=== PATIENT | female | born 1950 | race Caucasian/White ===

== ENCOUNTER → 2017-11-19 09:12 | Outpatient (CLI) | payer MEDICARE, OTHER, SELFPAY ==
--- NOTE | 2017-11-19 09:19 | MM_ITS ---
MM Dig screening mamm BI w/CAD CAD Screening COMPARISON: Digital mammograms 06/14/2015 and 10/08/2016 INDICATION: There is no personal or family history of breast cancer TECHNIQUE: Standard CC and MLO images were obtained. R2 CAD reviewed. FINDINGS: Moderate diffuse fibroglandular densities are seen in both breasts and the findings are bilateral and symmetrical. There are stable benign-appearing calcination is in each breast. There are small nodes in the axillary tails of each breast stable and unchanged from previous exams. There is no suspicious lesion and no suspicious microcalcifications. IMPRESSION: Stable exam no suspicious lesion seen BI-RADS Category: 2 Benign Finding(s) RECOMMENDED FOLLOW-UP: 1YR - 1 YEAR FOLLOW-UP (A letter has been sent to the patient regarding results of the study.)
== END ==
PROVIDERS: PCP Internal Medicine Adolescent Medicine; Visit Provider Internal Medicine Adolescent Medicine
DX: Z12.31 Encounter for screening mammogram for malignant neoplasm of breast (principal)
CPT/HCPCS: 77067

== ENCOUNTER → 2018-02-25 07:53 | Outpatient (CLI) | payer MEDICARE, OTHER, SELFPAY ==
--- NOTE | 2018-02-25 08:09 | MR_ITS ---
MR head/brain wo/w con HISTORY: ITS.REASON: SIXTH NERVE PALSY OF LEFT EYE, blurred vision, dysthymia ORDERING PHYSICIAN: Sidney Maldonado MD PATIENT AGE: 67 years TECHNIQUE: Standard multiplanar multiecho sequences are performed without contrast. FINDINGS: No midline shift, mass effect, intracranial hemorrhage, or hydrocephalus. No evidence of acute infarction. The cerebellopontine angle, cerebellum, and brainstem are unremarkable. There are a few scattered periventricular and subcortical T2 white matter hyperintensities. These do not demonstrate restricted diffusion and do not demonstrate contrast enhancement and may represent ischemic gliotic change from microvascular disease. No enhancing lesions are evident. Hippocampal gyri are unremarkable in the temporal horns are symmetric. No evidence of skull base lesion. No obvious aneurysm. Small aneurysms may not be detected with this technique and may be better evaluated for with MRA if clinically warranted. No mastoid effusion or sinus air-fluid level. The pituitary gland has an unremarkable appearance. No mass effect upon the optic chiasm. The optic tracts have an unremarkable appearance. No obvious orbital mass. IMPRESSION: 1. No acute intracranial finding. 2. Scattered T2 white matter hyperintensities which may be due to ischemic gliotic change from microvascular disease. Differential diagnosis would include multiple sclerosis or migraine headache. This correlate with clinical parameters.
[2018-02-25 08:12] LABS: Blood Urea Nitrogen 16 mg/dL (7-18); Creatinine,Serum 0.56 mg/dL (0.55-1.02); Estimated Glomerular Filt Rate 107 ml/min (>60); GFR (African American) 130 ML/MIN (>60)
[2018-02-25 09:56] LABS: Basophils % 0.8 % (0.1-2.0); Eosinophils # 0.2 K/mm3 (0.0-0.4); Eosinophils % 4.1 % (0.1-12.0); Hematocrit 40.3 % (37.0-47.0); Hemoglobin 13.7 g/dL (12.2-16.2); Lymphocytes # 1.9 K/mm3 (0.7-4.5); Lymphocytes % 44.9 K/mm3 (10-50); Mean Corpuscular HGB Conc 34.1 g/dL (31.8-35.4); Mean Corpuscular Hemoglobin 28.4 pg (27.0-31.2); Mean Corpuscular Volume 83.4 fl (81-99); Mean Platelet Volume 7.9 fl (7.4-10.4); Monocytes # 0.3 K/mm3 (0.1-1.0); Monocytes % 7.1 % (1.7-9.3); Neutrophils # 1.8 K/mm3 (1.8-7.8); Neutrophils % 43.2 % (37.0-80.0); Platelet Count 183 K/mm3 (142-424); Red Blood Count 4.83 M/mm3 (4.20-5.40); Red Cell Distribution Width 13.4 % (11.5-17.5); White Blood Count 4.2 K/mm3 (4.8-10.8)
[2018-02-25 10:16] LABS: Alanine Aminotransferase 26 U/L (12-78); Albumin Level 3.6 gm/dL (3.4-5.0); Albumin/Globulin Ratio 1.2 (1.1-1.8); Alkaline Phosphatase 60 U/L (46-116); Anion Gap 10.2 mEq/L (5-15); Aspartate Amino Transferase 17 U/L (15-37); Bilirubin,Total 0.5 mg/dL (0.2-1.0); Calcium 9.2 mg/dL (8.5-10.1); Carbon Dioxide 30 mmol/L (21.0-32.0); Chloride 105 mmol/L (98-107); Free Thyroxine Index 2.4 ug/dL (5.93-13.13); Globulin 3.1 gm/dl (1.3-3.2); Glucose 105 mg/dL (74-106); Potassium 3.2 mmoL/L (3.5-5.1); Sodium 142 mmol/L (136-145); T4 (Thyroxine) 6.8 ug/dl (4.7-13.3); Thyroid Stimulating Hormone 1.71 uIU/ml (0.358-3.740); Total Protein,Serum 6.7 gm/dL (6.4-8.2); Triiodothryronine (T3) Uptake 35 % (31-39)
[2018-02-25 10:20] LABS: Hemoglobin A1C 5.3 % (0.0-7.0)
== END ==
PROVIDERS: PCP Internal Medicine Adolescent Medicine; Visit Provider Internal Medicine Adolescent Medicine
DX: H49.22 Sixth [abducent] nerve palsy, left eye; F34.1 Dysthymic disorder; E11.9 Type 2 diabetes mellitus without complications
CPT/HCPCS: 36415; 70553; 80053; 83036; 84436; 84443; 84479; 85025; A9576

== ENCOUNTER → 2019-04-02 12:21 | Outpatient (CLI) | payer MEDICARE, OTHER, SELFPAY ==
[2019-04-02 15:39] LABS: Anion Gap 13.5 mEq/L (5-15); Blood Urea Nitrogen 12 mg/dL (7-18); Calcium 9.5 mg/dL (8.5-10.1); Carbon Dioxide 31 mmol/L (21.0-32.0); Chloride 103 mmol/L (98-107); Creatinine,Serum 0.74 mg/dL (0.55-1.02); Estimated Glomerular Filt Rate 78 ml/min (>60); GFR (African American) 94 ML/MIN (>60); Glucose 90 mg/dL (74-106); Potassium 3.5 mmoL/L (3.5-5.1); Sodium 144 mmol/L (136-145)
== END ==
PROVIDERS: Visit Provider Internal Medicine Adolescent Medicine
DX: E87.6 Hypokalemia (principal)
CPT/HCPCS: 36415; 80048; 83735

== ENCOUNTER → 2019-04-12 09:11 | Outpatient (CLI) | payer MEDICARE, OTHER, SELFPAY ==
--- NOTE | 2019-04-12 09:24 | MM_ITS ---
MM Dig screening mamm BI w/CAD CAD Screening COMPARISON: Digital mammograms with CAD 10/08/2016 and 11/19/2017 INDICATION: There is no personal or family history of breast cancer TECHNIQUE: Standard CC and MLO images were obtained. R2 CAD reviewed. FINDINGS: Moderate heterogenic fiber glandular densities are seen in central portions of both breasts. There are stable benign-appearing nodular densities in the axillary tails of each breast likely small intramammary nodes or low-lying axillary nodes. However the new density with smooth borders in her quadrant left breast not seen on previous 2 exams which may be an intramammary node as well however recommend patient return for ultrasound exam for additional evaluation. There are no suspicious microcalcifications. There is a benign-appearing calcification in each breast. IMPRESSION: Moderate breast density with new density with benign features left breast recommend patient return for ultrasound examination BI-RADS Category: 0 Need Additional Imaging Evaluation RECOMMENDED FOLLOW-UP: IMM - IMMEDIATE FOLLOW-UP RECOMMENDED (A letter has been sent to the patient regarding results of the study.)
== END ==
PROVIDERS: PCP Internal Medicine Adolescent Medicine; Visit Provider Internal Medicine Adolescent Medicine
DX: Z12.31 Encounter for screening mammogram for malignant neoplasm of breast (principal)
CPT/HCPCS: 77067

== ENCOUNTER → 2019-05-03 09:45 | Outpatient (CLI) | payer MEDICARE, OTHER, SELFPAY ==
--- NOTE | 2019-05-03 09:49 | US_ITS ---
US breast LT complete INDICATION: Left breast nodule, follow-up mammogram ORDERING PHYSICIAN: Sidney Maldonado MD PATIENT AGE: 68 years COMPARISON: 04/12/2019 TECHNIQUE: Complete breast ultrasound performed with axilla FINDINGS: There is a hypoechoic nodule in the 11:00 region of left breast corresponding to the mammographic abnormality. This does contain some low-level internal echoes and has a slightly lobular margin and is not parallel to the chest wall having a somewhat oblique orientation. There is no enhanced through transmission of sound. No appreciable posterior shadowing however. Since this is new and does not represent a simple cyst, would recommend biopsy IMPRESSION: No mammographic abdomen on a corresponds to a indeterminate solid-appearing nodule. Stereotactic directed biopsy recommended BI-RADS Category: 4 Suspicious Abnormality-Biopsy Considered RECOMMENDED FOLLOW-UP: BIO - BIOPSY RECOMMENDED (A letter has been sent to the patient regarding results of the study.)
== END ==
PROVIDERS: PCP Internal Medicine Adolescent Medicine; Visit Provider Internal Medicine Adolescent Medicine
DX: R92.8 Other abnormal and inconclusive findings on diagnostic imaging of breast (principal)
CPT/HCPCS: 76641

== ENCOUNTER → 2020-09-11 15:16 | Outpatient (CLI) | payer MEDICARE, OTHER, SELFPAY ==
--- NOTE | 2020-09-11 15:22 | XR_ITS ---
PROCEDURE: XR SHOULDER RT MIN 2V CLINICAL INDICATION: RT SHOULDER PAIN COMPARISON: No exams were available for comparison FINDINGS: No fracture or dislocation. No lytic or blastic change. There is normal mineralization. There are moderate to severe osteoarthritic changes of the glenohumeral joint with osteosclerosis of the humeral head and osteophyte formation. Mild osteoarthritic changes are present at the AC joint. Other findings:None. IMPRESSION: Osteoarthritis Dictated by: Ryan Maldonado MD 09/11/2020 15:56 Ryan Maldonado MD in [facility] 09/11/2020 15:56
== END ==
PROVIDERS: PCP Internal Medicine Adolescent Medicine; Visit Provider Internal Medicine Adolescent Medicine
DX: M25.511 Pain in right shoulder (principal)
CPT/HCPCS: 73030

== ENCOUNTER 2020-10-26 07:00 | Outpatient (RCR) | payer MEDICARE, OTHER, SELFPAY ==
--- NOTE | 2020-09-25 08:35 | HMH.PTOPEV ---
PT Outpatient Evaluation Rehab PT Outpatient Evaluation Start: 09/25/20 07:22 Freq: Status: Active Protocol: Document 09/25/20 07:22 [email or web address] (Rec: 09/25/20 08:35 [email or web address] [id number]) Electronically Signed By Jarrett Swartz, PT 09/25/20 07:22 Outpatient Therapy Subjective History Subjective History Pt. is a 70 year old female who presents to Outpatient PT clinic w/ complaints of subacute and constant but variable RUE shldr./elbow/forearm/wrist P! of trauamtic onset since 09/03. Pt. reports she missed the last step coming off the front porch and fell on her right side. Recent diagnostic imaging negative for a fracture nor bony abnormality, but positive for OA changes per pt. report. Pt. denies having injections for current pathology. Pt. RTMD for first of Nov. for blood work. Pt. reports symptoms worsen in the forearm/wrist w/ lifting a cup of coffee and opening a door, and shldr. symptoms worsen w/ fixing hair and lifting arm towards shldr. height. Pt. deneis having numbness/tingling into RUE. Current medications include Levothyroxine, Lisinopril, Bupropion, and Potassium. PMH includes Breast Cancer dx. 2019, Lumpectomy, Port Installation, and Chemotherapy Infusion. Current allergies include Tegaderm. Pt. denies latex allergy nor pacemaker. 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
== END 2020-11-09 14:20 | disposition home or self-care (01) ==
LOC: PT.CARL 07:00
PROVIDERS: PCP Internal Medicine Adolescent Medicine; Visit Provider Internal Medicine Adolescent Medicine
DX: M25.511 Pain in right shoulder (principal)
CPT/HCPCS: 97014; 97033; 97035; 97110; 97140; 97163; G0283

== ENCOUNTER 2021-12-08 15:38 | Emergency (ER) | payer MEDICARE, OTHER, SELFPAY ==
[2021-12-08] VITALS (8 sets, daily range): BP systolic 127–170; BP diastolic 70–98; PULSE 80–90; RESP 18–22; TEMP 36.7–36.9; O2SAT 94–99; BMI 41.5
--- NOTE | 2021-12-08 15:38 | PC.NURSE ---
Radiology bedside doing x-ray
--- NOTE | 2021-12-08 15:38 | XR_ITS ---
PROCEDURE INFORMATION: Exam: XR Left Humerus Exam date and time: 12/08/2021 3:38 PM Age: 71 years old Clinical indication: Injury or trauma; Fall; Fracture, traumatic injury; Closed fracture; Left; Shaft of humerus; Injury date: 12/08/21 TECHNIQUE: Imaging protocol: XR Left humerus. Views: 2 or more views. COMPARISON: No relevant prior studies available. FINDINGS: Bones/joints: Displaced fracture of the midshaft of the humerus present. There is no evidence of joint malalignment or dislocation. Soft tissues: Overlying soft tissue swelling. IMPRESSION: 1. Displaced fracture of the midshaft of the humerus present. 2. Overlying soft tissue swelling. 3. No evidence of acute dislocation.
--- NOTE | 2021-12-08 15:51 | HMH.EDGENADL ---
ED Disposition Clinical Impression: Humerus fracture Qualifiers: Encounter type: initial encounter Humerus Location: shaft Fracture type: closed Fracture morphology: oblique Fracture alignment: displaced Laterality: left Qualified Code(s): S42.332A - Displaced oblique fracture of shaft of humerus, left arm, initial encounter for closed fracture Disposition: Home, Self-Care Condition on Discharge: Fair Instructions: How to Use a Sling, How to Take Care of Your Splint, DI for Humeral Fracture Additional Instructions: Percocet as needed for pain. Additional instructions for FRACTURED (BROKEN) BONE: See Dr. Gregory this coming week for further treatment. Call Friday to make appointment. Treat your splint like you would a cast: Do not get it wet (cover with a plastic bag while bathing or showering). If the splint feels too tight, you may loosen the meggan wrap covering it, but do not remove the splint. You may ice the fracture by applying an ice pack over the top of the splint, without removing the splint. Return to an emergency department immediately if you have uncontrollable pain, loss of feeling or inability to move your injured extremity. Additional instructions for CONTROLLED SUBSTANCES: You have been prescribed a medication that is a controlled substance. Controlled substances include pain medications known as opiates and sedative nerve medications known as benzodiazepines. Tramadol, fioricet, and gabapentin are also controlled substances. Some common opiates include: Codeine (such as Tylenol #3) Hydrocodone (Vicodin, Lortab, Lorcet, [place]) Oxycodone (Percocet, Percodan, Oxycodone, Oxy IR) Some common benzodiazepines include: Diazepam (Valium) Lorazepam (Ativan) Alprazolam (Xanax) Clonazepam (Klonopin) Oxazepam (Serax) All of these controlled substances are highly addictive and frequently abused. Misuse can and frequently does lead to addiction as well as overdose and . Medication should be stored in a locked cabinet or other secure storage unit. Do not store the medication in a motor vehicle. Short term supplies, 3 days or less, are prescribed because of the highly addictive nature of the medication. Any of the controlled substance medication NOT taken should be disposed of properly and NOT SAVED. The recommended method of disposing of unused medications is: Place the medicines in a sealable plastic bag. If the medicine is a solid, crush it or add water to dissolve it. Add something undesirable (cat litter, coffee grounds, etc.) Dispose of sealed bag in household trash Do not flush or pour unused medicines down a sink or drain. Controlled substances should not be shared, given away or sold. Because of the addictive nature and frequent abuse, these medications are sometimes stolen. These medications should be kept in a safe place where they cannot be stolen. Do not keep them in your car or purse. Lost or stolen prescriptions for controlled substances WILL NOT BE REFILLED in this emergency department, regardless of whether a police report was filed. Prescriptions: Oxycodone HCl/Acetaminophen [Percocet 5/325mg tablet] 1 tab PO Q6HP PRN #20 tablet PRN Reason: Moderate To Severe Pain Transmission Status: [facility] [id number] Ondansetron [Zofran 4mg ODT] 4 mg PO TIDP PRN #10 tab PRN Reason: Nausea And Vomiting Transmission Status: Pending to [place] [id number] Referrals: Sidney Maldonado MD [Primary Care Provider] - Wagner Gregory JR, MD [Physician] - - Critical Care Critical Care Time: No Attestation: On 12/08/21, the high probability of a clinically significant, sudden or life threatening deterioration of the following system(s) required my full and direct attention, intervention and personal management. The time I documented below is in addition to time spent performing reported procedures but includes the following listed in this critical care notation.
--- NOTE | 2021-12-08 15:58 | PC.NURSE ---
Oxygen was put on patient at this time, per nurse.
--- NOTE | 2021-12-08 15:58 | PC.NURSE ---
Paging ortho education and development manager at this time.
--- NOTE | 2021-12-08 16:45 | PC.NURSE ---
Assisted Dr. Pruett in applying splint to left humerus. Splint applied to left arm as well after splinting was done.
== END 2021-12-08 19:41 | disposition home or self-care (01) ==
PROVIDERS: Emergency Provider Emergency Medicine; PCP Internal Medicine Adolescent Medicine
DX: S42.332A Displaced oblique fracture of shaft of humerus, left arm, initial encounter for closed fracture (principal); W01.198A Fall on same level from slipping, tripping and stumbling with subsequent striking against other object, initial encounter; Y92.014 Private driveway to single-family (private) house as the place of occurrence of the external cause; E78.5 Hyperlipidemia, unspecified; I10 Essential (primary) hypertension
CPT/HCPCS: 29105; 73060; 96372; 96374; 99282; J2405

== ENCOUNTER → 2021-12-21 09:39 | Outpatient (CLI) | payer MEDICARE, OTHER, SELFPAY ==
--- NOTE | 2021-12-21 09:44 | XR_ITS ---
FINAL REPORT CLINICAL HISTORY: LT humerus fx; IN CLAM SHELL BRACE COMPARISON: December 08, 2021 FINDINGS: LEFT HUMERUS 2 views were obtained. An overlying splint is in place. Again seen is a comminuted fracture of the mid and distal humeral diaphysis. A large free fragment is medially displaced approximately 11 mm. The joint spaces are intact. There is no soft tissue abnormality. IMPRESSION: Humeral fracture as described. Reviewed, Interpreted and Dictated by Emmanuel Awad MD Transcribed by Cindy Rick Authenticated by Emmanuel Awad MD on 12/21/2021 11:24:22 AM [facility]
== END ==
PROVIDERS: PCP Internal Medicine Adolescent Medicine; Visit Provider Orthopaedic Surgery
DX: S42.302A Unspecified fracture of shaft of humerus, left arm, initial encounter for closed fracture (principal)
CPT/HCPCS: 73060

== ENCOUNTER 2022-03-27 17:00 | Outpatient (RCR) | payer MEDICARE, OTHER, SELFPAY | END 2022-03-27 17:05 | disposition home or self-care (01) | LOC: PT 17:00 | PROVIDERS: PCP Internal Medicine Adolescent Medicine; Visit Provider Orthopaedic Surgery Sports Medicine | DX: S42.302D Unspecified fracture of shaft of humerus, left arm, subsequent encounter for fracture with routine healing (principal) | CPT/HCPCS: 97110; 97163; 97164 ==

== ENCOUNTER 2022-09-04 08:44 | Outpatient (RCR) | payer MEDICARE, OTHER, SELFPAY | END 2022-09-04 08:50 | disposition home or self-care (01) | LOC: PT 08:44 | PROVIDERS: PCP Internal Medicine Adolescent Medicine; Visit Provider Orthopaedic Surgery | DX: M25.512 Pain in left shoulder (principal); Z96.612 Presence of left artificial shoulder joint | CPT/HCPCS: 97163 ==

== ENCOUNTER → 2023-06-19 13:39 | Outpatient (CLI) | payer MEDICARE, OTHER, SELFPAY ==
[2023-06-19 14:20] LABS: Blood Urea Nitrogen 11 mg/dl (7-17); Estimated Glomerular Filt Rate 70 ml/min (>60); GFR (African American) 85 ML/MIN (>60)
== END ==
PROVIDERS: PCP Internal Medicine Adolescent Medicine; Visit Provider Internal Medicine Adolescent Medicine
DX: G45.8 Other transient cerebral ischemic attacks and related syndromes (principal); R06.09 Other forms of dyspnea
CPT/HCPCS: 36415; 82565; 84520; 93270

== ENCOUNTER → 2023-06-20 14:11 | Outpatient (CLI) | payer MEDICARE, OTHER, SELFPAY ==
--- NOTE | 2023-06-20 14:18 | CT_ITS ---
FINAL REPORT TECHNIQUE: thin section axial CT with and without IV contrast supplemented with multiplanar 3-D reconstruction of the head. This study was performed with techniques to keep radiation doses as low as reasonably achievable, (ALARA)individualized dose reduction techniques using automated exposure control or adjustment of mA and/or kV according to the patient's size were employed. CLINICAL HISTORY: TRANSIENT ISCHEMIC ATTACK FINDINGS: The cranial circulation is unremarkable. There is no significant stenosis, aneurysm or occlusion. IMPRESSION: No significant stenosis. Reviewed, Interpreted and Dictated by Emmanuel Awad MD Transcribed by Marlene Ruff Authenticated and [facility]
--- NOTE | 2023-06-20 14:18 | CT_ITS ---
FINAL REPORT TECHNIQUE: NASCET technique utilized for stenosis evaluation. CLINICAL HISTORY: TRANSIENT ISCHEMIC ATTACK FINDINGS: Streak artifact is seen overlying the right upper anterior chest. The cervical vasculature is well opacified. The carotid bifurcations are widely patent. The vessels are tortuous. IMPRESSION: No significant stenosis identified. Reviewed, Interpreted and Dictated by Emmanuel Awad MD Transcribed by Marlene Ruff Authenticated and [facility]
== END ==
PROVIDERS: PCP Internal Medicine Adolescent Medicine; Visit Provider Internal Medicine Adolescent Medicine
DX: G45.8 Other transient cerebral ischemic attacks and related syndromes (principal)
CPT/HCPCS: 70496; 70498; Q9967

== ENCOUNTER 2024-08-08 02:29 | Inpatient (IN) | payer MEDICARE, OTHER, SELFPAY ==
[2024-08-08] VITALS (27 sets, daily range): BP systolic 70–139; BP diastolic 31–104; PULSE 57–142; RESP 13–37; TEMP 36.4–36.8; O2SAT 3–99; BMI 43.9; BMI 45.3
--- NOTE | 2024-08-08 02:40 | XR_ITS ---
PROCEDURE INFORMATION: Exam: XR Chest Exam date and time: 08/08/2024 3:01 AM Age: 74 years old Clinical indication: Shortness of breath; Additional info: SOA TECHNIQUE: Imaging protocol: Radiologic exam of the chest. Views: 1 view. COMPARISON: CT ANGIO NECK 06/20/2023 2:27 PM FINDINGS: Lungs: Left lower lobe airspace disease. Pleural spaces: Unremarkable. No pleural effusion. No pneumothorax. Heart/Mediastinum: Cardiomegaly. Left-sided effusion. Bones/joints: Unremarkable. IMPRESSION: Cardiomegaly. Left-sided effusion. Left lower lobe airspace disease.
[2024-08-08 02:50] LABS: Basophils # 0.1 K/mm3 (0-0.2); Basophils % 1.4 % (0.1-2.0); Eosinophils # 0.2 K/mm3 (0.0-0.4); Eosinophils % 2.1 % (0.1-12.0); Hemoglobin 14.8 g/dL (12.2-16.2); Lymphocytes % 28.9 % (10-50); Mean Corpuscular HGB Conc 34.4 g/dL (31.8-35.4); Mean Corpuscular Hemoglobin 29.8 pg (27.0-31.2); Mean Corpuscular Volume 86.6 fl (81-99); Mean Platelet Volume 8.3 fl (7.4-10.4); Monocytes # 0.4 K/mm3 (0.1-1.0); Neutrophils # 4.4 K/mm3 (1.8-7.8); Neutrophils % 62.7 % (37.0-80.0); Platelet Count 184 K/mm3 (142-424); Red Blood Count 4.96 M/mm3 (4.20-5.40); Red Cell Distribution Width 14.2 % (11.5-17.5)
[2024-08-08] MEDS: dilTIAZem 25MG/5ML VIAL 15 MG IV (02:50)
[2024-08-08 02:51] LABS: Albumin Level 4.4 g/dl (3.5-5.0); Chloride 108 mmol/L (98-107); Sodium 140 mmol/L (136-145)
--- NOTE | 2024-08-08 02:52 | ED_ITS ---
Discharge Plan Disposition Patient Disposition: Admitted Condition: Fair Clinical Impressions Clinical Impression: Afib, Fluid overload, Generalized weakness Discharge ED Provider: Nia Perez General Chief Complaint: Shortness of Breath/Dyspnea Stated Complaint: SOA, hot flash, weakness Time Seen by Provider: 08/08/24 02:38 History of Present Illness HPI narrative: 74-year-old female with history of ARI on CPAP, prior history of breast cancer presents to the ER with generalized weakness and shortness of breath. Patient reports she has been feeling weak for the last week without any other symptoms of being ill. She states she is having to hang onto things as she ambulates through the house because she feels diffusely weak. She has no localizing numbness, tingling, or weakness, no headache or dizziness. She states her shortness of breath started in the last 1 to 2 days. Her reports she has been feeling hot to the touch but no documented fevers. Patient denies cough, chest pain, nausea, vomiting, diarrhea, dysuria, hematuria, or any other associated symptoms. Related Data Home Medications ?Medication ?Instructions ?Recorded ?Confirmed bupropion HCl 300 mg 24 hr tablet, 300 mg PO HS mood 11/29/19 08/08/24 extended release levothyroxine 50 mcg tablet 50 mcg PO AC thyroid 11/29/19 08/08/24 potassium chloride 20 mEq 20 meq PO DAILY Supplement 11/29/19 08/08/24 tablet,extended release(part/cryst) losartan 50 mg-hydrochlorothiazide 1 tab PO HS 08/08/24 08/08/24 12.5 mg tablet Allergies Allergy/AdvReac Type Severity Reaction Status Date / Time silver Allergy Verified 12/14/21 12:21 [From Tegaderm AG Mesh] [facility] Disclaimer: The information contained in this section may have been updated after the patient was seen, as this information can be updated by other users. Medical History (Updated 08/08/24 @ 06:18 by Nia Perez MD) Steel plate in left arm History of transient ischemic attack (TIA) Osteoarthritis Hypothyroid Sleep apnea Hyperlipidemia Hypertension Surgical History (Updated 08/08/24 @ 05:44 by Anne Marie Doyle RN) History of lumpectomy of left breast Social History (Updated 08/08/24 @ 05:48 by Anne Marie Doyle RN) Smoking Status: Never smoker alcohol intake: never current occupational status: retired Travel in the last 8 weeks: None Other Medical History Have you received the Flu Vaccine for this season: Yes Have you received the Pneumonia Vaccine: Yes ROS Obtained: Yes All systems reviewed & no additional complaints except as documented Positive ROS per HPI Physical Exam General General appearance: alert, in no apparent distress and obese Head Head exam: atraumatic and normocephalic Eye Eye exam: Present PERRL and EOMI ENT ENT exam: Present mucous membranes moist Neck Neck exam: Present normal inspection and full ROM Chest Chest inspection: Present symmetric chest wall rise Respiratory Respiratory exam: Absent respiratory distress or stridor Cardiovascular Cardiovascular exam: Present tachycardia and irregular rhythm Abdominal Exam Abdominal exam: Present soft; Absent distention or tenderness Extremities Exam Extremities exam: Present full ROM, normal capillary refill and edema (+1 bilateral lower extremity pitting edema); Absent joint swelling or calf tenderness Neurological Exam Neurological exam: Present alert and oriented X3; Absent motor sensory deficit Psychiatric Psychiatric exam: Present normal affect and normal mood Skin Skin exam: Present warm and dry HEART Score HEART Score HEART Score assessment performed?: Yes History (anamnesis): Slightly suspicious ECG: Non-specific disturbance Age: >65 years Risk factors: 1-2 risk factors Troponin: 1-3x normal limit HEART Score: 5 Critical Care Critical Care Time Critical Care Time: No Medical Decision Making Medical Records Medical records reviewed: Yes I reviewed the patient's medical records. MR Comment: Patient has previously had follow-up with podiatry, onychodystrophy, onychoincurvatum, and they noted that she completed chemo in September 2019 for breast cancer. Cardiac event monitor from 1 year ago demonstrated sinus rhythm with rates between 49 and 129, PACs, atrial couplets, atrial runs, and PSVT were noted. PVCs, ventricular trigeminy, ventricular couplets, ventricular runs, and ventricular tachycardia were recorded. Patient reports she follows with [facility] Inquiry Pt receiving controlled substance: No Vital Signs Vital Signs: 08/08/24 02:29 08/08/24 02:48 08/08/24 02:52 Temperature 97.5 F L Temperature Source Oral Pulse Rate 142 H 76 Pulse Rate [Right Radial] 68 Respiratory Rate 18 20 17 Blood Pressure 120/78 122/77 Blood Pressure [Right Arm] 135/95 H Blood Pressure Mean [Right Arm] 108 Blood Pressure Source Blood Pressure Source [Right Arm] Automatic Cuff Blood Pressure Position Blood Pressure Position [Right Arm] Supine 02 Sat by Pulse Oximetry 99 95 96 Oxygen Delivery Method Room Air 08/08/24 03:00 08/08/24 03:30 08/08/24 04:00 Temperature Temperature Source Pulse Rate 104 H 59 L 74 Pulse Rate [Right Radial] Respiratory Rate 20 13 21 Blood Pressure 131/77 135/87 131/85 Blood Pressure [Right Arm] Blood Pressure Mean [Right Arm] Blood Pressure Source Blood Pressure Source [Right Arm] Blood Pressure Position Blood Pressure Position [Right Arm] 02 Sat by Pulse Oximetry 96 97 96 Oxygen Delivery Method 08/08/24 04:30 08/08/24 05:00 08/08/24 05:16 Temperature 97.9 F Temperature Source Oral Pulse Rate 60 63 106 H Pulse Rate [Right Radial] Respiratory Rate 23 20 18 Blood Pressure 121/104 H 129/86 130/72 Blood Pressure [Right Arm] Blood Pressure Mean [Right Arm] Blood Pressure Source Automatic Cuff Blood Pressure Source [Right Arm] Blood Pressure Position Supine Blood Pressure Position [Right Arm] 02 Sat by Pulse Oximetry 97 97 Oxygen Delivery Method Room Air Lab Data Labs: Lab Results 08/08/24 02:28: WBC 7.0, RBC 4.96, Hgb 14.8, Hct 43.0, MCV 86.6, MCH 29.8, MCHC 34.4, RDW 14.2, Plt Count 184, MPV 8.3, Neut % (Auto) 62.7, Lymph % (Auto) 28.9, Hern[place] % (Auto) 5.0, Eos % (Auto) 2.1, Baso % (Auto) 1.4, Neut # (Auto) 4.4, Lymph # (Auto) 2.0, Hern[place] # (Auto) 0.4, Eos # (Auto) 0.2, Baso # (Auto) 0.1, PT 11.3, INR 1.01, D-Dimer 0.62 H, Sodium 140, Potassium 3.0 L, Chloride 108 H, Carbon Dioxide 24, Anion Gap 11.0, BUN 19 H, Creatinine 0.80, Estimated GFR 70, Est GFR ( Amer) 84, Glucose 135 H, Calcium 9.7, Total Bilirubin 0.9, AST 74 H, A LT 104 H, Alkaline Phosphatase 61, Troponin I 0.04 H, NT-Pro-B Natriuret Pep 2290 H, Total Protein 6.8, Albumin 4.4, Globulin 2.5, Albumin/Globulin Ratio 1.8 08/08/24 02:38: HIV 1&2 Antibody Rapid Nonreactive 08/08/24 02:28 08/08/24 02:28 Response Orders (Tests/Meds): ED MEDICATIONS Discontinued Medications Generic Name Dose Route Start Last Admin Trade Name Zohreh PRN Reason Stop Dose Admin Diltiazem HCl 15 mg 08/08/24 02:40 08/08/24 02:50 Diltiazem 25mg/5ml Vial IV 08/08/24 02:41 15 mg ONCE ONE Administration Diltiazem HCl 10 mg 08/08/24 04:54 08/08/24 05:03 Diltiazem 25mg/5ml Vial IV 08/08/24 04:55 10 mg ONCE ONE Administration Lactated Ringer's 1,000 mls @ 999 mls/hr 08/08/24 02:59 08/08/24 03:13 Lactated Ringer's 1000 Ml Bag IV 08/08/24 03:59 999 mls/hr .Q1H1M ONE Administration Potassium Chloride 60 meq 08/08/24 02:59 08/08/24 03:13 Potassium Chloride 20meq Tab PO 08/08/24 03:00 60 meq ONCE ONE Administration ORDERS Category Date Time Status XR chest portable Stat Exams 08/08/24 02:40 Taken Complete Blood Count Auto Diff Stat Lab 08/08/24 02:28 Completed Comprehensive Metabolic Panel Stat Lab 08/08/24 02:28 Completed D-Dimer Stat Lab 08/08/24 02:28 Completed HIV (1&2) Antibody Rapid Stat Lab 08/08/24 02:38 Completed Hep C Ab with Reflex to RNA Stat Lab 08/08/24 02:38 Received NT Pro Brain Natriuretic Pep. Stat Lab 08/08/24 02:28 Completed Prothrombin Time INR Stat Lab 08/08/24 02:28 Completed Troponin I Q3H Lab 08/08/24 02:28 Completed Troponin I Q3H Lab 08/08/24 05:45 Ordered Troponin I Q3H Lab 08/08/24 08:45 Ordered ECG Request Stat Y 08/08/24 04:01 Ordered MDM Narrative Medical Decision Narrative: In summary, this 74-year-old female presents to the emergency department today with generalized weakness, shortness of breath. On initial evaluation patient is tachycardic and irregular but normotensive, +1 pitting edema in bilateral lower extremities, capillary refill, lungs clear bilaterally, no neurologic deficits, remainder of exam benign. Differential diagnosis includes but is not limited to ACS, PE, arrhythmia, electrolyte abnormality, pneumonia, pneumothorax, thyroid abnormality. Based on these concerns, I ordered cardiac workup, chest x-ray, serum labs. ECG personally interpreted demonstrates atrial fibrillation, rapid ventricular response, rate 142, normal axis, normal QTc, no findings of STEMI. Patient received diltiazem for treatment and rate control. On reassessment, patient's heart rate improved from the 170s to the 110s. She remains normotensive Labs personally reviewed demonstrate normal CBC, PT/INR normal, CMP with hypokalemia, potassium 3.0, patient is receiving oral repletion, trace prerenal azotemia. Patient is receiving IV fluids. For tachycardia and prerenal azotemia. Further labs resulted demonstrating slight elevation of troponin, in the setting of very reassuring ECG and patient not having any chest pain, I believe this is likely due to the patient's persistent tachycardia and therefore demand related. Patient does have elevated proBNP and findings of pulmonary edema on my personal interpretation of chest x-ray. Therefore patient will receive IV Lasix. D-dimer slightly elevated but with years criteria, patient does not require CTA PE at this time. On reassessment, patient's heart rate had improved initially, but was starting to increase again. Additional 10 mg IV diltiazem was administered. She does feel somewhat improved but given the abnormalities on her cardiac workup, findings of pulmonary edema, and new A-fib with RVR that will likely require anticoagulation, I believe patient requires admission at this time. I discussed this case with the hospitalist who graciously accepted the patient for admission.
[2024-08-08 02:54] LABS: Alanine Aminotransferase 104 U/L (12-78); Alkaline Phosphatase 61 U/L (38-126); Aspartate Amino Transferase 74 U/L (14-36); Bilirubin,Total 0.9 mg/dl (0.2-1.3); Blood Urea Nitrogen 19 mg/dl (7-17); Calcium 9.7 mg/dl (8.4-10.2); Carbon Dioxide 24 mmol/L (22.0-30.0); Estimated Glomerular Filt Rate 70 ml/min (>60); GFR (African American) 84 ML/MIN (>60); Glucose 135 mg/dl (74-100); Total Protein,Serum 6.8 g/dl (6.3-8.2)
[2024-08-08 02:55] LABS: INR 1.01 (0.9-1.1); Prothrombin Time 11.3 seconds (10.1-12.5)
--- NOTE | 2024-08-08 03:00 | ECG_ITS ---
APPROVED REPORT Exam: Resting ECG HR:142 bpm ECG Measurements Heart Rate 142 AXES QRSd 100 QRS 11 QT 284 T 73 QTc 366 Conclusion ATRIAL FIBRILLATION WITH RAPID VENTRICULAR RESPONSE LOW QRS VOLTAGE IN EXTREMITY LEADS [QRS DEFLECTION < 0.5 mV IN LIMB LEADS] MODERATE ST DEPRESSION [0.05+ mV ST DEPRESSION] No STEMI Electronically signed by : SHAUNA JAUREGUI, 08/08/2024 06:34:16
[2024-08-08 03:03] LABS: D-Dimer 0.62 ug/mL (0.0-0.5)
[2024-08-08 03:04] LABS: NT Pro Brain Natriuretic Pep. 2290 pg/mL (0-450)
[2024-08-08 03:06] LABS: Troponin I 0.04 ng/ml (0.00-0.034)
[2024-08-08] MEDS: LACTATED RINGERS 1000ML 1,000 ML 999 ML IV (03:13)
[2024-08-08] MEDS: POTASSIUM CHLORIDE 20MEQ TAB 60 MEQ PO (03:13)
[2024-08-08 03:22] LABS: Albumin/Globulin Ratio 1.8 (1.1-1.8); Globulin 2.5 g/dL (1.3-3.2)
[2024-08-08 03:58] LABS: HIV (1&2) Antibody Rapid NONREACTIVE (NONREACTIVE)
--- NOTE | 2024-08-08 04:01 | ECG_ITS ---
APPROVED REPORT Exam: Resting ECG HR:118 bpm ECG Measurements Heart Rate 118 AXES QRSd 98 QRS 0 QT 320 T 85 QTc 390 Conclusion ATRIAL FIBRILLATION WITH RAPID VENTRICULAR RESPONSE MODERATE ST DEPRESSION [0.05+ mV ST DEPRESSION] No STEMI Electronically signed by : SHAUNA JAUREGUI, 08/08/2024 06:40:30
--- NOTE | 2024-08-08 04:21 | PC.NURSE ---
Patient resting in bed with eyes open and at bedside
[2024-08-08] MEDS: dilTIAZem 25MG/5ML VIAL 10 MG IV ×2 (05:03→06:21)
--- NOTE | 2024-08-08 05:28 | PC.NURSE ---
Patient arrived to floor via wheelchair from ED at 05:26.
--- NOTE | 2024-08-08 06:36 | P.HP_ITS ---
History of Present Illness *Admission Date: 08/08/24 *Reason for visit:: Severe weakness with shortness of air and diaphoresis at times *History of present illness: This 74-year-old female, that is obese. Comes into the emergency room after not feeling well for the last week., She described last Friday feeling weak while shopping had to come get the car and take her home felt bad the next day got a little better Friday and then symptoms returned on , she stated she could not feel her heart beating rapidly and does not feel it beating rapidly now. 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 Araujo. She noted she is supposed to be on cholesterol medication but has been unable to take that and not taken it since February, she reports that she has suffered no trauma or illnesses within the last 30 days., Notable history breast cancer treated with radiation and chemotherapy in 2019, being on thyroid medication she also noted approximately a year ago had a TIA, was seen by her locomotive inspector after that this symptom has never returned. Only anticoagulation the patient is on is a baby aspirin Patient also noted for being on CPAP on a regular basis for sleeping. Presently not having any chest pain or symptoms. Heart rate after returning to the floor had increased back up into the 140s and other 10 mg of Cardizem IV was given. , [facility] Disclaimer: The information contained in this section may have been updated after the patient was seen, as this information can be updated by other users. Medical History (Updated 08/08/24 @ 12:13 by Jeremy Hunter MD) Steel plate in left arm History of transient ischemic attack (TIA) Osteoarthritis Hypothyroid Sleep apnea Hyperlipidemia Hypertension Surgical History History of lumpectomy of left breast Social History Smoking Status: Never smoker alcohol intake: never current occupational status: retired Travel in the last 8 weeks: None Other Medical History Have you received the Flu Vaccine for this season: Yes Have you received the Pneumonia Vaccine: Yes Review of Systems Review of Systems Review of systems:: pertinent systems reviewed and negative unless documented below Constitutional Constitutional: Reports as per HPI, Reports fatigue and Reports lethargy Comments: Patient reported that over this last week having episodes of fatigue lack of energy, not having the strength to do her normal routine., And at times soaked with sweat this had been going on and off for more than 5 days Eyes Eyes: Reports as per HPI ENT Ears, Nose, Mouth, and Throat: Reports as per HPI *Cardiovascular Cardiovascular: Reports dyspnea and Reports dyspnea on exertion *Respiratory Respiratory: Reports dyspnea and Reports dyspnea on exertion Comments: Patient reports she did not have a cough she has not had any illnesses in the last month *Gastrointestinal Gastrointestinal: Reports as per HPI Comments: Patient reported no change in gastric habits able to eat bowel and urine working normally *Genitourinary Genitourinary: Reports as per HPI *Musculoskeletal Musculoskeletal: Reports as per HPI Integumentary/Breasts Skin/Breast: Reports as per HPI *Neurologic Neurologic: Reports as per HPI Psychiatric Psychiatric: Reports as per HPI Endocrine Endocrine: Reports as per HPI and Reports fatigue Hematologic/Lymphatic Hematologic/Lymphatic: Reports as per HPI Allergic/Immunologic Allergic/Immunologic: Reports as per HPI Meds Home Medications and Allergies Home Medications ?Medication ?Instructions ?Recorded ?Confirmed ?Type bupropion HCl 300 mg 24 hr tablet, 300 mg PO HS 11/29/19 08/08/24 History extended release levothyroxine 50 mcg tablet 50 mcg PO DAILY 11/29/19 08/08/24 History potassium chloride 20 mEq 20 meq PO DAILY 11/29/19 08/08/24 History tablet,extended release(part/cryst) aspirin 81 mg tablet,delayed 81 mg PO DAILY 08/08/24 08/08/24 History release losartan 50 mg-hydrochlorothiazide 1 tab PO HS 08/08/24 08/08/24 History 12.5 mg tablet New Prescriptions to Start Prescriptions: Allergies Allergy/AdvReac Type Severity Reaction Status Date / Time silver Allergy Verified 12/14/21 12:21 [From Tegaderm AG Mesh] Exam Data for Last 24 hours Vital signs and Labs for Last 24 Hours: Temp Pulse Resp BP Pulse Ox O2 Del Method 97.5 F L 122 H 18 131/70 96 Room Air 08/08/24 05:42 08/08/24 06:00 08/08/24 05:42 08/08/24 05:42 08/08/24 05:42 08/08/24 05:56 Laboratory Results - last 24 hr 08/08/24 02:28: WBC 7.0, RBC 4.96, Hgb 14.8, Hct 43.0, MCV 86.6, MCH 29.8, MCHC 34.4, RDW 14.2, Plt Count 184, MPV 8.3, Neut % (Auto) 62.7, Lymph % (Auto) 28.9, Jennings % (Auto) 5.0, Eos % (Auto) 2.1, Baso % (Auto) 1.4, Neut # (Auto) 4.4, Lymph # (Auto) 2.0, Jennings # (Auto) 0.4, Eos # (Auto) 0.2, Baso # (Auto) 0.1, PT 11.3, INR 1.01, D-Dimer 0.62 H, Sodium 140, Potassium 3.0 L, Chloride 108 H, Carbon Dioxide 24, Anion Gap 11.0, BUN 19 H, Creatinine 0.80, Estimated GFR 70, Est GFR ( Amer) 84, Glucose 135 H, Calcium 9.7, Total Bilirubin 0.9, AST 74 H, ALT 104 H, Alkaline Phosphatase 61, Troponin I 0.04 H, NT-Pro-B Natriuret Pep 2 290 H, Total Protein 6.8, Albumin 4.4, Globulin 2.5, Albumin/Globulin Ratio 1.8 08/08/24 02:38: HIV 1&2 Antibody Rapid Nonreactive I & O for Last 24 hours: Intake & Output 08/05/24 08/06/24 08/07/24 08/08/24 23:59 23:59 23:59 23:59 Output Total 0 / 0 Balance 0 / 0 Weight 104.916 kg Radiology Reports for the Last 24 Hours: Examination of x-ray that has not been read yet showed that lungs are relatively clear but she has a very enlarged left ventricle Constitutional Constitutional: mild distress Comments: Patient is comfortable at the present time in no distress whatsoever, alert active talking well and actually has a smile on her face *Routine HEENT Exam Head: Present normocephalic and atraumatic Eye: Present EOMI and PERRL ENT: Present mucous membranes moist *Routine Neck Exam Neck: Present supple and full ROM Routine Chest/Breast/Axilla Exam Comments: No chest wall tenderness found *Routine Respiratory Exam Respiratory: Present CTA bilaterally, normal respiratory effort, able to speak in complete sentences and symmetric chest movement Comments: Lung sounds are decreased but there is no adventitious sounds equal expansion bilaterally *Routine Cardiovascular Exam Cardiovascular: Present tachycardia and irregular rhythm Comments: Irregular rhythm but the valve sounds appear to be normal no significant bruit or murmur heard, some short pauses felt during while examining pulse and also upon auscultation less than 2 seconds *Routine Abdominal Exam Abdominal: Present soft, normoactive bowel sounds and obese *Routine Rectal Exam Rectal:: deferred *Routine Genitalia Exam Genitalia:: deferred *Routine Extremities Exam Comments: Did not stand patient during the exam but she was able to get from the stretcher to the wheelchair to come up stairs without any problems. Moves all extremities well, there was no edema in the lower extremities Routine Back/Spine/Pelvis Exam Back/Spine: Present full ROM Comments: Moves well no sign of any significant back injuries or limitations *Routine Skin Exam Skin: Present intact and warm Comments: Patient is pink warm and dry for all skin no breakdown nailbeds are pink with brisk capillary refill *Routine Neurological Exam Neurological: Present alert, oriented X3, CN II-XII intact, normal tone, vision grossly intact and hearing grossly intact Routine Psychiatric Exam Psychiatric: Present normal affect, normal thought process, cooperative, good insight and good judgment H&P: Result Impressions Sudden onset of atrial fibs with RVR, from history may have been coming and going over the last week presently constant. Imaging and Cardiology Chest x-ray: Status: image reviewed by me Additional comments: Cardiomegaly with a large left ventricle and some left lung pleural effusion Assessment and Plan *Assessment and plan (1) Atrial fibrillation with RVR: Status: Acute Category: Medical Code(s): I48.91 - Unspecified atrial fibrillation (2) Cardiomegaly: Status: Acute Category: Medical Code(s): I51.7 - Cardiomegaly (3) Fluid overload: Status: Acute Category: Medical Code(s): E87.70 - Fluid overload, unspecified (4) Pleural effusion: Status: Acute Category: Medical Code(s): J90 - Pleural effusion, not elsewhere classified (5) Generalized weakness: Status: Acute Category: Medical Code(s): R53.1 - Weakness (6) Sleep apnea: Problem Comment: Does wear a cpap Status: Acute Category: Medical Code(s): G47.30 - Sleep apnea, unspecified (7) Morbid obesity with body mass index (BMI) of 40.0 to 44.9 in adult: Status: Chronic Category: Medical Code(s): E66.01 - Morbid (severe) obesity due to excess calories; Z68.41 - Body mass index [BMI] 40.0-44.9, adult Plan 74-year-old female with history of hypertension, obesity, hypothyroid, and anxiety. Presented to the ER with a week of shortness of breath. In the ER, found to be in A-fib with RVR. Case discussed with ER physician, request admission for treatment of A-fib and cardiology eval. Medicine agreed to admit for further management. Received diltiazem in the ER but had decrease in blood pressure. Transitioned to metoprolol. Monitoring on telemetry. Problems addressed as follows: A-fib with RVR Hypertension CHF -Per my review of EKG, patient in A-fib with RVR. -Initial troponin 0.04, repeat 0.05. Patient denying any chest pain. BNP elevated at 2200. -Received diltiazem in the ER, transition to metoprolol tartrate 50 mg every 8 hours. Unclear patient's EF, will hold on further diltiazem pending echo -Initiate Lovenox 1 mg/kg twice daily for anticoagulation. Will transition to oral anticoagulation after echo -Cardiology consulted, to see patient in the morning. -Will obtain records from [facility] from patient's locomotive inspector, evaluate if she has had previous echo. -Per my review of chest imaging, x-ray concerning for cardiomegaly with increased pulmonary edema/effusions. Will diurese with bumex 1mg BID - hold home HTN meds -TTE ordered for the morning - Labs showed liver function slightly elevated glucose slightly elevated. D- dimer was elevated but does not meet criteria for PE Hypokalemia: - potassium low 3.0. Kidney function normal BUN 19, creatinine 0.8. Will replace potassium with 40 mEq 3 times daily while diuresing. -CBC, CMP, magnesium ordered for the morning Anxiety: resume home Wellbutrin 300mg daily Hypothyroid: continue home levothyroxine 50mcg daily, tsh ordered for the morning. History of sleep apnea but only wears her CPAP mask at night, she says she will ask her to bring her CPAP and she knows if it is not possible that we would then be able to provide her CPAP here, Morbid obesity: complicates all aspects of her care Full code Lovenox 1mg/kg BID Cardiac diet Rounded on patient after nurse practitioner. Personally examined and i nterviewed patient. Agree with exam findings and care plan as documented. Adjustments made to plan above.
[2024-08-08] MEDS: METOPROLOL TARTRATE 5MG/5ML VIAL 5 MG IV ×2 (07:09→10:39)
[2024-08-08 08:39] LABS: Troponin I 0.05 ng/ml (0.00-0.034)
[2024-08-08] MEDS: METOPROLOL TARTRATE 50MG TABLET 50 MG PO (08:41)
[2024-08-08] MEDS: BUMETANIDE 1MG/4ML VIAL 1 MG IV (08:41)
[2024-08-08] MEDS: POTASSIUM CHLORIDE 20MEQ TAB 40 MEQ PO ×3 (08:42→20:18)
[2024-08-08] MEDS: ONDANSETRON 4MG/2ML VIAL 4 MG IV ×2 (09:46→15:27)
[2024-08-08] MEDS: ENOXAPARIN 120MG/0.8ML SYRINGE 105 MG SQ ×2 (10:39→20:20)
[2024-08-08 13:04] LABS: Troponin I 0.04 ng/ml (0.00-0.034)
--- NOTE | 2024-08-08 13:05 | HMH.PHAINT1 ---
Pharmacy Intervention Comments: MEDICATION RECONCILIATION COMPLETED ON PATIENT USING PATIENT'S OWN MEDICATION BOTTLES. -RICKEY SCOTT, KRISTOFERD
[2024-08-08] MEDS: AMIODARONE HCL 150 MG in DEXTROSE 5 % IN WATER 100 ML 618 MG IV (14:44)
[2024-08-08] MEDS: AMIODARONE HCL 900 MG in DEXTROSE 5 % IN WATER 500 ML 34.53 MG IV (14:59)
--- NOTE | 2024-08-08 15:40 | ECG_ITS ---
APPROVED REPORT Exam: Resting ECG HR:119 bpm ECG Measurements Heart Rate 119 AXES QRSd 97 QRS 71 QT 322 T 78 QTc 393 Conclusion ATRIAL FIBRILLATION WITH RAPID VENTRICULAR RESPONSE INDETERMINATE AXIS LOW QRS VOLTAGE IN PRECORDIAL LEADS [QRS DEFLECTION < 1.0 mV IN CHEST LEADS] PATTERN CONSISTENT WITH PULMONARY DISEASE ABNORMAL ECG UNCONFIRMED REPORT Electronically signed by : Sidney Maldonado MD 08/11/2024 09:21:41
[2024-08-08] MEDS: MILRINONE LACTATE 20 MG in 0.9 % SODIUM CHLORIDE 80 ML 157 MG IV (16:35)
[2024-08-08] MEDS: MILRINONE LACTATE 20 MG in 0.9 % SODIUM CHLORIDE 80 ML 3.93 MG IV (16:45)
--- NOTE | 2024-08-08 17:12 | P.PN_ITS ---
Critical Care Event Note Summary Code activated: No Narrative: This case had a high probability of a clinically significant, sudden, or life threatening deterioration of this patient's condition which required my full and direct attention, intervention and personal management. ICU/Critical care attestation Patient had struggled with A-fib throughout the day since admission. Received a dose of diltiazem in the morning on arrival. Had been transition to metoprolol given concern for cardiomegaly on chest x-ray. He was having no improvement in heart rate. Decision made to initiate amiodarone. Received bolus and had transition to the drip. I was called to bedside due to patient's blood pressure continuing to drop. Systolic blood pressure in the 70s. Patient had had nausea off and on through most of the day. Heart rate remained elevated. Concern for unstable tachyarrhythmia in the setting of her A-fib. Discussed case with ER physician, he was gracious enough to come to the bedside and do bedside eval of her heart. Concern for ejection fraction between 20 and 30%. After discussion with ER and consultation with cardiology, decision to hold on cardioversion and initiate milrinone. Patient appeared to be in low cardiac output state. Feet were cool, patient diaphoretic. Initiated on milrinone. Loaded with 50 mcg/kg over 10 minutes. Noted to have an improvement in her blood pressure and clinical improvement thereafter. Patient was placed on oxygen more for comfort then necessity at this time as she was tachypneic. Continue to monitor patient at bedside with adjustments to dosing of milrinone for the next 35 minutes. As her blood pressure improved after bolus and had clinical improvement, milrinone was transition to drip at 0.2 mcg/kg/min. Showed continued stability in her blood pressure. Discussed potential for cardioversion if patient remained unstable. Patient agreeable. Did not need to proceed with cardioversion however. Escalated care to ICU for close monitoring while on amiodarone and milrinone drips. This patient is critically ill with 45 minutes devoted solely to this patient managing life/organ supporting interventions that required physician assessment. This includes time spent making adjustments in ventilator settings, IV fluid administration, titration of pressors, adjustments of medications, discussion of patient with consultants and other care providers as well as updating patient and/or family (if patient by virtue of his/her condition is unable to participate in decision making). This does not include time spent performing separately billed procedures. Time is not concurrent with that of other providers. Critical care time: 30 - 74 mins [facility] Critical Care Exam Physical Exam Vital signs: Temp Pulse Resp BP Pulse Ox O2 Del Method 98.2 F 96 H 24 119/64 94 L Room Air 08/08/24 15:42 08/08/24 14:00 08/08/24 14:00 08/08/24 14:00 08/08/24 14:00 08/08/24 15:00 Constitutional Constitutional: Present moderate distress, morbidly obese and cooperative Routine Respiratory Exam Respiratory: Absent rhonchi, stridor, wheezes or crackles Comments: Tachypneic Routine Cardiovascular Exam Cardiovascular: Present tachycardia and irregularly irregular Routine Extremities Exam Extremities: Present edema (Trace in legs) and pulses intact (But weak); Absent cyanosis Comments: Feet cool, no mottling Routine Neurological Exam Neurological: Present alert, oriented X3 and moving all extremities; Absent altered mental status
--- NOTE | 2024-08-08 18:24 | PC.NURSE ---
THIS SHIFT PT BEGAN TO HAVE SYMPTOMATIC TACHY DYSRHYTHMIA. PT WAS DIAPHORETIC, PALE, SHORT OF BREATH, AND NAUSEATED. MD CALLED TO BEDSIDE. PT WAS PLACED ON A MILRINONE GTT AND MADE ICU. PT IS CURRENTLY STABLE ON THE GTT AND REPORTS THAT SHE FEELS MUCH BETTER. PT HAS MORE COLOR AND IS NO LONGER NAUSEOUS.
[2024-08-08 19:42] LABS: Albumin Level 4.2 g/dl (3.5-5.0); Chloride 110 mmol/L (98-107); Potassium 5.1 mmoL/L (3.5-5.1); Sodium 139 mmol/L (136-145)
[2024-08-08 19:45] LABS: Alanine Aminotransferase 195 U/L (12-78); Albumin/Globulin Ratio 1.4 (1.1-1.8); Alkaline Phosphatase 30 U/L (38-126); Anion Gap 15.1 mEq/L (5-15); Aspartate Amino Transferase 189 U/L (14-36); Bilirubin,Total 1.7 mg/dl (0.2-1.3); Blood Urea Nitrogen 23 mg/dl (7-17); Carbon Dioxide 19 mmol/L (22.0-30.0); Creatinine Clearance Estimated 33 mL/min (50-200); Estimated Glomerular Filt Rate 61 ml/min (>60); GFR (African American) 74 ML/MIN (>60); Globulin 2.9 g/dL (1.3-3.2); Total Protein,Serum 7.1 g/dl (6.3-8.2)
[2024-08-08 19:46] LABS: Calcium 9.2 mg/dl (8.4-10.2); Glucose 97 mg/dl (74-100)
[2024-08-08] MEDS: PANTOPRAZOLE 40MG TABLET 40 MG PO (20:18)
[2024-08-08] MEDS: BUPROPION 300 MG 1 EACH PO (20:18)
[2024-08-08 20:53] LABS: Magnesium 1.9 mg/dl (1.6-2.3)
--- NOTE | 2024-08-08 21:18 | PC.NURSE ---
Nidia Pascual states magnesium is compatible with milrinone and can be given together.
[2024-08-08] MEDS: MAGNESIUM SULFATE IN WATER 2 GM/50 ML PIGGYBACK IV (21:21)
[2024-08-09] VITALS (35 sets, daily range): BP systolic 93–170; BP diastolic 58–95; PULSE 50–143; RESP 12–24; TEMP 36.1–36.8; O2SAT 89–100; BMI 45.8
[2024-08-09] MEDS: MILRINONE LACTATE 20 MG in 0.9 % SODIUM CHLORIDE 80 ML 3.93 MG IV (03:36)
--- NOTE | 2024-08-09 06:09 | PC.NURSE ---
Pt A&OX4. Was on 3L nasal cannula and switched to home CPAP at midnight. Lung sounds diminished and bowel sounds active in all quadrants. Pt has remained on Amioderone and Milrinone gtt throughout the shift. BPs have fluctuated throughout the night and provider notified. States he is ok as long as maps are above 60. She has remained in A-fib on monitor. Family has remained at bedside. Currently asleep with call light within reach.
[2024-08-09] MEDS: *PAT OWN MED* LEVOTHYROXINE 50MCG (0.05MG) TAB 50 MCG PO (06:35)
[2024-08-09 06:58] LABS: Albumin Level 3.9 g/dl (3.5-5.0); Chloride 111 mmol/L (98-107); Potassium 5.2 mmoL/L (3.5-5.1); Sodium 138 mmol/L (136-145)
--- NOTE | 2024-08-09 07:00 | CA_ITS ---
APPROVED REPORT EXAM: Comprehensive 2D, Doppler, and color-flow Echocardiogram Conference Service Coordinator: Ivania Thomason RVT Ht: 4 ft 11 in Wt: 231lbs BSA: 1.96 BP: 130/72 mmHg Indications: AIFIB,ARI,EDEMA,FATIGUE,SOA,HTN,HLD TDS-R/T A-FIB,PT FLAT ON BACK 2D Dimensions LA Volume 84.30 mL LA Volume Index 43.01 mL/m2 (M/F) 16-34 M-Mode Dimensions RVDd 2.54 cm (0.9-2.6) LA Diam 3.68 cm (1.9-4.0) LVDd 5.09 cm (3.5-5.7) LVDs 4.06 cm (3.5-5.7) IVSd 1.20 cm (0.6-1.1) PWd 0.67 cm (0.6-1.1) EF (Teich) 41.20% FS 20.20% EDV (Teich) 123.20 mL ESV (Teich) 72.50 mL Aortic Valve AO Peak GR. 3.00 mmHg Pulmonary Valve PV Peak Velocity 64.0 (50-150 cm/s) Tricuspid Valve TR P. Velocity 234.00 cm/s RAP Estimate 10.00 mmHg RVSP 32.00 mmHg Left Ventricle The left ventricle is normal size. Left ventricular systolic function is moderate to severely decreased. There is marked increase in LV wall thickness. IVSD is 1.4 cm. There is moderate to severe global hypokinesis. Regional wall motion is difficult to evaluate due to technically difficult study. Grade 2 diastolic dysfunction is present. LVEF is 30%. Right Ventricle Right ventricle is mild to moderately dilated. Right ventricle is mildly hypokinetic. Atria Left atrium is moderately dilated. The right atrium size is normal. Aortic Valve Aortic valve is mildly thickened. There is no aortic valvular stenosis. Mild aortic regurgitation is present. Mitral Valve The mitral valve leaflets are mildly thickened. No evidence of mitral valve stenosis. Mild mitral regurgitation. Tricuspid Valve The tricuspid valve leaflets are thin and pliable. Mild to moderate tricuspid regurgitation. RVSP is 35-40 mmHg. Pulmonic Valve The pulmonic valve is not well-visualized. Great Vessels The aortic root is not well-visualized. The IVC is dilated and collapses < 50% with respirophasic variation. RA pressure is estimated at 15 mmHg. Pericardium There is no pericardial effusion. An epicardial fat pad is noted. Other Information Study Quality: Technically Difficult Conclusion Technically difficult study due to poor acoustic windows. Moderate to severe reduction in LV systolic function (LVEF 30%). Marked increase in LV wall thickness. IVSD 1.4 cm. Mild to moderate RV dilation with mild reduction in RV function. LA dilation. Mild to moderate TR. Mild MR, mild AI. Electronically signed by : Marlena Rodriguez MD 08/10/2024 11:26:46
[2024-08-09 07:01] LABS: Alanine Aminotransferase 188 U/L (12-78); Albumin/Globulin Ratio 1.6 (1.1-1.8); Alkaline Phosphatase 41 U/L (38-126); Anion Gap 9.2 mEq/L (5-15); Aspartate Amino Transferase 142 U/L (14-36); Bilirubin,Total 1.2 mg/dl (0.2-1.3); Blood Urea Nitrogen 25 mg/dl (7-17); Calcium 9.2 mg/dl (8.4-10.2); Carbon Dioxide 23 mmol/L (22.0-30.0); Creatinine Clearance Estimated 33 mL/min (50-200); Estimated Glomerular Filt Rate 54 ml/min (>60); GFR (African American) 65 ML/MIN (>60); Globulin 2.4 g/dL (1.3-3.2); Glucose 112 mg/dl (74-100); Magnesium 2.1 mg/dl (1.6-2.3); Total Protein,Serum 6.3 g/dl (6.3-8.2)
[2024-08-09 07:32] LABS: Thyroid Stimulating Hormone 1.73 uIU/mL (0.465-4.68)
[2024-08-09 07:52] LABS: Basophils # 0.1 K/mm3 (0-0.2); Basophils % 1.1 % (0.1-2.0); Eosinophils # 0.1 K/mm3 (0.0-0.4); Eosinophils % 2.1 % (0.1-12.0); Hematocrit 40.5 % (37.0-47.0); Lymphocytes # 1.7 K/mm3 (0.7-4.5); Lymphocytes % 25.7 % (10-50); Mean Corpuscular HGB Conc 34.5 g/dL (31.8-35.4); Mean Corpuscular Hemoglobin 31.1 pg (27.0-31.2); Mean Platelet Volume 8.2 fl (7.4-10.4); Monocytes # 0.4 K/mm3 (0.1-1.0); Monocytes % 5.5 % (1.7-9.3); Neutrophils # 4.4 K/mm3 (1.8-7.8); Neutrophils % 65.5 % (37.0-80.0); Platelet Count 173 K/mm3 (142-424); White Blood Count 6.7 K/mm3 (4.8-10.8)
[2024-08-09] MEDS: BUMETANIDE 1MG/4ML VIAL 1 MG IV (09:08)
[2024-08-09] MEDS: ENOXAPARIN 120MG/0.8ML SYRINGE 105 MG SQ ×2 (11:10→20:44)
--- NOTE | 2024-08-09 11:14 | PC.NURSE ---
Home Medications Meggan Sinclair ?Medication ?Instructions ?Recorded ?Confirmed bupropion HCl 300 mg 24 hr tablet, 300 mg PO HS 11/29/19 08/08/24 extended release levothyroxine 50 mcg tablet 50 mcg PO DAILY 11/29/19 08/08/24 potassium chloride 20 mEq 40 meq PO BID 11/29/19 08/08/24 tablet,extended release(part/cryst) aspirin 81 mg tablet,delayed 81 mg PO DAILY 08/08/24 08/08/24 release losartan 50 mg-hydrochlorothiazide 1 tab PO HS 08/08/24 08/08/24 12.5 mg tablet
--- NOTE | 2024-08-09 11:17 | P.CONCA_ITS ---
History of Present Illness History of Present Illness Consult date: 08/09/24 Requesting physician: Jeremy Hunter Consult reason: shortness of breath Chief complaint: SOA History of present illness: This is a 74-year-old female who presented to the emergency department with complaints of shortness of breath, diaphoresis and severe weakness. The patient states her symptoms started last Friday where she felt significantly weak while shopping with her . She had to be taken to the car to rest. She states that she felt better the next day but by Friday and her symptoms returned. She states that she is so short of breath that she can hardly walk around her house. She denied any chest pain or pressure. She denied any palpitations or racing of the heart. She states that her shortness of breath was associated with bilateral lower extremity edema as well. The patient reports seeing Dr. Araujo at [facility] but has never been diagnosed with atrial fibrillation or coronary disease. She states that she had a TIA approximately 1 year ago and has been seeing cardiology since that time. She does have a history of breast cancer treated with radiation and chemotherapy in 2019. When the patient went to the hospital she was found to be in atrial fibrillation with RVR. Her rate was in the 130-140s. The patient was treated with IV Cardizem, oral metoprolol tartrate and 5 doses of IV metoprolol. The patient got extremely nauseated after being given these medications and became hypotensive. Bedside echocardiogram showed an ejection fraction of 20 to 30%. An amiodarone drip was started and the patient was being set up for cardioversion. Dr. Durbin was contacted and the cardioversion was held because the patient was in cardiogenic shock. She was started on a milrinone dr ip. Her vital signs did improve. This morning she is feeling much better than she was. She remains on an amiodarone drip and milrinone drip. She remains in atrial fibrillation with a heart rate around 130 bpm this morning. [facility] Disclaimer: The information contained in this section may have been updated after the patient was seen, as this information can be updated by other users. Medical History (Updated 08/09/24 @ 11:28 by Samantha Henao APRN) LV dysfunction Cardiomyopathy Elevated liver enzymes HFrEF (heart failure with reduced ejection fraction) Cardiogenic shock Steel plate in left arm History of transient ischemic attack (TIA) Osteoarthritis Hypothyroid Sleep apnea Hyperlipidemia Hypertension Surgical History History of lumpectomy of left breast Social History Smoking Status: Never smoker alcohol intake: never current occupational status: retired Travel in the last 8 weeks: None Review of Systems Review of Systems Review of systems:: pertinent systems reviewed and negative unless documented below Constitutional Constitutional: Reports system reviewed and no additional complaints, except as documented, Reports fatigue, Reports lethargy and Reports weakness Eyes Eyes: Reports system reviewed and no additional complaints, except as documented ENT Ears, Nose, Mouth, and Throat: Reports system reviewed and no additional complaints, except as documented *Cardiovascular Cardiovascular: Reports system reviewed and no additional complaints, except as documented, Denies chest pain, Reports diaphoresis, Reports dyspnea, Reports dyspnea on exertion and Reports orthopnea *Respiratory Respiratory: Reports system reviewed and no additional complaints, except as documented, Reports dyspnea and Reports dyspnea on exertion *Gastrointestinal Gastrointestinal: Reports system reviewed and no additional complaints, except as documented and Reports nausea *Genitourinary Genitourinary: Reports system reviewed and no additional complaints, except as documented *Musculoskeletal Musculoskeletal: Reports system reviewed and no additional complaints, except as documented Integumentary/Breasts Skin/Breast: Reports system reviewed and no additional complaints, except as documented *Neurologic Neurologic: Reports system reviewed and no additional complaints, except as documented, Reports as per HPI and Reports weakness Psychiatric Psychiatric: Reports system reviewed and no additional complaints, except as documented Endocrine Endocrine: Reports system reviewed and no additional complaints, except as documented and Reports fatigue Hematologic/Lymphatic Hematologic/Lymphatic: Reports system reviewed and no additional complaints, except as documented Allergic/Immunologic Allergic/Immunologic: Reports system reviewed and no additional complaints, except as documented Exam Data for Last 24 hours Vital signs and Labs for Last 24 Hours: Temp Pulse Resp BP Pulse Ox O2 Del Method O2 Flow Rate 98.2 F 117 H 24 130/72 96 Nasal Cannula 3 08/08/24 15:42 08/09/24 10:00 08/09/24 10:00 08/09/24 10:00 08/09/24 10:00 08/09/24 10:00 08/09/24 10:00 FiO2 32 08/08/24 20:40 Laboratory Results - last 24 hr 08/08/24 12:30: Troponin I 0.04 H 08/08/24 19:00: Sodium 139, Potassium 5.1 D, Chloride 110 H, Carbon Dioxide 19 L, Anion Gap 15.1 H, BUN 23 H, Creatinine 0.90, Estimated Creat Clear 33, Estimated GFR 61, Est GFR ( Amer) 74, Glucose 97 D, Calcium 9.2, Mag nesium 1.9, Total Bilirubin 1.7 H, AST 189 H D, ALT 195 H D, Alkaline Phosphatase 30 L, Total Protein 7.1, Albumin 4.2, Globulin 2.9, Albumin/Globulin Ratio 1.4 08/09/24 06:25: Sodium 138, Potassium 5.2 H, Chloride 111 H, Carbon Dioxide 23, Anion Gap 9.2, BUN 25 H, Creatinine 1.00, Estimated Creat Clear 33, Estimated GFR 54 L, Est GFR ( Amer) 65, Glucose 112 H, Calcium 9.2, Magnesium 2.1 D, Total Bilirubin 1.2, AST 142 H, ALT 188 H, Alkaline Phosphatase 41, Total Protein 6.3, Albumin 3.9, Globulin 2.4, Albumin/Globulin Ratio 1.6, TSH 1.73 08/09/24 07:35: WBC 6.7, RBC 4.50, Hgb 14.0, Hct 40.5, MCV 90.0, MCH 31.1, MCHC 34.5, RDW 14.0, Plt Count 173, MPV 8.2, Neut % (Auto) 65.5, Lymph % (Auto) 25.7, [place] % (Auto) 5.5, Eos % (Auto) 2.1, Baso % (Auto) 1.1, Neut # (Auto) 4.4, Lymph # (Auto) 1.7, [place] # (Auto) 0.4, Eos # (Auto) 0.1, Baso # (Auto) 0.1 I & O for Last 24 hours: Intake & Output 08/06/24 08/07/24 08/08/24 08/09/24 23:59 23:59 23:59 23:59 Intake Total 979.117 / 1179.117 833.955 / 833.955 Output Total 100 / 100 Balance 879.117 / 1079.117 833.955 / 833.955 Weight 231 lb 4.8 oz 233 lb 4.8 oz Constitutional Constitutional: no acute distress and morbidly obese *Routine HEENT Exam Head: Present normocephalic and atraumatic ENT: Present mucous membranes moist *Routine Neck Exam Neck: Present supple, full ROM and normal carotid upstroke; Absent JVD, carotid bruit or lymphadenopathy *Routine Respiratory Exam Respiratory: Present CTA bilaterally, normal respiratory effort, able to speak in complete sentences and symmetric chest movement *Routine Cardiovascular Exam Cardiovascular: Present Normal S1, Normal S2, tachycardia and irregularly irregular; Absent murmur or gallop *Routine Abdominal Exam Abdominal: Present soft and normoactive bowel sounds; Absent tenderness, distended or organomegaly *Routine Extremities Exam Extremities: Present edema, full ROM, pulses intact and normal capillary refill; Absent cyanosis or clubbing *Routine Skin Exam Skin: Present intact and warm; Absent erythema *Routine Neurological Exam Neurological: Present alert, oriented X3 and CN II-XII intact; Absent sensory deficit or motor deficit Routine Psychiatric Exam Psychiatric: Present normal affect Meds Home Medications and Allergies Home Medications ?Medication ?Instructions ?Recorded ?Confirmed ?Type bupropion HCl 300 mg 24 hr tablet, 300 mg PO HS 11/29/19 08/08/24 History extended release levothyroxine 50 mcg tablet 50 mcg PO DAILY 11/29/19 08/08/24 History potassium chloride 20 mEq 40 meq PO BID 11/29/19 08/08/24 History tablet,extended release(part/cryst) aspirin 81 mg tablet,delayed 81 mg PO DAILY 08/08/24 08/08/24 History release losartan 50 mg-hydrochlorothiazide 1 tab PO HS 08/08/24 08/08/24 History 12.5 mg tablet New Prescriptions to Start Prescriptions: Allergies Allergy/AdvReac Type Severity Reaction Status Date / Time silver Allergy Verified 12/14/21 12:21 [From [employer]] Assessment and Plan *Assessment and plan (1) Cardiogenic shock: Status: Acute Category: Medical Code(s): R57.0 - Cardiogenic shock (2) HFrEF (heart failure with reduced ejection fraction): Status: Acute Category: Medical Code(s): I50.20 - Unspecified systolic (congestive) heart failure (3) Atrial fibrillation with RVR: Status: Acute Category: Medical Code(s): I48.91 - Unspecified atrial fibrillation (4) Pleural effusion: Status: Acute Category: Medical Code(s): J90 - Pleural effusion, not elsewhere classified (5) Hypertension: Status: Acute Qualifiers: Hypertension type: primary hypertension Qualified Code(s): I10 - Essential (primary) hypertension Category: Medical Code(s): I10 - Essential (primary) hypertension (6) Elevated liver enzymes: Status: Acute Category: Medical Code(s): R74.8 - Abnormal levels of other serum enzymes (7) Cardiomyopathy: Status: Acute Qualifiers: Cardiomyopathy type: other Qualified Code(s): I42.8 - Other cardiomyopathies Category: Medical Code(s): I42.9 - Cardiomyopathy, unspecified (8) LV dysfunction: Status: Acute Category: Medical Code(s): I51.9 - Heart disease, unspecified Plan Plan: 1. Patient was admitted to the hospital with atrial fibrillation with RVR. She was initially treated with IV diltiazem, oral metoprolol and IV metoprolol. She was subsequently started on amiodarone drip and remains on an amiodarone drip this morning. She remains in atrial fibrillation and RVR this morning with a rate around 130s. Will plan to proceed with ANKUR and cardioversion today due to her atrial fibrillation with RVR. 2. The patient and her family have been educated on the risk and benefits of proceeding with ANKUR and cardioversion. The patient and family verbalized understanding and are agreeable in proceeding with the procedure. 3. As this was her the patient does have an elevated troponin as well as new onset cardiomyopathy and HFrEF. Her LV function is approximately 20 to 30%. Will plan to proceed with left cardiac catheterization today to evaluate for cor onary artery disease to see if her cardiomyopathy and LV dysfunction are ischemically mediated. Will use right radial access. 4. The patient and family have been educated risk and benefits of proceeding with left cardiac catheterization. The patient verbalized understanding and is agreeable in proceeding with the procedure. 5. She will be n.p.o. preparation for ANKUR and cardioversion and left cardiac catheterization. 6. Official echocardiogram is currently pending. 7. Continue Lovenox for anticoagulation. 8. Following her ANKUR/cardioversion and left cardiac catheterization we will consider starting a beta-carolina at that time since her cardiogenic shock has improved. 9. Once the patient is more stable we will also add Entresto, Jardiance and spironolactone for her HFrEF. 10. Continue IV Bumex and milrinone for diuresis. 11. Continue IV amiodarone for atrial fibrillation. 12. Creatinine is currently stable. 13. Elevated liver enzymes is most likely from her cardiogenic shock. 14. Further recommendations were made pending the patient's response to treatment the results of her ANKUR, cardioversion and left cardiac catheterization today. Thank you for the opportunity to help participate in the care of this patient. All recommendations and orders are per Dr. Rodriguez.
--- NOTE | 2024-08-09 11:43 | EXP.ACUTE.PN ---
Subjective *Date: 08/09/24 *Time: 23:27 Interval history: Feeling better this morning. Has done well overnight on milrinone and amiodarone drips. Remains in A-fib but blood pressure improved. Perfusing well. No nausea or vomiting overnight. Necessitating oxygen overnight on CPAP. Denies chest pain. Medical Exam Vital signs and Labs for Last 24 Hours: Vital Signs Temp Pulse Pulse Resp BP Pulse Ox O2 Del Method 08/09/24 11:00 123 H 18 93/58 L 95 Nasal Cannula 08/09/24 11:00 Nasal Cannula 08/09/24 10:00 117 H 24 130/72 96 Nasal Cannula 08/09/24 09:00 112 H 18 145/78 H 93 L Nasal Cannula 08/09/24 09:00 Nasal Cannula 08/09/24 08:00 130 H 08/09/24 08:00 94 L Nasal Cannula 08/09/24 08:00 116 H 16 130/66 93 L Nasal Cannula 08/09/24 07:00 85 15 130/73 92 L Nasal Cannula 08/09/24 06:54 Nasal Cannula 08/09/24 06:00 123 H 154/91 H 98 CPAP 08/09/24 05:00 91 H 16 125/68 92 L CPAP 08/09/24 05:00 CPAP 08/09/24 04:00 120 H 08/09/24 04:00 CPAP 08/09/24 04:00 100 H 14 129/90 CPAP 08/09/24 03:00 CPAP 08/09/24 03:00 72 19 100/61 L 93 L CPAP 08/09/24 02:00 92 H 14 106/68 L 90 L CPAP 08/09/24 01:00 CPAP 08/09/24 01:00 105 H 143/84 H 94 L Nasal Cannula 08/09/24 00:00 119 H 08/09/24 00:00 108 H 23 119/89 94 L Nasal Cannula 08/08/24 23:00 CPAP 08/08/24 23:00 100 H 128/84 97 CPAP 08/08/24 22:00 102 H 37 H 139/72 98 CPAP 08/08/24 21:00 112 H 22 96/79 L 96 Nasal Cannula 08/08/24 21:00 Nasal Cannula 08/08/24 20:40 Nasal Cannula 08/08/24 20:00 130 H 08/08/24 20:00 3 L Nasal Cannula 08/08/24 20:00 117 H 15 122/73 97 Nasal Cannula 08/08/24 19:00 125 H 18 113/71 94 L Nasal Cannula 08/08/24 19:00 Nasal Cannula 08/08/24 18:23 130 H 116/40 L 95 Nasal Cannula 08/08/24 18:00 127 H 70/33 L 94 L Nasal Cannula 08/08/24 17:45 119 H 70/31 L 08/08/24 17:30 120 H 139/76 08/08/24 17:15 123 H 98/78 L 08/08/24 17:00 Nasal Cannula 08/08/24 17:00 128 H 98/48 L 94 L Room Air 08/08/24 16:00 120 H 08/08/24 15:42 98.2 F 08/08/24 15:00 Room Air 08/08/24 14:00 96 H 24 119/64 94 L Room Air 08/08/24 13:00 Room Air 08/08/24 12:00 130 H 08/08/24 12:00 97.8 F 72 16 104/74 L 90 L Room Air O2 Flow Rate FiO2 08/09/24 11:00 2 08/09/24 11:00 2 08/09/24 10:00 3 08/09/24 09:00 3 08/09/24 09:00 3 08/09/24 08:00 08/09/24 08:00 08/09/24 08:00 3 08/09/24 07:00 3 08/09/24 06:54 3 08/09/24 06:00 3 08/09/24 05:00 3 08/09/24 05:00 3 08/09/24 04:00 08/09/24 04:00 3 08/09/24 04:00 3 08/09/24 03:00 08/09/24 03:00 08/09/24 02:00 08/09/24 01:00 08/09/24 01:00 08/09/24 00:00 08/09/24 00:00 3 08/08/24 23:00 08/08/24 23:00 08/08/24 22:00 08/08/24 21:00 3 08/08/24 21:00 3 08/08/24 20:40 3 32 08/08/24 20:00 08/08/24 20:00 08/08/24 20:00 2 08/08/24 19:00 08/08/24 19:00 2 08/08/24 18:23 2 08/08/24 18:00 2 08/08/24 17:45 08/08/24 17:30 08/08/24 17:15 08/08/24 17:00 2 08/08/24 17:00 08/08/24 16:00 08/08/24 15:42 08/08/24 15:00 08/08/24 14:00 08/08/24 13:00 08/08/24 12:00 08/08/24 12:00 Intake and Output 08/08/24 08/09/24 08/09/24 23:59 07:59 15:59 Intake Total 229.117 / 1179.117 239.955 / 833.955 594 / 833.955 Output Total 100 / 100 0 / 0 Balance 129.117 / 1079.117 239.955 / 833.955 594 / 833.955 Intake: Intake, Oral Amount 150 / 150 Intake, Total IV Amount 229.117 / 279.117 89.955 / 683.955 594 / 683.955 Amiodarone HCl 900 mg In 512 / 512 Dextrose 5 % in Water 500 ml @ 1 MG/MIN 34.533 mls/hr IV . Q15H1M [facility] Rx#:[id number] Magnesium Sulfate in Water 2 gm 50 / 50 In 50 ml @ 50 mls/hr IV ONCE ONE Rx#:[id number] Milrinone Lactate 20 mg In 0.9 82 / 82 % Sodium Chloride 80 ml @ 0.125 MCG/KG/MIN 3.934 mls/hr IV . Q24H [facility] Rx#:[id number] Output: Output, Urine Amount 100 / 100 0 / 0 Other: Number of Unmeasured Voids 1 Number of Bowel Movements 1 1 Weight 105.823 kg Patient Weight 08/09/24 23:59 Weight 105.823 kg Laboratory Results - last 24 hr 08/08/24 12:30: Troponin I 0.04 H 08/08/24 19:00: Sodium 139, Potassium 5.1 D, Chloride 110 H, Carbon Dioxide 19 L, Anion Gap 15.1 H, BUN 23 H, Creatinine 0.90, Estimated Creat Clear 33, Estimated GFR 61, Est GFR ( Amer) 74, Glucose 97 D, Calcium 9.2, Magnesium 1.9, Total Bilirubin 1.7 H, AST 189 H D, ALT 195 H D, Alkaline Phosphatase 30 L, Total Protein 7.1, Albumin 4.2, Globulin 2.9, Albumin/Globulin Ratio 1.4 08/09/24 06:25: Sodium 138, Potassium 5.2 H, Chloride 111 H, Carbon Dioxide 23, Anion Gap 9.2, BUN 25 H, Creatinine 1.00, Estimated Creat Clear 33, Estimated GFR 54 L, Est GFR ( Amer) 65, Glucose 112 H, Calcium 9.2, Magnesium 2.1 D, Total Bilirubin 1.2, AST 142 H, ALT 188 H, Alkaline Phosphatase 41, Total Protein 6.3, Albumin 3.9, Globulin 2.4, Albumin/Globulin Ratio 1.6, TSH 1.73 08/09/24 07:35: WBC 6.7, RBC 4.50, Hgb 14.0, Hct 40.5, MCV 90.0, MCH 31.1, MCHC 34.5, RDW 14.0, Plt Count 173, MPV 8.2, Neut % (Auto) 65.5, Lymph % (Auto) 25.7, [place] % (Auto) 5.5, Eos % (Auto) 2.1, Baso % (Auto) 1.1, Neut # (Auto) 4.4, Lymph # (Auto) 1.7, [place] # (Auto) 0.4, Eos # (Auto) 0.1, Baso # (Auto) 0.1 I & O for Labs for Last 24 Hours: Intake & Output 08/06/24 08/07/24 08/08/24 08/09/24 23:59 23:59 23:59 23:59 Intake Total 979.117 / 1179.117 833.955 / 833.955 Output Total 100 / 100 0 / 0 Balance 879.117 / 1079.117 833.955 / 833.955 Weight 104.916 kg 105.823 kg Constitutional: Present no acute distress, morbidly obese, chronically ill appearing and cooperative Head: Present atraumatic and normocephalic ENT: Present normal exam Respiratory: Present normal respiratory effort; Absent rhonchi, wheezes or crackles Cardiac: Present Tachycardia Comment:: Irregularly irregular GI: Present soft and normal bowel sounds; Absent distention or tenderness Extremities: Present normal inspection and full ROM; Absent tenderness Skin: Present intact; Absent erythema Neuro: Present Grossly Intact, alert, awake, oriented x 3 and moves all extremities Assessment and Plan *Assessment and plan (1) Cardiogenic shock: Status: Acute Category: Medical Code(s): R57.0 - Cardiogenic shock (2) HFrEF (heart failure with reduced ejection fraction): Status: Acute Category: Medical Code(s): I50.20 - Unspecified systolic (congestive) heart failure (3) Atrial fibrillation with RVR: Status: Acute Category: Medical Code(s): I48.91 - Unspecified atrial fibrillation (4) Pleural effusion: Status: Acute Category: Medical Code(s): J90 - Pleural effusion, not elsewhere classified (5) Hypertension: Status: Acute Qualifiers: Hypertension type: primary hypertension Qualified Code(s): I10 - Essential (primary) hypertension Category: Medical Code(s): I10 - Essential (primary) hypertension (6) Elevated liver enzymes: Status: Acute Category: Medical Code(s): R74.8 - Abnormal levels of other serum enzymes (7) Cardiomyopathy: Status: Acute Qualifiers: Cardiomyopathy type: other Qualified Code(s): I42.8 - Other cardiomyopathies Category: Medical Code(s): I42.9 - Cardiomyopathy, unspecified (8) LV dysfunction: Status: Acute Category: Medical Code(s): I51.9 - Heart disease, unspecified (9) Morbid obesity with body mass index (BMI) of 40.0 to 44.9 in adult: Status: Chronic Category: Medical Code(s): E66.01 - Morbid (severe) obesity due to excess calories; Z68.41 - Body mass index [BMI] 40.0-44.9, adult (10) Sleep apnea: Problem Comment: Does wear a cpap Status: Acute Category: Medical Code(s): G47.30 - Sleep apnea, unspecified Plan 74-year-old female with history of hypertension, obesity, hypothyroid, and anxiety. Presented to the ER with a week of shortness of breath. In the ER, found to be in A-fib with RVR. Case discussed with ER physician, request admission for treatment of A-fib and cardiology eval. Medicine agreed to admit for further management. Had an episode yesterday with worsening hypotension tachyarrhythmia with A-fib RVR. Necessitated addition of IV amiodarone and milrinone drip. Did well overnight. Continues to require ICU level of care with milrinone drip. Cardiology evaluating today. Improved hemodynamics this morning. Continues to require inpatient management. Problems addressed as follows: Cardiogenic shock A-fib with RVR Acute heart failure with reduced ejection fraction -Patient became hypotensive yesterday. Was initiated on amiodarone drip. Has finished bolus and load. Will transition to oral amiodarone for 100 mg 3 times a day. -Remains in A-fib with RVR. Cardiology evaluated today, discussed case, will plan for left heart cath with ANKUR and possible cardioversion. - Echocardiogram obtained, formal read pending. EF decreased at 20-30% on prelim -Continue Lovenox 1 mg/kg twice daily for anticoagulation. Will transition to oral anticoagulation after echo -Reviewed records from [facility], has not had any echo was performed in the past. No previous treatment for A-fib. - Labs show normal kidney function with BUN 25, creatinine 1. Potassium elevated at 5.2. Discontinue oral replacement. Liver enzymes mildly elevated with bilirubin 1.2, AST 142, ALT 188. -Improved blood pressure this morning at 130/73. -Repeat CBC, CMP, magnesium ordered for the morning. -Discontinue milrinone drip. Will consider beta-carolina addition pending heart cath findings and response to ANKUR/cardioversion. Hypokalemia: -Resolved, elevated this morning. Holding oral replacement Anxiety: Continue Wellbutrin 300mg daily Hypothyroid: continue home levothyroxine 50mcg daily, tsh 1.7 History of sleep apnea but only wears her CPAP mask at night, she says she will ask her to bring her CPAP and she knows if it is not possible that we would then be able to provide her CPAP here, Morbid obesity: complicates all aspects of her care Full code Lovenox 1mg/kg BID Cardiac diet
--- NOTE | 2024-08-09 11:48 | IR_ITS ---
APPROVED REPORT Patient Location: Inpatient District Director: Raza Scott, RT (R) PROCEDURES Selective coronary angiogram INDICATION New onset cardiomyopathy systolic ejection fraction 20%, Atrial fibrillation Informed consent was obtained prior to the procedure. COMPLICATIONS None Estimated Blood Loss: Less than 10 mls TECHNIQUE One percent lidocaine used to anesthetize the right anterior aspect of the wrist. The right radial artery was accessed via the Seldinger technique. A 6 Andor[place] sheath was placed in the right radial artery. 2.5 mg of Verapamil, 800 mcg of nitroglycerin, 1mg Lidocaine and 5000 U Heparin were given through the arterial sheath. The papa catheter was also used to perform selective coronary angiogram. At the end of the procedure the sheath was removed good hemostasis was achieved using Traclet band, patient was transferred to the postop holding area in stable condition. ANGIOGRAPHIC RESULTS The left main artery Normal The left anterior descending artery Normal The circumflex artery Normal The right coronary artery Normal The SANCHEZ ventriculogram reveals Not performed The left ventricular end-diastolic pressure Not measured IMPRESSION Normal coronary arteries PLAN 1. Workup for infiltrative disease 2. Standard therapy for systolic heart failure 3. Anticoagulation 4. Continue amiodarone to help maintain sinus rhythm Electronically signed by : Tony Durbin MD 08/09/2024 13:56:19
--- NOTE | 2024-08-09 12:01 | CA_ITS ---
APPROVED REPORT EXAM: Comprehensive 2D, Doppler, and color-flow Echocardiogram [employer]er: Ivania ThomasonBETSEY Ht: 4 ft 11 in Wt: 233lbs BSA: 1.97 BP: 123/75 mmHg Indications: A-FIB WITH CARDIOVERSION,SOA,HX BREAT CA Procedure After obtaining informed consent, patient underwent transesophageal echo in the [employer]. Type of Sedation : Conscious sedation Sedation start time: 1:00 PM Case end Time: 1:15 PM Versed () Fentanyl () Transesophageal probe was inserted and advanced into esophagus without difficulty by Dr. Gabe Rodriguez. The ANKUR was performed without complications. Synchronized Cardioversion acheived with 200 Joules after 1 attempt(s). Rhythm following Synchronized Cardioversion: Normal Sinus Rhythm Throughout the procedure, the blood pressure, pulse oximetry, cardiac rhythm, and rate were monitored. The patient tolerated the procedure without adverse effects. Recovery from conscious sedation was uneventful and vital signs were stable. Left Ventricle The left ventricle is normal size. Left ventricular systolic function is moderate to severely decreased. There is marked increase in LV wall thickness. IVSD is 1.4 cm. There is moderate to severe global hypokinesis present. The septum is asynchronous. LVEF is 30%. Right Ventricle Right ventricle is mildly dilated. Right ventricle is mildly hypokinetic. Atria The left atrium is dilated. No thrombus is visualized in the left atrium or appendage. The right atrium size is normal. Lipomatus atrial septal hypertrophy is present. Interatrial septum is intact without evidence of ASD or PFO. Aortic Valve The aortic valve is mildly thickened. Mild aortic regurgitation. Mitral Valve The mitral valve leaflets are mildly thickened. No evidence of mitral valve stenosis. Mild to moderate mitral regurgitation. Tricuspid Valve The tricuspid valve leaflets are thin and pliable. Mild to moderate tricuspid regurgitation. RVSP is 20 mmHg plus RA pressure. Pulmonic Valve The pulmonary valve is normal in structure. Trace pulmonic regurgitation. Great Vessels The aortic root is normal in size. The ascending aorta is normal in size. Pericardium There is no pericardial effusion. Other Information Study Quality: Technically Difficult Conclusion Moderate to severe reduction in LV systolic function (LVEF 30%). Marked increase in LV wall thickness. IVSd 1.4 cm. Asynchronous septum. Mildly dilated RV with mild reduction in RV function. Biatrial dilation. Mild to moderate MR, mild to moderate TR. Mild AI. No evidence of LA or ARELY thrombus. In the setting of reduced LVEF, marked increased LV wall thickness, biatrial dilatation, and conduction abnormalities, further outpatient evaluation for infiltrative cardiomyopathy is suggested with cardiac MRI (amyloidosis protocol), PYP nuclear scan, and amyloidosis lab testing. Once the patient was found to have no LA or ARELY thrombus, she underwent LHC first to evaluate for coronary patency. Following LHC, she underwent 1 DCCV with 200 J, after which she converted to normal sinus rhythm. Electronically signed by : Marlena Rodriguez MD 08/10/2024 00:11:54
[2024-08-09 12:07] LABS: Chloride 110 mmol/L (98-107); Potassium 3.8 mmoL/L (3.5-5.1); Sodium 138 mmol/L (136-145)
[2024-08-09 12:10] LABS: Anion Gap 12.8 mEq/L (5-15); Blood Urea Nitrogen 24 mg/dl (7-17); Calcium 9.2 mg/dl (8.4-10.2); Carbon Dioxide 19 mmol/L (22.0-30.0); Creatinine Clearance Estimated 33 mL/min (50-200); Estimated Glomerular Filt Rate 54 ml/min (>60); GFR (African American) 65 ML/MIN (>60); Glucose 124 mg/dl (74-100)
[2024-08-09] MEDS: FENTANYL 100MCG/2ML VIAL 25 MCG IV (13:13)
[2024-08-09] MEDS: MIDAZOLAM HCL 1MG/1ML 5ML VIAL 1 MG IV (13:14)
[2024-08-09] MEDS: diphenhydrAMINE 50MG/ML VIAL 50 MG IV (13:29)
[2024-08-09] MEDS: HEPARIN 1,000 UNITS/500ML NS (CATH LAB) 3000 UNIT IV (13:30)
[2024-08-09] MEDS: 0.9 % SODIUM CHLORIDE 500 ML 25 ML IV (13:42)
[2024-08-09] MEDS: HEPARIN 1,000 UNITS/ML 10ML VIAL (CATH LAB) 10000 UNIT IV (13:43)
[2024-08-09] MEDS: LIDOCAINE 1% 10ML MDV 20 ML IJ (13:44)
[2024-08-09] MEDS: VERAPAMIL 2.5MG/ML 2ML VIAL 2.5 MG IV (13:44)
[2024-08-09] MEDS: IOPAMIDOL-370 (76%);100ML BOTTLE 90 ML IV (14:21)
[2024-08-09] MEDS: AMIODARONE 200MG TABLET 400 MG PO ×2 (14:37→20:43)
[2024-08-09] MEDS: BUPROPION 300 MG 1 EACH PO (20:42)
[2024-08-09] MEDS: PANTOPRAZOLE 40MG TABLET 40 MG PO (20:43)
--- NOTE | 2024-08-09 22:22 | PC.NURSE ---
Handoff report given to RAFAEL Desai
[2024-08-10] VITALS (7 sets, daily range): BP systolic 117–144; BP diastolic 56–91; PULSE 50–73; RESP 18–20; TEMP 36.4–37.1; O2SAT 92–99; BMI 45.8
--- NOTE | 2024-08-10 04:47 | PC.NURSE ---
pt is alert and oriented x4 and curently tolerating her CPAP with 3L o2 well at this time. Pt has had no acute changes. Pt denies needs and pain.
[2024-08-10 05:09] LABS: HCV Ab Non Reactive (Non Reactive)
[2024-08-10] MEDS: *PAT OWN MED* LEVOTHYROXINE 50MCG (0.05MG) TAB 50 MCG PO (06:30)
--- NOTE | 2024-08-10 07:47 | HMH.PTEV ---
Physical Therapy Evaluation Rehab PT IP Evaluation Start: 08/09/24 18:22 Freq: ONCE Status: Active Protocol: Document 08/10/24 07:41 EDITH (Rec: 08/10/24 07:47 EDITH [id number]) Subjective/History History History Per H&P: This 74-year-old female, that is obese. Comes into the emergency room after not feeling well for the last week., She described last Friday feeling weak while shopping had to come get the car and take her home felt bad the next day got a little better Friday and then symptoms returned on , she stated she could not feel her heart beating rapidly and does not feel it beating rapidly now. 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 Araujo. She noted she is supposed to be on cholesterol medication but has been unable to take that and not taken it since February, she reports that she has suffered no trauma or illnesses within the last 30 days., Notable history breast cancer treated with radiation and chemotherapy in 2018, being on thyroid medication she also noted approximately a year ago had a TIA, was seen by her 2 year olds preschool teacher after that this symptom has never returned. Only anticoagulation the patient is on is a baby aspirin Patient also noted for being on CPAP on a regular basis for sleeping. Presently not having any chest pain or symptoms. Heart rate after returning to the floor had increased back up into the 140s and other 10 mg of Cardizem IV was given. Subjective Subjective I'm a morning person . Pt pleasantly agreeable to PT eval. Pt reports she lives with her retired in a single-story home with ramped entrance. Pt is usually IND with all mobility. Pt still driving prior to admission. New diagnosis of cancer in past 12 No months? Rehab PT IP Eval Objective Appearance Patient Behavior Appropriate,Cooperative Patient Orientation Person,Situation Difficulty following instructions none Speech Pattern Clear Ambulation Patient Able to Ambulate Yes Ambulation Observation IP General Gait Pattern Observation Wide Based Gait Ambulation Distance (feet) 30 Ambulation Assistive Device None Ambulation Ability Supervision/Stand by Balance Ability to Arise Able, w/o using arms Sitting Balance Steady, safe Standing Balance Steady, wide stance Dynamic Sitting Balance Ability Good Dynamic Standing Balance Ability Good Transfers Bed Transfer Ability Supervision/Stand by Sit to Stand Bed Transfer Ability Supervision/Stand by Rehab PT IP prob,goals,plan Problems Date of Evaluation: 08/10/24 Rehab Potential Rehab Potential Innapropriate for Skilled Therapy Discharge Plan PT Discharge Plan Pt safe to d/c home when deemed medically necessary d/t current level of mobility, home set-up, and family support. Pt not appropriate for skilled acute care PT at this time d/t pt?s mobility being at baseline/IND. Eval Complexity Eval Charge Codes 45419 - Moderate Complexity PHYSICIAN CERTIFICATION: I certify the specified therapy services for Meggan Sinclair are required, authorized, and reviewed every 30 days.
[2024-08-10 08:27] LABS: Basophils # 0.1 K/mm3 (0-0.2); Basophils % 1.1 % (0.1-2.0); Eosinophils # 0.1 K/mm3 (0.0-0.4); Eosinophils % 2.2 % (0.1-12.0); Hematocrit 39.6 % (37.0-47.0); Hemoglobin 13.4 g/dL (12.2-16.2); Lymphocytes # 1.4 K/mm3 (0.7-4.5); Mean Corpuscular Hemoglobin 30.7 pg (27.0-31.2); Mean Corpuscular Volume 90.4 fl (81-99); Mean Platelet Volume 8.2 fl (7.4-10.4); Monocytes # 0.4 K/mm3 (0.1-1.0); Monocytes % 6.2 % (1.7-9.3); Neutrophils % 67.5 % (37.0-80.0); Platelet Count 142 K/mm3 (142-424); Red Blood Count 4.37 M/mm3 (4.20-5.40); Red Cell Distribution Width 14.4 % (11.5-17.5)
[2024-08-10] MEDS: BUMETANIDE 1MG/4ML VIAL 1 MG IV (08:39)
[2024-08-10] MEDS: AMIODARONE 200MG TABLET 400 MG PO ×3 (08:39→21:18)
[2024-08-10] MEDS: ENOXAPARIN 120MG/0.8ML SYRINGE 105 MG SQ (08:46)
[2024-08-10 09:05] LABS: Chloride 108 mmol/L (98-107)
[2024-08-10 09:06] LABS: Albumin Level 4.1 g/dl (3.5-5.0); Potassium 3.4 mmoL/L (3.5-5.1); Sodium 139 mmol/L (136-145)
[2024-08-10 09:08] LABS: Alanine Aminotransferase 199 U/L (12-78); Albumin/Globulin Ratio 1.8 (1.1-1.8); Alkaline Phosphatase 45 U/L (38-126); Anion Gap 9.4 mEq/L (5-15); Aspartate Amino Transferase 96 U/L (14-36); Bilirubin,Total 0.9 mg/dl (0.2-1.3); Blood Urea Nitrogen 26 mg/dl (7-17); Carbon Dioxide 25 mmol/L (22.0-30.0); Creatinine Clearance Estimated 33 mL/min (50-200); Estimated Glomerular Filt Rate 54 ml/min (>60); GFR (African American) 65 ML/MIN (>60); Globulin 2.3 g/dL (1.3-3.2); Total Protein,Serum 6.4 g/dl (6.3-8.2)
[2024-08-10 09:09] LABS: Calcium 9.1 mg/dl (8.4-10.2); Glucose 122 mg/dl (74-100); Magnesium 1.8 mg/dl (1.6-2.3)
--- NOTE | 2024-08-10 09:11 | PC.NURSE ---
HAT PLACED IN PT TOILET AND PT EDUCATED ON THE NEED TO MONITOR URINARY OUTPUT. PT VERBALIZED UNDERSTANDING
--- NOTE | 2024-08-10 09:20 | HMH.OTEV ---
OT Inpatient Evaluation Rehab OT IP Evaluation Start: 08/09/24 18:22 Freq: ONCE Status: Active Protocol: Document 08/10/24 09:08 HERMINIOTYRESE (Rec: 08/10/24 09:20 AARON [id number]) Rehab OT IP Assessment Subjective History This 74-year-old female, that is obese. Comes into the emergency room after not feeling well for the last week ., She described last Friday feeling weak while shopping had to come get the car and take her home felt bad the next day got a little better Friday and then symptoms returned on , she stated she could not feel her heart beating rapidly and does not feel it beating rapidly now. 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 Araujo. She noted she is supposed to be on cholesterol medication but has been unable to take that and not taken it since February, she reports that she has suffered no trauma or illnesses within the last 30 days., Notable history breast cancer treated with radiation and chemotherapy in 2018, being on thyroid medication she also noted approximately a year ago had a TIA, was seen by her billing supervisor after that this symptom has never returned. Only anticoagulation the patient is on is a baby aspirin Patient also noted for being on CPAP on a regular basis for sleeping. Presently not having any chest pain or symptoms. Heart rate after returning to the floor had increased back up into the 140s and other 10 mg of Cardizem IV was given. Lives with in 1 story home. Ramp to enter. Independent with ADLs and fx'l mobility. Subjective I can get up. Analysis Patient's bed mobility, transfers and ADLs during initial evaluation. Patient completed all tasks independently except d/d sock/ shoes. will assist with LB drsg at home. Good dynamic standing balance. No LOB noted. Left Patient sitting upright in bed with needs met. Objective Patient Orientation Person,Name,Age,Birthday,Year Right Upper Extremity Gross ROM WFL Left Upper Extremity Gross ROM WFL Bed Mobility bed mobility - supine/sit Assist Level Independent Transfer Training Sit/Stand Transfer Assist Level Independent Chair Transfer Ability Independent Chair Transfer Technique Sit to/from Ambulatory Chair Transfer Assistive Devices Rolling Walker Rehab OT IP prob,goals,plan Problems Date of Evaluation: 08/10/24 Rehab Potential Rehab Potential Innapropriate for Skilled Therapy Discharge Plan OT Discharge Plan Recommend to return home with family. Patient appears to be at baseline. Eval Complexity Eval Charge Codes 16744 - Low Complexity PHYSICIAN CERTIFICATION: I certify the specified therapy services for Meggan Sinclair are required, authorized, and reviewed every 30 days.
[2024-08-10 09:39] LABS: Chol/HDL Ratio 6.2 (1-3.5); Cholesterol 230 mg/dl (140-200); HDL Cholesterol 37 mg/dl (40-60); Triglycerides 216 mg/dl (30-150); VLDL Cholesterol 43 mg/dL (0-40)
[2024-08-10 09:50] LABS: Direct LDL Cholesterol 144.56 mg/dL (100-129)
--- NOTE | 2024-08-10 11:00 | P.PN_ITS ---
Subjective Subjective Date: 08/10/24 Time: 10:00 Principal diagnosis: HFrEF, cardiogenic shock Interval history: This is a 74-year-old white female who was admitted to the hospital with shortness of breath diaphoresis and severe weakness. The patient was initially in cardiogenic shock and started on a milrinone drip and Bumex. She underwent left cardiac catheterization yesterday and found to have normal coronary arteries. Her milrinone drip was stopped and she remained on IV Bumex. She was also in atrial fibrillation with RVR at the time of her admission. Yesterday she underwent ANKUR and cardioversion and maintained sinus rhythm this morning. She states that she is feeling much better. She denies any chest pain or pressure. She denies any racing of the heart. She denies any shortness of breath. She states that her edema has significantly improved. She denies any fever, chills, nausea, vomiting or diarrhea. Exam Data for Last 24 hours Vital signs and Labs for Last 24 Hours: Temp Pulse Resp BP Pulse Ox O2 Del Method O2 Flow Rate 98.3 F 71 18 122/83 92 L Nasal Cannula 2 08/10/24 08:00 08/10/24 08:00 08/10/24 08:00 08/10/24 08:00 08/10/24 08:00 08/10/24 10:57 08/10/24 10:57 FiO2 32 08/08/24 20:40 Laboratory Results - last 24 hr 08/08/24 02:38: Hepatitis C Antibody Non reactive 08/09/24 11:45: Sodium 138, Potassium 3.8 D, Chloride 110 H, Carbon Dioxide 19 L, Anion Gap 12.8, BUN 24 H, Creatinine 1.00, Estimated Creat Clear 33, Estimated GFR 54 L, Est GFR ( Amer) 65, Glucose 124 H, Calcium 9.2 08/10/24 08:20: WBC 6.0, RBC 4.37, Hgb 13.4, Hct 39.6, MCV 90.4, MCH 30.7, MCHC 34.0, RDW 14.4, Plt Count 142, MPV 8.2, Neut % (Auto) 67.5, Lymph % (Auto) 23.0, [place] % (Auto) 6.2, Eos % (Auto) 2.2, Baso % (Auto) 1.1, Neut # (Auto) 4.0, Lymph # (Auto) 1.4, [place] # (Auto) 0.4, Eos # (Auto) 0.1, Baso # (Auto) 0.1, Sodium 139, Potassium 3.4 L, Chloride 108 H, Carbon Dioxide 25, Anion Gap 9.4, BUN 26 H , Creatinine 1.00, Estimated Creat Clear 33, Estimated GFR 54 L, Est GFR ( Amer) 65, Glucose 122 H, Calcium 9.1, Magnesium 1.8 D, Total Bilirubin 0.9, AST 96 H D, ALT 199 H, Alkaline Phosphatase 45, Total Protein 6.4, Albumin 4.1, Globulin 2.3, Albumin/Globulin Ratio 1.8, Triglycerides 216 H, Cholesterol 230 H, LDL Cholesterol Direct 144.56 H, VLDL Cholesterol 43 H, HDL Cholesterol 37 L, Cholesterol/HDL Ratio 6.2 H I & O for Last 24 hours: Intake & Output 08/07/24 08/08/24 08/09/24 08/10/24 23:59 23:59 23:59 23:59 Intake Total 979.117 / 0090.630 7656.213 / 2321.213 500 / 500 Output Total 100 / 100 0 / 0 225 / 225 Balance 879.117 / 4725.955 0289.213 / 2321.213 275 / 275 Weight 231 lb 4.8 oz 233 lb 4.8 oz 233 lb 4.973 oz Narrative: ANKUR shows: Moderate to severe reduction in LV systolic function (LVEF 30%). Marked increase in LV wall thickness. IVSd 1.4 cm. Asynchronous septum. Mildly dilated RV with mild reduction in RV function. Biatrial dilation. Mild to moderate MR, mild to moderate TR. Mild AI. No evidence of LA or ARELY thrombus. In the setting of reduced LVEF, marked increased LV wall thickness, biatrial dilatation, and conduction abnormalities, further outpatient evaluation for infiltrative cardiomyopathy is suggested with cardiac MRI (amyloidosis protocol), PYP nuclear scan, and amyloidosis lab testing. Left cardiac catheterization shows: The left main artery Normal The left anterior descending artery Normal The circumflex artery Normal The right coronary artery Normal The SANCHEZ ventriculogram reveals Not performed The left ventricular end-diastolic pressure Not measured IMPRESSION Normal coronary arteries PLAN 1. Workup for infiltrative disease 2. Standard therapy for systolic heart failure 3. Anticoagulation 4. Continue amiodarone to help maintain sinus rhythm Constitutional Constitutional: no acute distress and morbidly obese *Routine HEENT Exam Head: Present normocephalic and atraumatic ENT: Present mucous membranes moist *Routine Neck Exam Neck: Present supple, full ROM and normal carotid upstroke; Absent JVD, carotid bruit or lymphadenopathy *Routine Respiratory Exam Respiratory: Present CTA bilaterally, normal respiratory effort, able to speak in complete sentences and symmetric chest movement *Routine Cardiovascular Exam Cardiovascular: Present Normal S1, Normal S2, tachycardia and irregularly irregular; Absent murmur or gallop *Routine Abdominal Exam Abdominal: Present soft and normoactive bowel sounds; Absent tenderness, distended or organomegaly *Routine Extremities Exam Extremities: Present full ROM, pulses intact and normal capillary refill; Absent cyanosis, clubbing or edema *Routine Skin Exam Skin: Present intact and warm; Absent erythema *Routine Neurological Exam Neurological: Present alert, oriented X3 and CN II-XII intact; Absent sensory deficit or motor deficit Routine Psychiatric Exam Psychiatric: Present normal affect Progress Note: A&P Assessment and plan (1) Cardiogenic shock: Status: Acute (2) HFrEF (heart failure with reduced ejection fraction): Status: Acute (3) Atrial fibrillation with RVR: Status: Acute (4) Pleural effusion: Status: Acute (5) Hypertension: Status: Acute (6) Elevated liver enzymes: Status: Acute (7) Cardiomyopathy: Status: Acute (8) LV dysfunction: Status: Acute (9) Morbid obesity with body mass index (BMI) of 40.0 to 44.9 in adult: Status: Chronic (10) Sleep apnea: Problem details: Does wear a cpap Status: Acute Assessment and Plan Assessment and Plan for All Diagnoses:: Plan: 1. The patient was admitted to the hospital and found to be in atrial fibrillation with RVR and cardiogenic shock. The patient was initially treated with IV diltiazem and oral and IV metoprolol. She was then started on amiodarone drip. The patient underwent ANKUR yesterday and was scheduled to undergo cardioversion following her left cardiac catheterization but during her left cardiac catheterization when her right coronary artery was engaged she converted to sinus rhythm on her own. Her amiodarone drip was stopped and she was started on oral amiodarone yesterday. She will remain on amiodarone 400 mg p.o. 3 times daily for 2 weeks then decrease to amiodarone 400 mg p.o. twice daily for 2 weeks then amiodarone 200 mg p.o. twice daily for 2 weeks then amiodarone 200 mg daily thereafter. 2. The patient was initially in cardiogenic shock and started on a milrinone drip as well as Bumex drip. She did improve over the weekend and her milrinone was stopped yesterday and she was switched to IV Bumex. The patient has diuresed well and is feeling much better. Will stop IV Bumex today and start her on Bumex 1 mg p.o. daily as well as spironolactone 25 mg p.o. daily for diuresis. 3. Start Entresto 24/26 mg p.o. twice daily for HFrEF. 4. Start Farxiga 10 mg p.o. daily for HFrEF. 5. Start Toprol-XL 25 mg p.o. daily for HFrEF. 6. ANKUR showed ejection fraction of 30%. The patient does have marked increased LV wall thickness of 1.4 cm. She has mild to moderate MR and mild to moderate TR. Due to reduced ejection fraction and marked increase in LV wall thickness, biatrial dilatation and conduction abnormalities the patient needs further evaluation for infiltrative cardiomyopathy which can be done on an outpatient basis. The patient will need a cardiac MRI and PYP scan on an outpatient basis. Will complete amyloid urine and blood testing while she is admitted to the hospital. 7. The patient has been on Lovenox for anticoagulation. Will switch her over to Eliquis 5 mg p.o. twice daily for long-term anticoagulation secondary to atrial fibrillation. 8. The patient has severe LV dysfunction. She is an increased risk for sudden cardiac due to her severe LV dysfunction. The patient will need a LifeVest in place prior to discharge home. Will order her LifeVest today. 9. Her renal function is stable with a creatinine of 1.0. 10. Her liver enzymes are still elevated which is most likely from her cardiogenic shock. Will continue to follow. 11. Her blood pressure is well-controlled. 12. Her LDL goal is less than 100. Her LDL is 144. Will hold off on a statin at this time due to her elevated liver enzymes. She also has a history of being intolerant to statins. 13. Further recommendations will be made pending the patient's response to treatment. Thank you for the opportunity to help participate in the care of this patient. All recommendations and orders are per Dr. Rodriguez.
[2024-08-10] MEDS: SPIRONOLACTONE 25MG TABLET 25 MG PO (12:01)
[2024-08-10] MEDS: METOPROLOL SUCCINATE XL 25MG TABLET 25 MG PO (12:01)
[2024-08-10] MEDS: SACUBITRIL/VALSARTAN 24-26MG TABLET 1 EACH PO ×2 (12:01→21:18)
[2024-08-10] MEDS: BUMETANIDE 1 MG TABLET PO (12:02)
[2024-08-10] MEDS: DAPAGLIFLOZIN PROPANEDIOL 10 MG TABLET PO (12:02)
[2024-08-10] MEDS: APIXABAN 5MG TABLET 5 MG PO ×2 (12:02→21:18)
[2024-08-10 12:09] LABS: Total Protein,Serum 6.6 g/dl (6.3-8.2)
--- OUTSIDE RECORDS SUMMARY | 2024-08-10 12:12 | XMS_ITS ---
Author Organization [facility] PE D JEAN MARIE Address [address] [place] [address] Care Team Providers Care Stock Preparation Supervisor Name Role Phone Sidney Maldonado Primary Care Provider [phone] Allergies Allergen (clinical drug ingredient) Drug/Non Drug Allergy documented on EMR Reaction Allergy Type Onset Date Status tegaderm (uncoded) Unknown Allergy A ctive REASON FOR VISIT 2 [facility], Medicare wellness update Medications Medication SIG (Take, Route, Frequency, Duration) Notes Start Date End Date Status Vitamin D3 1000 intl units as directed o sandrita once a day for 30 day(s) Active Vitamin B12 500 mcg 1 tab(s) orally once a day for 30 day(s) Active ibuprofen 800 mg 1 tab(s) orally twic e daily Active Stool Softener OTC 1 tab orally once a day for 90 days Active aspirin 81 mg 1 tab(s) orally once a day Active Levothyroxine Sodium 50 mcg (0.05 mg) 1 tab(s) orally once a day for 90 Active hydrochlorothiazide-losarta n 12.5 mg-50 mg 1 tab(s) orally once a day for 90 days Active Crestor 5 mg 1 tab(s) orally ever y other day for 90 days 06/25/2023 Active Potassium Chloride (Eqv-K-Tab) 20 mEq TAKE TWO TABLETS BY MOUTH TWICE A DAY for 90 Active Red Yeast Rice 600 mg 1 orally every oth er day (opposite days as the crestor) for 90 days 06/25/2023 Active C-pap mask and supplies as directed for 30 days Active C-pap machine as directed 04/01/2016 Act canelo Flonase 0.05 mg/inh 2 spray(s) intranasa lly once a day for 90 days 06/29/2019 Active Wellbutrin XL 300 mg/24 hours take one tablet by mouth daily for 90 days Active Problems Problem Type SNOMED Code ICD Code Onset Dates Problem Status W/U Status Risk Notes Problem [id number] History of breast cancer in female (Z85.3) Active confirmed Vital Signs Temperature 97.2 degrees Fahrenheit 11/06/19 24 Heart Rate 80 /min 11/06/2023 Blood pressure systolic 124 mm Hg 11/06/19 24 Blood pressure diastolic 72 mm Hg 024 Height 5 ft 1.5 in in 11/06/2023 Weight 223 lbs 11/06/2023 BMI 41.45 kg/m2 11/06/2023 Encounters Encounter Location Date Provider Diagnosis [address] [address] 11/06/2023 Sidney Maldonado Hypertension I10 ; Hyperlipidemia E78.5 ; Morbid (severe) obesity due to excess calories E66.01 ; ARI on CPAP G47.33 ; Acquired hypothyroidism E03.9 ; History of breast cancer in female Z85.3 ; Transient ischemic attack G45.9 and Routine medical exam Z00.00 Assessments Encounter Date Diagnosis (ICD Code) Assessment Notes Treat ment Notes Treatment Clinical Notes 11/06/2023 Hypertension (ICD-10 - I10) Blood pressures under excellent control. No changes in plan. 11/06/2023 Hyperlipidemia (ICD-10 - E78.5) LDL levels with every other day Crestor alternating with red yeast rice have declined from 183 down to 103. Excellent improvement. She is tolerating this regimen fairly well, had previously been significantly statin intolerant to other high-dose/high intensity statin 11/06/2023 Morbid (severe) obesity due to excess calories (ICD-10 - E66.01) Obesity noted. Minimal improvement. She continues to work on this 11/06/2023 ARI on CPAP (ICD-10 - G47.33) Good restfulness with CPAP. Still requires this to help with blood pressure control. 11/06/2023 Acquired hypothyroidism (ICD-10 - E03.9) Reviewed. His TSH with patient. No changes 11/06/2023 History of breast cancer in female (ICD-10 - Z85.3) Still follows with [facility]. No evidence of recurrence. Mammogram screening 11/06/2023 Transient ischemic attack (ICD-10 - G45.9) See prior notes from cardiology. Doing well with lipid and blood pressure control issues. No evidence of need for anticoagulation. 11/06/2023 Routine medical exam (ICD-10 - Z00.00) Out of range of colon screening. Up-to-date with mammogram screening. Up-to-date with vaccines, she will get Tdap at her pharmacy. Depression screening negative. Excellent functional status. Patient has a living will in place and her is her surrogate care decision maker Plan Of Treatment Treatment Notes Assessment Notes Hypertension Blood pressures unde r excellent control. No changes in plan. Hyperlipidemia LDL levels with ever y other day Crestor alternating with red yeast rice have declined from 183 down to 103. Excellent improvement. She is tolerating this regimen fairly well, had previously been significantly statin intolerant to other high-dose/high intensity statin Morbid (severe) obesity due to excess calories Obesity noted. Minimal improvement. She continues to work on this ARI on CPAP Good restfulness wit h CPAP. Still requires this to help with blood pressure control. Acquired hypothyroidism Reviewed. His TS H with patient. No changes History of breast cancer in female Still follows with [facility]. No evidence of recurrence. Mammogram screening Transient ischemic attack See prior note s from cardiology. Doing well with lipid and blood pressure control issues. No evidence of need for anticoagulation. Routine medical exam Out of range of colon screening. Up-to-date with mammogram screening. Up-to-date with vaccines, she will get Tdap at her pharmacy. Depression screening negative. Excellent functional status. Patient has a living will in place and her is her surrogate care decision maker Next Appt Details Follow Up: 3 Months, Reason: Progress Notes * MANCILLAMeggan CDOB:1950 (73 yo F)Acc No.[id number]:11/06/2023 Progress Notes Patient:?Meggan MANCILLA Provider:?Sidney Maldonado MD :1950???Age:73 Y???Sex:Female D ate:11/06/2023 Address:[address] , [place], [id number] Subjective: * Chief Complaints: * ???1. 2 MOTNH CK. 2. Medicar e wellness update. * HPI: ???gen:? Meggan presents for follow-up of her lipid issues, thyroid disease, palpitations ?Also needs her Medicare wellness exam updated. In regards to this she feels great. No balance issues. No falls. 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 Denies any issues with cognitive impairment. ?I reviewed her past history, screening as noted below. * ROS:?ALLERGY:?Reviewed, No Symptoms Reported:?Yes.?FUNCTIONAL STATUS:?ADLS?Independent for all ADL/IADL.?RESPIRATORY:?Reviewed, No Symptoms Reported:?Yes.?CARDIOLOGY:?Reviewed, No Symptoms Reported:?Yes.?CONSTITUTIONAL:?Reviewed, No Symptoms Reported:?Yes.?DERMATOLOGY:?Reviewed, No Symptoms Reported:?Yes.?MUSCULOSKELETAL:?Joint pain?yes,?Right shoulder, improving with PT.?OPTHALMOLOGY:?Reviewed, No Symptoms Reported:?Yes.? * Medical History:?Hyperlipide alexx - refuses statin therapies, vitamin D deficiency, hypertension, sleep apnea - CPAP started in spring, depression, Vit b12 def, DDD, Obesity, negative cologuard screening October 2017 - repeated and negative again 12/17, Right breast cancer diagnosed 06/14 - Triple negative < 1CM - lumpectomy and XRT. * Surgical History:?lumpectomy , right axilla 06/2019, cyst on right arm 1998, tubal 1970s, oral 2019, chemo port 07/2019, Lt arm 05/2022. * Hospitalization/Major Diagno stic Procedure:?Denies Past Hospitalization. * Family History:?Father: dece ased, kidney failure, diagnosed with Heart Disease.?Mother: , diagnosed with Hypertension, Heart Disease.?Paternal Grand Father: , diagnosed with Heart Disease.?Paternal Grand Mother: , diagnosed with Diabetes.?Maternal Grand Father: , diagnosed with Stroke.?Maternal Grand Mother: , diagnosed with Diabetes, Heart Disease.?Paternal uncle: .?Maternal uncle: .?Maternal aunt: alive, diagnosed with Heart Disease.?Siblings: alive.?Children: alive.?2 sister(s) - healthy. 1 son(s) , 1 daughter(s) - healthy. .? * Social History:?Smoking?Are you a:: nonsmoker.?Exercise: yes, walk. Home smoke detector use: yes. Caffeine: yes, frequency:1 cup coffee per day. Living Will: No. Alcohol: no. Travel outside [place]: no. Occupation: retired. * Medications:?Taking aspirin 81 mg delayed release tablet 1 tab(s) orally once a day , Taking ibuprofen 800 mg tablet 1 tab(s) orally twice daily , Taking Stool Softener OTC 1 tab orally once a day , Taking Vitamin D3 1000 intl units tablet as directed orally once a day , Taking Vitamin B12 500 mcg tablet 1 tab(s) orally once a day , Taking C-pap mask and supplies as directed , Taking C-pap machine as directed , Taking Flonase 0.05 mg/inh spray 2 spray(s) intranasally once a day , Taking Wellbutrin XL 300 mg/24 hours tablet, extended release take one tablet by mouth daily , Taking Levothyroxine Sodium 50 mcg (0.05 mg) tablet 1 tab(s) orally once a day , Taking Potassium Chloride (Eqv-K-Tab) 20 mEq tablet, extended release TAKE TWO TABLETS BY MOUTH TWICE A DAY , Taking Red Yeast Rice 600 mg capsule 1 orally every other day (opposite days as the crestor) , Taking hydrochlorothiazide-losartan 12.5 mg-50 mg tablet 1 tab(s) orally once a day , Taking Crestor 5 mg tablet 1 tab(s) orally every other day , Medication List reviewed and reconciled with the patient * Allergies:?Tegaderm. Objective: * Vitals:?Nurse: paul, Temp: 97. 2, RR: 20, HR: 80, BP: 124/72, Ht: 5 ft 1.5 in, Wt: 223, BMI:41.45. * Examination: ???General Examination: ?Heart:?Regular Rate and Rhythm, no murmur, rubs or gallops.?HEENT:?pharynx and tonsils normal, TM's normal.?Lungs:?LCTAB, No wheezes, crackles or rhonchi, Good air movement,.? Assessment: * Assessment: 1.?Hypertension - I10 (Prima ry)?2.?Hyperlipidemia - E78.5?3.?Morbid (severe) obesity due to excess calories - E66.01?4.?ARI on CPAP - G47.33?5.?Acquired hypothyroidism - E03.9?6.?History of breast cancer in female - Z85.3?7.?Transient ischemic attack - G45.9?8.?Routine medical exam - Z00.00? Plan: * Treatment: 2.?Hyperlipidemia? Notes: LDL levels with every other day Crestor alternating with red yeast rice have declined from 183 down to 103. Excellent improvement. She is tolerating this regimen fairly well, had previously been significantly statin intolerant to other high-dose/high intensity statin?? 3.?Morbid (severe) obesity d ue to excess calories? Notes: Obesity noted. Minimal improvement. She continues to work on this?? 4.?ARI on CPAP? Notes: Good restfulness with CPAP. Still requires this to help with blood pressure control.?? 5.?Acquired hypothyroidism? Notes: Reviewed. His TSH with patient. No changes?? 6.?History of breast cancer in female? Notes: Still follows with [facility]. No evidence of recurrence. Mammogram screening?? 7.?Transient ischemic attack ? Notes: See prior notes from cardiology. Doing well with lipid and blood pressure control issues. No evidence of need for anticoagulation.?? 8.?Routine medical exam? Notes: Out of range of colon screening. Up-to-date with mammogram screening. Up-to-date with vaccines, she will get Tdap at her pharmacy. Depression screening negative. Excellent functional status. Patient has a living will in place and her is her surrogate care decision maker?? * Procedure Codes:?G0439 ANNUA L WELLNESS VST; PPS SUBSQT VST, 1170F FUNCTIONAL STATUS ASSESSMENT, G8399 PT W/DXA DOCUMENT OR ORDER, 1123F ADVANCED DIRECTIVE - HAS A LIVING WILL, G8482 FLU IMMUNIZE ORDER/ADMIN, G9991 Pneum vax admin 60+, 3017F COLORECTAL CA SCREEN DOC REV, G8417 BMI >=30 CALCUATE W/FOLLOWUP, G8510 NEGATIVE SCREENING F/U NOT REQUIRED, G9903 Pt scrn tbco id as non user, 1036F TOBACCO NON-USER, G8752 Most recent systolic blood pressure < 140mmhg, G8754 Most recent diastolic blood pressure < 90mmhg, G8783 NORMAL BP READING DOC F/U NOT RQR * Preventive Medicine:? ??ADRYAN Screening:?Falls: Future screening for fall risks?Have you had two or more falls in the past year??No,?Have you had any falls with injury in the past year??No.? ??Depression Screening:?PHQ 2?Feeling down depressed or hopeless?No.? * Follow Up:?3 Months * * Sign off status: Completed true * Provider:?Sidney Maldonado MD Date :?11/06/2023 Generated for José Miguel martinez/Erica/eTransmitting on:?08/10/2024 12:12 PM EDT History and Physical Notes * Examination Category Sub-Category Detail Notes General Examination HEENT: pharynx and tonsils normal, TM's normal Heart: Regular Rate and Rhy thm, no murmur, rubs or gallops Lungs: LCTAB, No wheezes, c rackles or rhonchi, Good air movement,
--- OUTSIDE RECORDS SUMMARY | 2024-08-10 12:12 | XMS_ITS ---
Author Organization [facility] D JEAN MARIE Address [address] [place] [address] Care Team Providers Care Surg Nurse Name Role Phone Sidney Maldonado Primary Care Provider [phone] Allergies Allergen (clinical drug ingredient) Drug/Non Drug Allergy documented on EMR Reaction Allergy Type Onset Date Status tegaderm (uncoded) Unknown Allergy A ctive Results Component Value Reference Range Notes LIPID PANEL, STANDARD (7600) Reviewed date:09/29/2023 04:01:28 PM Interpretation: Performing Lab:[place], [id number] Vinod Vizcarra Notes/Report: NON-FASTING; NON-FASTING FASTING:NO FASTING: NO CHOLESTEROL, TOTAL 186 <200 mg/dL HDL CHOLESTEROL 56 > OR = 50 mg/dL TRIGLYCERIDES 152 <150 mg/dL LDL-CHOLESTEROL 103 Reference range: <100 Desirable range <100 mg/dL for primary prevention; <70 mg/dL for patients with CHD or diabetic patients with > or = 2 CHD risk factors. LDL-C is now calculated using the Blair calculation, which is a validated novel method providing better accuracy than the Friedewald equation in the estimation of LDL-C. Festus MULLER et al. ANASTASIA. 2013;310(19): 3773-3800 (http://education.[employer].Bioniz/faq/FAQ16 4) CHOL/HDLC RATIO 3.3 <5.0 (calc) NON HDL CHOLESTEROL 130 <130 mg/dL (calc) For patients with diabetes plus 1 major ASCVD risk factor, treating to a non-HDL-C goal of <100 mg/dL (LDL-C of <70 mg/dL) is considered a therapeutic option. COMPREHENSIVE METABOLIC PANNancy Hughes ([id number]) Reviewed date:09/29/2023 04:01:28 PM Interpretation: Performing Lab:[facility], [facility], [id number] Vinod Vizcarra Notes/Report: NON-FASTING; NON-FASTING FASTING:NO FASTING: NO GLUCOSE 88 65-139 mg/dL Non-fasting reference interval UREA NITROGEN (BUN) 11 7-25 mg/dL CREATININE 0.70 0.60-1.00 mg/dL EGFR 90 > OR = 60 mL/min/1.73m2 BUN/CREATININE RATIO SEE NOTE: 6- (calc) Not Reported: BUN and Creatinine are within reference range. SODIUM 141 135-146 mmol/L POTASSIUM 3.8 3.5-5.3 mmol/L CHLORIDE 103 98-110 mmol/L CARBON DIOXIDE 29 20-32 mmol/L CALCIUM 9.7 8.6-10.4 mg/dL PROTEIN, TOTAL 6.7 6.1-8.1 g/dL ALBUMIN 4.6 3.6-5.1 g/dL GLOBULIN 2.1 1.9-3.7 g/dL (calc) ALBUMIN/GLOBULIN RATIO 2.2 1.0-2.5 (calc) BILIRUBIN, TOTAL 0.9 0.2-1.2 mg/dL ALKALINE PHOSPHATASE 52 37-153 U/L AST 18 10-35 U/L ALT 21 6-29 U/L REASON FOR VISIT f/u cardiology Medications Medication SIG (Take, Route, Frequency, Duration) Notes Start Date End Date Status Red Yeast Rice 600 mg 1 orally every oth er day (opposite days as the crestor) for 90 days 06/25/2023 Active Potassium Chloride (Eqv-K-Tab) 20 mEq TAKE TWO TABLETS BY MOUTH TWICE A DAY for 90 Active Crestor 5 mg 1 tab(s) orally ever y other day for 90 days 06/25/2023 Active Levothyroxine Sodium 50 mcg (0.05 mg) 1 tab(s) orally once a day for 90 Active Vitamin B12 500 mcg 1 tab(s) orally once a day for 30 day(s) Active Flonase 0.05 mg/inh 2 spray(s) intranasa lly once a day for 90 days 06/29/2019 Active C-pap mask and supplies as directed for 30 days Active C-pap machine as directed 04/01/2016 Act canelo Wellbutrin XL 300 mg/24 hours take one tablet by mouth daily for 90 days Active Vitamin D3 1000 intl units as directed o rally once a day for 30 day(s) Active hydrochlorothiazide-losarta n 12.5 mg-50 mg 1 tab(s) orally once a day for 90 days Active ibuprofen 800 mg 1 tab(s) orally twic e daily Active Stool Softener OTC 1 tab orally once a day for 90 days Active aspirin 81 mg 1 tab(s) orally once a day Active Vital Signs Temperature 98.1 degrees Fahrenheit 09/25/20 23 Heart Rate 70 /min 09/25/2023 Blood pressure systolic 122 mm Hg 09/25/20 23 Blood pressure diastolic 78 mm Hg 023 Height 5 ft 1.5 in in 09/25/2023 Weight 221 lbs 09/25/2023 BMI 41.08 kg/m2 09/25/2023 Encounters Encounter Location Date Provider Diagnosis [address] [address] 09/25/2023 Sidney Maldonado Hyperlipidemia E78.5 and Transient ischemic attack G45.9 Assessments Encounter Date Diagnosis (ICD Code) Assessment Notes Treat ment Notes Treatment Clinical Notes 09/25/2023 Hyperlipidemia (ICD-10 - E78.5) Refill Crestor. Check labs to monitor response to therapy. Encouraged continuing titration up of Crestor if she is able. 09/25/2023 Transient ischemic attack (ICD-10 - G45.9) Remains on aspirin. Good blood pressure control. Follow-up 2 months for Medicare wellness and to reevaluate blood pressure control Plan Of Treatment Medication Medication Name Sig Start Date Stop Date Notes Crestor 5 mg 1 tab(s) orally ever y other day for 90 days 06/25/2023 Treatment Notes Assessment Notes Hyperlipidemia Refill Crestor. Check labs to monitor response to therapy. Encouraged continuing titration up of Crestor if she is able. Transient ischemic attack Remains on aspirin. Good blood pressure control. Follow-up 2 months for Medicare wellness and to reevaluate blood pressure control Next Appt Details Follow Up: 2 Months, Reason: Progress Notes * Meggan MANCILLA CDOB:1950 (73 yo F)Acc No.[id number]:09/25/2023 Progress Notes Patient:Meggan MADDEN Provider:?Sidney Maldonado MD :1950???Age:73 Y???Sex:Female D ate:09/25/2023 Address:[address] [place], [place] [address], [id number] Subjective: * Chief Complaints: * ???1. F/u cardiology. * HPI: ???gen:? Overall patient feels pretty good. ?Saw Dr. Araujo in cardiology who reviewed her Holter monitor and felt that she had baseline sinus tachycardia with occasional PACs and did not feel she warranted workup for A-fib or DOAC therapy. She is very pleased with this. ?Has been trying to get on Crestor every other day with alternating red yeast rice, has a little bit of aches and pains but otherwise pretty well-tolerated. ?Is due for lipid monitoring. ?Blood pressures been fairly well-controlled on current regimen she has had no further TIA symptoms. * Medical History:?Hyperlipide alexx - refuses statin [...] BY MOUTH TWICE A DAY , Taking Crestor 5 mg tablet 1 tab(s) orally every other day , Taking Red Yeast Rice 600 mg capsule 1 orally every other day (opposite days as the crestor) , Taking hydrochlorothiazide-losartan 12.5 mg-50 mg tablet 1 tab(s) orally once a day , Discontinued Eliquis 2.5 mg tablet 1 tab(s) orally 2 times a day , Discontinued Xarelto 20 mg tablet 1 tab(s) orally once a day (in the evening) , Medication List reviewed and reconciled with the patient * Allergies:?Tegaderm. Objective: * Vitals:?Nurse: paul, Temp: 98. 1, RR: 20, HR: 70, BP: 122/78, Ht: 5 ft 1.5 in, Wt: 221, BMI:41.08. * Examination: ???General Examination: ?Heart:?Regular Rate and Rhythm, no murmur, rubs or gallops.?HEENT:?pharynx and tonsils normal, TM's normal.?Lungs:?LCTAB, No wheezes, crackles or rhonchi, Good air movement,.?Neurologic Exam:?no focal signs,, normal sensation, strength, tone and reflexes,, Alert and oriented x 3.? Assessment: * Assessment: 1.?Hyperlipidemia - E78.5 (P rimary)?2.?Transient ischemic attack - G45.9? Plan: * Treatment: 2.?Transient ischemic attack ?LAB: LIPID PANEL, STANDARD (7600) ?LAB: COMPREHENSIVE METABOLIC PANEL (35924) Notes: Remains on aspirin. Good blood pressure control. Follow-up 2 months for Medicare wellness and to reevaluate blood pressure control?? * Follow Up:?2 Months * * Sign off status: Completed true * Provider:?Sidney Maldonado MD Date :?09/25/2023 Generated for Candicei ng/Fahomag/eTransmitting on:?08/10/2024 12:12 PM EDT History and Physical Notes * Examination Category Sub-Category Detail Notes General Examination HEENT: pharynx and tonsils normal, TM's normal Heart: Regular Rate and Rhy thm, no murmur, rubs or gallops Lungs: LCTAB, No wheezes, c rackles or rhonchi, Good air movement, Neurologic Exam: no focal signs,, nor mal sensation, strength, tone and reflexes,, Alert and oriented x 3
--- OUTSIDE RECORDS SUMMARY | 2024-08-10 12:12 | XMS_ITS ---
Author Organization [facility] D JEAN MARIE Address [address] [place] [address] Care Team Providers Care Emc Storage Architect Name Role Phone Sidney Maldonado Primary Care Provider Encounters Encounter Location Date Provider Diagnosis [address] [address] 09/09/2023 Sidney Maldonado Plan Of Treatment No Information Progress Notes * MANCILLAMgegan CDOB:1950 (74 yo F)Acc No.[id number]:09/09/2023 Progress Notes Patient:?Meggan MANCILLA Provider:?Sidney Maldonado MD :1950???Age:73 Y???Sex:Female D ate:09/09/2023 Address:[address] [place], [place] [id number] Subjective: * Chief Complaints: * ??? * Medical History:? Objective: * Vitals:? Assessment: Plan: * Treatment: * * Electronic signature of Omar Maldonado MD FAAP on 08/10/2024 at 12:12 PM EDT Sign off status: Pending * Provider:?Sidney Maldonado MD Date :?09/09/2023 Generated for Printi ng/Faxing/eTransmitting on:?08/10/2024 12:12 PM EDT
--- OUTSIDE RECORDS SUMMARY | 2024-08-10 12:12 | XMS_ITS | Patient Health Record ---
Author Organization [facility] D JEAN MARIE Address [address] [place] [address] Care Team Providers Care Softball Winder Name Role Phone Sidney Maldonado Primary Care Provider Allergies Allergen (clinical drug ingredient) Drug/Non Drug Allergy documented on EMR Reaction Allergy Type Onset Date Status tegaderm (uncoded) Unknown Allergy A ctive Reason For Referral No Information Medications Medication SIG (Take, Route, Frequency, Duration) Notes Start Date End Date Status C-pap mask and supplies as directed for 30 days Active C-pap machine as directed 04/01/2016 Act canelo Vitamin D3 1000 intl units as directed angelica remy once a day for 30 day(s) Active Vitamin B12 500 mcg 1 tab(s) orally once a day for 30 day(s) Active Flonase 0.05 mg/inh 2 spray(s) intranasa lly once a day for 90 days 06/29/2019 Active hydrochlorothiazide-losarta n 12.5 mg-50 mg 1 tab(s) orally once a day for 90 days Active Wellbutrin XL 300 mg/24 hours take one tablet by mouth daily for 90 days Active Levothyroxine Sodium 50 mcg (0.05 mg) 1 tab(s) orally once a day for 90 Active ibuprofen 800 mg 1 tab(s) orally twic e daily Active Stool Softener OTC 1 tab orally once a day for 90 days Active Crestor 5 mg 1 tab(s) orally ever y other day for 90 days 06/25/2023 Active Potassium Chloride (Eqv-K-Tab) 20 mEq TAKE TWO TABLETS BY MOUTH TWICE A DAY for 90 Active aspirin 81 mg 1 tab(s) orally once a day Active Red Yeast Rice 600 mg 1 orally every oth er day (opposite days as the crestor) for 90 days 06/25/2023 Active Immunizations Vaccine Route Administration Date Status Comme nts Adacel (Tdap) IM Intramuscular 03/13/2013 Administered Covid Moderna Unknown 11/30/2020 Administered Covid Moderna Unknown 12/28/2020 Administered Fluzone High Dose IM Intramuscular 07/11/2020 Administered Fluzone High Dose IM Intramuscular 07/24/2021 Administered Fluzone High Dose IM Intramuscular 07/03/2023 Administered Hep A Adult 2 Dose IM Intramuscular 08/06/2018 Administere d Influenza (Fluzone)--Medicare only IM Intramuscular 07/25/2018 Administered Pneumovax-23 (pneumococccal vaccine polyvalent)2 years or older IM Intramuscular 03/13/2013 Administered Prevnar PCV-13 (Pneumococcal conjugate 13) IM Intramuscular 06/23/2018 Administered Prevnar PCV-20 (Pneumococcal conjugate 20) IM Intramuscular 10/31/2022 Administered Problems Problem Type SNOMED Code ICD Code Onset Dates Problem Status W/U Status Risk Notes Problem 697431140 Malignant neoplasm of unspecified site of left female breast (C50.912) Active confirmed Problem 870451318 Morbid (severe) obesity due to excess calories (E66.01) Active confirmed Problem 16102032 Anxiety (F41.9) Active confirmed Problem 93711682 Vitamin D deficiency (E55.9) Active confirmed Problem 72625945 Hypertension (I10) Active confirmed Problem 06273507 Hyperlipidemia (E78.5) Active confirmed Problem 927159716 Vitamin B 12 deficiency (E53.8) Active confirmed Problem 838291232 Neuropathy (G62.9) Active confirmed Problem 551604268 Abnormal mammogram of left breast (R92.8) Active confirmed Problem 987537593 Obesity (BMI 30-39.9) (E66.9) Active confirmed Problem 172193930 Acquired hypothyroidism (E03.9) Active confirmed Problem 65578014 Sleep apnea (G47.30) Active confirmed Problem 53574205 Atrial dysrhythmia (I49.8) Active confirmed Problem 02196375 Dysthymia (F34.1) Active confirmed Problem 756968168 Statin intolerance (Z78.9) Active confirmed Problem 878866969 History of breas t cancer in female (Z85.3) Active confirmed Problem 998081742 Healthcare maintenance (Z00.00) Active confirmed Problem 38911281 ARI on CPAP (G47.33) Active confirmed Problem 292977024 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) Active confirmed Problem 54154500131567663 Meralgia paresthetica of both lower extremities (G57.13) Active confirmed Problem 13312136 Chronic allergic rhinitis due to pollen (J30.1) Active confirmed Problem 687020828 Transient ischemic attack (G45.9) Active confirmed Vital Signs Heart Rate 80 /min 11/06/2023 Temperature 97.2 degrees Fahrenheit 11/06/2023 Blood pressure diastolic 72 mm Hg 11/06/2023 Height 5 ft 1.5 in in 11/06/2023 Blood pressure systolic 124 mm Hg 11/06/2023 Weight 223 lbs 11/06/2023 BMI 41.45 kg/m2 11/06/2023 Encounters Encounter Location Date Provider Diagnosis [facility] [address] [address] 09/25/2023 Sidneybrigido Maldonado Hyperlipidemia E78.5 and Transient ischemic attack G45.[address] [address] 11/06/2023 Sidney Maldonado Hypertension I10 ; Hyperlipidemia [...] wellness and to reevaluate blood pressure control 11/06/2023 Hypertension (ICD-10 - I10) Blood pressures [...] (ICD-10 - Z85.3) Still follows with [facility]. No evidence of recurrence. Mammogram screening [...] surrogate care decision maker Plan Of Treatment Pending Test Test Name Order Date Urinalysis 09/28/2011 Physical Therapy 12/07/2015 Physical Therapy 09/13/2020 Occupational Therapy : Eval & Treatment 09/13/2020 H-CBC with AUTO DIFF 02/24/2018 H-HGBA1C 02/24/2018 C-CMP 10/04/2014 C-CMP 12/19/2020 C-LIPID PANEL 12/19/2020 C-LIPID PANEL 10/04/2014 C-THYROID PROFILE 06/23/2018 C-THYROID PROFILE 03/02/2019 C-THYROID PROFILE 04/04/2020 TSH 10/31/2022 CBC With Differential/Platelet 3 Vitamin D, 1,25 Dihydroxy 10/31/2022 Lipid Panel 10/31/2022 Vitamin B12 10/31/2022 VENIPUNCT, ROUTINE* 12/07/2015 Insurance Providers Payer Name Payer Address Payer Phone Subscriber Number Group Number Insured Name Patient Relationship to Insured Coverage Start Date Coverage End Date MEDICARE PART B [address] [phone] [id number] Meggan Sinclair Self - patient is the insured [employer] [facility] [address] [address] [place] [phone] [id number] Meggan Sinclair Self - patient is the insured [employer] [address] [place] [address] [address] [place] [address] ACL Meggan Sinclair Self - patient is the insured Medications Administered Medication Instructions Date of Administration Dosage Notes Kenalog 40mg 05/06/2017 40 mg Promethazine 06/29/2020 25 mg Kenalog 03/26/2013 1 Kenalog 08/08/2014 1 Kenalog 03/16/2015 1 Medical (General) History Medical History History ICD Code Hyperlipidemia - refuses statin therapie s vitamin D deficiency hypertension sleep apnea - CPAP started in spring depression vit b12 def DDD Obesity negative cologuard screening October - repeated and negative again 12/17 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
--- NOTE | 2024-08-10 18:22 | PC.NURSE ---
pt a&ox4. currently on 3L nc and tolerating well. pt has not complained of pain this shift. diuretics administered per mar with adequate output. 24hr urine collection initiated at 1800. jug being kept on ice in pt restroom. rt radial cath site dressing has remained c/d/i throughout the shift. no complaints at this time. call light within reach.
[2024-08-10] MEDS: BUPROPION 300 MG 1 EACH PO (21:18)
[2024-08-10] MEDS: PANTOPRAZOLE 40MG TABLET 40 MG PO (21:18)
--- NOTE | 2024-08-10 22:04 | P.PN_ITS ---
Subjective *Date: 08/11/24 *Time: 08:01 Exam Data for Last 24 hours Vital signs and Labs for Last 24 Hours: Temp Pulse Resp BP Pulse Ox O2 Del Method O2 Flow Rate 97.9 F 60 18 118/67 97 Nasal Cannula 3 08/10/24 20:00 08/10/24 20:00 08/10/24 20:00 08/10/24 20:00 08/10/24 20:00 08/10/24 21:00 08/10/24 21:00 FiO2 32 08/08/24 20:40 Laboratory Results - last 24 hr 08/08/24 02:38: Hepatitis C Antibody Non reactive 08/10/24 08:20: WBC 6.0, RBC 4.37, Hgb 13.4, Hct 39.6, MCV 90.4, MCH 30.7, MCHC 34.0, RDW 14.4, Plt Count 142, MPV 8.2, Neut % (Auto) 67.5, Lymph % (Auto) 23.0, [place] % (Auto) 6.2, Eos % (Auto) 2.2, Baso % (Auto) 1.1, Neut # (Auto) 4.0, Lymph # (Auto) 1.4, [place] # (Auto) 0.4, Eos # (Auto) 0.1, Baso # (Auto) 0.1, Sodium 139, Potassium 3.4 L, Chloride 108 H, Carbon Dioxide 25, Anion Gap 9.4, BUN 26 H , Creatinine 1.00, Estimated Creat Clear 33, Estimated GFR 54 L, Est GFR ( Amer) 65, Glucose 122 H, Calcium 9.1, Magnesium 1.8 D, Total Bilirubin 0.9, AST 96 H D, ALT 199 H, Alkaline Phosphatase 45, Total Protein 6.4 08/10/24 08:20: Total Protein 6.6, Albumin 4.1, Globulin 2.3, Albumin/Globulin Ratio 1.8, Triglycerides 216 H, Cholesterol 230 H, LDL Cholesterol Direct 144.56 H, VLDL Cholesterol 43 H, HDL Cholesterol 37 L, Cholesterol/HDL Ratio 6.2 H I & O for Last 24 hours: Intake & Output 08/07/24 08/08/24 08/09/24 08/10/24 23:59 23:59 23:59 23:59 Intake Total 979.117 / 5196.834 0584 1860 / 1860 Output Total 100 / 100 0 / 0 2825 / 2825 Balance 879.117 / 6945.106 6780.213 / -965 / -965 Weight 104.916 kg 105.823 kg 105.8 kg Constitutional Constitutional: no acute distress *Routine HEENT Exam Head: Present normocephalic Eye: Present EOMI and PERRL ENT: Present mucous membranes moist *Routine Neck Exam Neck: Present supple; Absent lymphadenopathy *Routine Respiratory Exam Respiratory: Present CTA bilaterally *Routine Cardiovascular Exam Cardiovascular: Present RRR *Routine Abdominal Exam Abdominal: Present soft and normoactive bowel sounds; Absent tenderness *Routine Extremities Exam Extremities: Absent cyanosis, clubbing or edema *Routine Skin Exam Skin: Present warm; Absent rash *Routine Neurological Exam Neurological: Present alert and oriented X3 Assessment and Plan *Assessment and plan (1) Cardiogenic shock: Status: Acute Category: Medical Code(s): R57.0 - Cardiogenic shock (2) HFrEF (heart failure with reduced ejection fraction): Status: Acute Category: Medical Code(s): I50.20 - Unspecified systolic (congestive) heart failure (3) Atrial fibrillation with RVR: Status: Acute Category: Medical Code(s): I48.91 - Unspecified atrial fibrillation (4) Pleural effusion: Status: Acute Category: Medical Code(s): J90 - Pleural effusion, not elsewhere classified (5) Hypertension: Status: Acute Qualifiers: Hypertension type: primary hypertension Qualified Code(s): I10 - Essential (primary) hypertension Category: Medical Code(s): I10 - Essential (primary) hypertension (6) Elevated liver enzymes: Status: Acute Category: Medical Code(s): R74.8 - Abnormal levels of other serum enzymes (7) Cardiomyopathy: Status: Acute Qualifiers: Cardiomyopathy type: other Qualified Code(s): I42.8 - Other cardiomyopathies Category: Medical Code(s): I42.9 - Cardiomyopathy, unspecified (8) LV dysfunction: Status: Acute Category: Medical Code(s): I51.9 - Heart disease, unspecified (9) Morbid obesity with body mass index (BMI) of 40.0 to 44.9 in adult: Status: Chronic Category: Medical Code(s): E66.01 - Morbid (severe) obesity due to excess calories; Z68.41 - Body mass index [BMI] 40.0-44.9, adult (10) Sleep apnea: Problem Comment: Does wear a cpap Status: Acute Category: Medical Code(s): G47.30 - Sleep apnea, unspecified Plan 74-year-old female with history of hypertension, obesity, hypothyroid, and anxiety. Presented to the ER with a week of shortness of breath. In the ER, found to be in A-fib with RVR. Case discussed with ER physician, request admission for treatment of A-fib and cardiology eval. Medicine agreed to admit for further management. Had an episode yesterday with worsening hypotension tachyarrhythmia with A-fib RVR. Necessitated addition of IV amiodarone and milrinone drip. Did well overnight. Continues to require ICU level of care with milrinone drip. Cardiology evaluating today. Improved hemodynamics this morning. Continues to require inpatient management. Problems addressed as follows: Cardiogenic shock, resolved A-fib RVR, resolved Acute heart failure with reduced ejection fraction ?Presented with A-fib RVR and cardiogenic shock requiring amiodarone drip and milrinone drip. ?Patient is status post cardioversion yesterday and is significantly more stable, no longer in RVR or hypotensive. Patient also feels like she is doing well. -Transitioned off amiodarone drip to p.o. amiodarone 400 mg 3 times daily for 2 weeks, then twice daily for 2 weeks, then daily thereafter per cardiology recommendations. - Echocardiogram LVEF 30%. -Started Eliquis 5 mg twice daily, discontinue therapeutic Lovenox. ? Cardiology following, started Entresto, Farxiga, Toprol, spironolactone. Will monitor for tolerance over the next day, and if stable anticipate discharge with close follow-up with cardiology. Hypokalemia: -Resolved, elevated this morning. Holding oral replacement Anxiety: Continue Wellbutrin 300mg daily Hypothyroid: continue home levothyroxine 50mcg daily, tsh 1.7 History of sleep apnea but only wears her CPAP mask at night, she says she will ask her to bring her CPAP and she knows if it is not possible that we would then be able to provide her CPAP here, Morbid obesity: complicates all aspects of her care Full code Lovenox 1mg/kg BID Cardiac diet
[2024-08-10] MEDS: POTASSIUM CHLORIDE 20MEQ TAB 40 MEQ PO (23:11)
[2024-08-10] MEDS: MAGNESIUM SULFATE IN WATER 2 GM/50 ML PIGGYBACK IV (23:11)
[2024-08-11] VITALS (7 sets, daily range): BP systolic 107–147; BP diastolic 57–77; PULSE 45–70; RESP 16–18; TEMP 36.2–36.8; O2SAT 96–98; BMI 43.8
[2024-08-11] MEDS: POTASSIUM CHLORIDE 20MEQ TAB 40 MEQ PO (02:47)
[2024-08-11] MEDS: *PAT OWN MED* LEVOTHYROXINE 50MCG (0.05MG) TAB 50 MCG PO (06:32)
[2024-08-11 08:07] LABS: Albumin Level 4.2 g/dl (3.5-5.0); Basophils % 0.8 % (0.1-2.0); Chloride 109 mmol/L (98-107); Eosinophils # 0.2 K/mm3 (0.0-0.4); Eosinophils % 3.1 % (0.1-12.0); Hematocrit 40.9 % (37.0-47.0); Hemoglobin 14.2 g/dL (12.2-16.2); Lymphocytes % 20.6 % (10-50); Mean Corpuscular HGB Conc 34.6 g/dL (31.8-35.4); Mean Corpuscular Hemoglobin 30.9 pg (27.0-31.2); Mean Corpuscular Volume 89.2 fl (81-99); Mean Platelet Volume 8.3 fl (7.4-10.4); Monocytes # 0.3 K/mm3 (0.1-1.0); Monocytes % 6.6 % (1.7-9.3); Neutrophils # 3.3 K/mm3 (1.8-7.8); Neutrophils % 68.9 % (37.0-80.0); Platelet Count 165 K/mm3 (142-424); Potassium 4.1 mmoL/L (3.5-5.1); Red Blood Count 4.59 M/mm3 (4.20-5.40); Red Cell Distribution Width 14.3 % (11.5-17.5); Sodium 140 mmol/L (136-145); White Blood Count 4.8 K/mm3 (4.8-10.8)
[2024-08-11 08:10] LABS: Alanine Aminotransferase 200 U/L (12-78); Albumin/Globulin Ratio 1.8 (1.1-1.8); Anion Gap 11.1 mEq/L (5-15); Aspartate Amino Transferase 81 U/L (14-36); Bilirubin,Total 0.9 mg/dl (0.2-1.3); Blood Urea Nitrogen 26 mg/dl (7-17); Carbon Dioxide 24 mmol/L (22.0-30.0); Creatinine Clearance Estimated 33 mL/min (50-200); Estimated Glomerular Filt Rate 61 ml/min (>60); GFR (African American) 74 ML/MIN (>60); Globulin 2.3 g/dL (1.3-3.2); Total Protein,Serum 6.5 g/dl (6.3-8.2)
[2024-08-11 08:11] LABS: Alkaline Phosphatase 50 U/L (38-126); Calcium 9.3 mg/dl (8.4-10.2); Glucose 168 mg/dl (74-100)
[2024-08-11] MEDS: AMIODARONE 200MG TABLET 400 MG PO ×2 (08:27→13:17)
[2024-08-11] MEDS: SPIRONOLACTONE 25MG TABLET 25 MG PO (08:28)
[2024-08-11] MEDS: BUMETANIDE 1 MG TABLET PO (08:28)
[2024-08-11] MEDS: DAPAGLIFLOZIN PROPANEDIOL 10 MG TABLET PO (08:28)
[2024-08-11] MEDS: METOPROLOL SUCCINATE XL 25MG TABLET 25 MG PO (08:28)
[2024-08-11] MEDS: APIXABAN 5MG TABLET 5 MG PO (08:28)
--- NOTE | 2024-08-11 09:08 | EXP.CARD.PN ---
Subjective Subjective Date: 08/11/24 Time: 08:30 Principal diagnosis: HFrEF, cardiogenic shock Interval history: This is a 74-year-old female who was admitted to the hospital with HFrEF and cardiogenic shock. The patient was initially started on a milrinone drip and Bumex for her HFrEF as well as an amiodarone drip for her atrial fibrillation with RVR. The patient underwent left cardiac catheterization and has normal coronary arteries. She was eventually converted to IV Bumex and then oral Bumex yesterday and the milrinone drip has been stopped. During her left cardiac catheterization after engagement of the right coronary artery the patient converted to sinus rhythm and did not have to undergo cardioversion. She maintained sinus rhythm this morning and is on oral amiodarone. She states that she feels really good this morning. She denies any chest pain or pressure. She denies any shortness of breath or edema. She denies any fever, chills, nausea, vomiting, diarrhea, PND orthopnea. The patient has been approved for her LifeVest and will be fitted today. Exam Data for Last 24 hours Vital signs and Labs for Last 24 Hours: Temp Pulse Resp BP Pulse Ox O2 Del Method O2 Flow Rate 97.6 F 54 L 18 107/57 L 98 Room Air 3 08/11/24 08:00 08/11/24 08:00 08/11/24 08:00 08/11/24 08:00 08/11/24 08:00 08/11/24 09:00 08/11/24 08:00 FiO2 32 08/08/24 20:40 Laboratory Results - last 24 hr 08/10/24 08:20: Sodium 139, Potassium 3.4 L, Chloride 108 H, Carbon Dioxide 25, Anion Gap 9.4, BUN 26 H, Creatinine 1.00, Estimated Creat Clear 33, Estimated GFR 54 L, Est GFR ( Amer) 65, Glucose 122 H, Calcium 9.1, Magnesium 1.8 D, Total Bilirubin 0.9, AST 96 H D, ALT 199 H, Alkaline Phosphatase 45, Total Protein 6.4 08/10/24 08:20: Total Protein 6.6, Albumin 4.1, Globulin 2.3, Albumin/Globulin Ratio 1.8, Triglycerides 216 H, Cholesterol 230 H, LDL Cholesterol Direct 144.56 H, VLDL Cholesterol 43 H, HDL Cholesterol 37 L, Cholesterol/HDL Ratio 6.2 H 08/11/24 07:35: WBC 4.8, RBC 4.59, Hgb 14.2, Hct 40.9, MCV 89.2, MCH 30.9, MCHC 34.6, RDW 14.3, Plt Count 165, MPV 8.3, Neut % (Auto) 68.9, Lymph % (Auto) 20.6, [place] % (Auto) 6.6, Eos % (Auto) 3.1, Baso % (Auto) 0.8, Neut # (Auto) 3.3, Lymph # (Auto) 1.0, [place] # (Auto) 0.3, Eos # (Auto) 0.2, Baso # (Auto) 0.0, Sodium 140, Potassium 4.1 D, Chloride 109 H, Carbon Dioxide 24, Anion Gap 11.1, BUN 26 H, Creatinine 0.90, Estimated Creat Clear 33, Estimated GFR 61, Est GFR ( Amer) 74, Glucose 168 H D, Calcium 9.3, Total Bilirubin 0.9, AST 81 H, ALT 200 H, Alkaline Phosphatase 50, Total Protein 6.5, Albumin 4.2, Globulin 2.3, Albumin/Globulin Ratio 1.8 I & O for Last 24 hours: Intake & Output 08/08/24 08/09/24 08/10/24 08/11/24 23:59 23:59 23:59 23:59 Intake Total 979.117 / 1395.730 1282.213 / 2321.213 2270 / 2270 Output Total 100 / 100 0 / 0 2825 / 2825 0 / 0 Balance 879.117 / 3535.362 6941.213 / 2321.213 -555 / -555 0 / 0 Weight 231 lb 4.8 oz 233 lb 4.8 oz 233 lb 3.985 oz 223 lb 7 oz Constitutional Constitutional: no acute distress and morbidly obese *Routine HEENT Exam Head: Present normocephalic and atraumatic ENT: Present mucous membranes moist *Routine Neck Exam Neck: Present supple, full ROM and normal carotid upstroke; Absent JVD, carotid bruit or lymphadenopathy *Routine Respiratory Exam Respiratory: Present CTA bilaterally, normal respiratory effort, able to speak in complete sentences and symmetric chest movement *Routine Cardiovascular Exam Cardiovascular: Present Normal S1, Normal S2, tachycardia and irregularly irregular; Absent murmur or gallop *Routine Abdominal Exam Abdominal: Present soft and normoactive bowel sounds; Absent tenderness, distended or organomegaly *Routine Extremities Exam Extremities: Present full ROM, pulses intact and normal capillary refill; Absent cyanosis, clubbing or edema *Routine Skin Exam Skin: Present intact and warm; Absent erythema *Routine Neurological Exam Neurological: Present alert, oriented X3 and CN II-XII intact; Absent sensory deficit or motor deficit Routine Psychiatric Exam Psychiatric: Present normal affect Progress Note: A&P Assessment and plan (1) Cardiogenic shock: Status: Acute (2) HFrEF (heart failure with reduced ejection fraction): Status: Acute (3) Atrial fibrillation with RVR: Status: Acute (4) Pleural effusion: Status: Acute (5) Hypertension: Status: Acute (6) Elevated liver enzymes: Status: Acute (7) Cardiomyopathy: Status: Acute (8) LV dysfunction: Status: Acute (9) Morbid obesity with body mass index (BMI) of 40.0 to 44.9 in adult: Status: Chronic (10) Sleep apnea: Problem details: Does wear a cpap Status: Acute Assessment and Plan Assessment and Plan for All Diagnoses:: Plan: 1. The patient was admitted to the hospital and found to be in atrial fibrillation with RVR and cardiogenic shock. The patient was initially treated with IV diltiazem and oral and IV metoprolol. She was then started on amiodarone drip. The patient underwent ANKUR and was scheduled to undergo cardioversion following her left cardiac catheterization but during her left cardiac catheterization when her right coronary artery was engaged she converted to sinus rhythm on her own. Her amiodarone drip was stopped and she was started on oral amiodarone. The patient remains in sinus rhythm this morning. She will remain on amiodarone 400 mg p.o. 3 times daily for 2 weeks then decrease to amiodarone 400 mg p.o. twice daily for 2 weeks then amiodarone 200 mg p.o. twice daily for 2 weeks then amiodarone 200 mg daily thereafter. 2. The patient was initially in cardiogenic shock and started on a milrinone drip as well as Bumex drip. She did improve over the weekend and her milrinone was stopped the day before yesterday. And she was switched to IV Bumex. Then her IV Bumex was switched to oral Bumex yesterday and she continues to diurese well. 3. Continue spironolactone, Entresto, Farxiga and Toprol for HFrEF. 4. Echocardiogram shows an ejection fraction of 30% and increased LV wall thickness at 1.4 cm. There is mild to moderate TR and mild MR and mild AI. 5. ANKUR showed ejection fraction of 30%. The patient does have marked increased LV wall thickness of 1.4 cm. She has mild to moderate MR and mild to moderate TR. 6. Due to the reduced ejection fraction and marked increase in LV wall thickness, biatrial dilatation and conduction abnormalities the patient needs further evaluation for infiltrative cardiomyopathy which can be done on an outpatient basis. The patient will need a cardiac MRI and PYP scan on an outpatient basis. Amyloid labs drawn yesterday, still pending as they are send out labs. 7. The patient is on Eliquis for correction anticoagulation secondary to atrial fibrillation. 8. The patient has severe LV dysfunction. She is at an increased risk for sudden cardiac due to her severe LV dysfunction. The patient will need a LifeVest in place prior to discharge home. The patient's LifeVest has been approved and she will be fitted later today. 9. Her renal function is stable with a creatinine of 0.9. 10. Her liver enzymes are still elevated which is most likely from her cardiogenic shock. Will continue to follow on an outpatient basis. 11. Her blood pressure is well-controlled. 12. Her LDL goal is less than 100. Her LDL is 144. Will hold off on a statin at this time due to her elevated liver enzymes. She also has a history of being intolerant to statins. 13. No further recommendations at this time from a cardiac standpoint. The patient is stable for discharge home today with follow-up in cardiology clinic next week. 14. The patient will need to be discharged on the following cardiac medications: Amiodarone 400 mg p.o. 3 times daily, Eliquis 5 mg p.o. twice daily, Bumex 1 mg p.o. daily, Farxiga 10 mg daily, Toprol-XL 25 mg daily, Entresto 24/26 mg p.o. twice daily, Aldactone 25 mg p.o. daily. Thank you for the opportunity to help participate in the care of this patient. All recommendations and orders are per Dr. Rodriguez.
[2024-08-11] MEDS: MAGNESIUM OXIDE 400MG TABLET 400 MG PO (09:34)
[2024-08-11] MEDS: SACUBITRIL/VALSARTAN 24-26MG TABLET 1 EACH PO (09:34)
--- NOTE | 2024-08-11 16:06 | EXP.DC.SUM ---
General Admission date:: 08/08/24 HPI HPI HPI: This 74-year-old female, that is obese. Comes into the emergency room after not feeling well for the last week., She described last Friday feeling weak while shopping had to come get the car and take her home felt bad the next day got a little better Friday and then symptoms returned on , she stated she could not feel her heart beating rapidly and does not feel it beating rapidly now. 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 Araujo. She noted she is supposed to be on cholesterol medication but has been unable to take that and not taken it since February, she reports that she has suffered no trauma or illnesses within the last 30 days., Notable history breast cancer treated with radiation and chemotherapy in 2019, being on thyroid medication she also noted approximately a year ago had a TIA, was seen by her medical instructor after that this symptom has never returned. Only anticoagulation the patient is on is a baby aspirin Patient also noted for being on CPAP on a regular basis for sleeping. Presently not having any chest pain or symptoms. Heart rate after returning to the floor had increased back up into the 140s and other 10 mg of Cardizem IV was given. , Hospital Course Hospital Course Hospital Course: 74-year-old female with history of hypertension, obesity, hypothyroid, and anxiety. Presented to the ER with a week of shortness of breath. In the ER, found to be in A-fib with RVR. Case discussed with ER physician, request admission for treatment of A-fib and cardiology eval. Medicine agreed to admit for further management. Had an episode yesterday with worsening hypotension tachyarrhythmia with A-fib RVR. Necessitated addition of IV amiodarone and milrinone drip. Did well overnight. Continues to require ICU level of care with milrinone drip. Cardiology evaluating today. Improved hemodynamics this morning. Continues to require inpatient management. Problems addressed as follows: #Cardiogenic shock #A-fib RVR #Acute HFrEF ? The patient was admitted to the hospital and found to be in atrial fibrillation with RVR and cardiogenic shock. The patient was initially treated with IV diltiazem and oral and IV metoprolol. She was then started on amiodarone drip. The patient underwent ANKUR and was scheduled to undergo cardioversion following her left cardiac catheterization but during her left cardiac catheterization when her right coronary artery was engaged she converted to sinus rhythm on her own. Her amiodarone drip was stopped and she was started on oral amiodarone. The patient remains in sinus rhythm this morning. She will remain on amiodarone 400 mg p.o. 3 times daily for 2 weeks then decrease to amiodarone 400 mg p.o. twice daily for 2 weeks then amiodarone 200 mg p.o. twice daily for 2 weeks then amiodarone 200 mg daily thereafter. - Cardiologenic shock and volume overload improved with IV milrinoneand Bumex drips. Transitioned to Bumex 1mg daily. - ECHO shows an ejection fraction of 30% and increased LV wall thickness at 1.4 cm. There is mild to moderate TR and mild MR and mild AI. - Lifevest ordered and fitted. - Continue Eliquis 5mg BID. - Discharged with Amiodarone 400 mg p.o. 3 times daily, Eliquis 5 mg p.o. twice daily, Bumex 1 mg p.o. daily, Farxiga 10 mg daily, Toprol-XL 25 mg daily, Entresto 24/26 mg p.o. twice daily, Aldactone 25 mg p.o. daily. - Patient will follow-up with cardiology within 1 week. Anxiety: Continue Wellbutrin 300mg daily Hypothyroid: continue home levothyroxine 50mcg daily, tsh 1.7 History of sleep apnea but, CPAP nightly. Morbid obesity: complicates all aspects of her care Exam Data for Last 24 hours Vital signs and Labs for Last 24 Hours: Temp Pulse Resp BP Pulse Ox O2 Del Method O2 Flow Rate 98.0 F 54 L 18 108/62 L 96 Room Air 1 08/11/24 11:49 08/11/24 13:04 08/11/24 11:49 08/11/24 11:49 08/11/24 13:04 08/11/24 14:51 08/11/24 11:49 FiO2 32 08/08/24 20:40 Laboratory Results - last 24 hr 08/10/24 14:30: Urine Total Protein 8.0 08/11/24 07:35: WBC 4.8, RBC 4.59, Hgb 14.2, Hct 40.9, MCV 89.2, MCH 30.9, MCHC 34.6, RDW 14.3, Plt Count 165, MPV 8.3, Neut % (Auto) 68.9, Lymph % (Auto) 20.6, [place] % (Auto) 6.6, Eos % (Auto) 3.1, Baso % (Auto) 0.8, Neut # (Auto) 3.3, Lymph # (Auto) 1.0, [place] # (Auto) 0.3, Eos # (Auto) 0.2, Baso # (Auto) 0.0, Sodium 140, Potassium 4.1 D, Chloride 109 H, Carbon Dioxide 24, Anion Gap 11.1, BUN 26 H, Creatinine 0.90, Estimated Creat Clear 33, Estimated GFR 61, Est GFR ( Amer) 74, Glucose 168 H D, Calcium 9.3, Total Bilirubin 0.9, AST 81 H, ALT 200 H, Alkaline Phosphatase 50, Total Protein 6.5, Albumin 4.2, Globulin 2.3, Albumin/Globulin Ratio 1.8 I & O for Last 24 hours: Intake & Output 08/08/24 08/09/24 08/10/24 08/11/24 23:59 23:59 23:59 23:59 Intake Total 979.117 / 7024.968 9731.213 / 2321.213 2270 / 2270 720 / 720 Output Total 100 / 100 0 / 0 2825 / 2825 1350 / 1350 Balance 879.117 / 6928.934 0894.213 / 2321.213 -555 / -555 -630 / -630 Weight 104.916 kg 105.823 kg 105.8 kg 101.35 kg Constitutional Constitutional: no acute distress and morbidly obese *Routine HEENT Exam Head: Present normocephalic and atraumatic ENT: Present mucous membranes moist *Routine Neck Exam Neck: Present supple, full ROM and normal carotid upstroke; Absent JVD, carotid bruit or lymphadenopathy *Routine Respiratory Exam Respiratory: Present CTA bilaterally, normal respiratory effort, able to speak in complete sentences and symmetric chest movement *Routine Cardiovascular Exam Cardiovascular: Present Normal S1, Normal S2, tachycardia and irregularly irregular; Absent murmur or gallop *Routine Abdominal Exam Abdominal: Present soft and normoactive bowel sounds; Absent tenderness, distended or organomegaly *Routine Extremities Exam Extremities: Present full ROM, pulses intact and normal capillary refill; Absent cyanosis, clubbing or edema *Routine Skin Exam Skin: Present intact and warm; Absent erythema *Routine Neurological Exam Neurological: Present alert, oriented X3 and CN II-XII intact; Absent sensory deficit or motor deficit Routine Psychiatric Exam Psychiatric: Present normal affect Results Data Completed and Pending Labs on day of discharge: Labs from last 24 hours 08/11/24 08/10/24 07:35 14:30 WBC 4.8 RBC 4.59 Hgb 14.2 Hct 40.9 MCV 89.2 MCH 30.9 MCHC 34.6 RDW 14.3 Plt Count 165 MPV 8.3 Neut % (Auto) 68.9 Lymph % (Auto) 20.6 [place] % (Auto) 6.6 Eos % (Auto) 3.1 Baso % (Auto) 0.8 Neut # (Auto) 3.3 Lymph # (Auto) 1.0 Pepin # (Auto) 0.3 Eos # (Auto) 0.2 Baso # (Auto) 0.0 Sodium 140 Potassium 4.1 D Chloride 109 H Carbon Dioxide 24 Anion Gap 11.1 BUN 26 H Creatinine 0.90 Estimated Creat Clear 33 Estimated GFR 61 Est GFR ( Amer) 74 Glucose 168 H D Calcium 9.3 Total Bilirubin 0.9 AST 81 H ALT 200 H Alkaline Phosphatase 50 Total Protein 6.5 Albumin 4.2 Globulin 2.3 Albumin/Globulin Ratio 1.8 Urine Total Protein 8.0 DS: Diagnosis Discharge Diagnosis (1) Cardiogenic shock: Status: Resolved Code(s): R57.0 - Cardiogenic shock (2) HFrEF (heart failure with reduced ejection fraction): Status: Acute Code(s): I50.20 - Unspecified systolic (congestive) heart failure (3) Atrial fibrillation with RVR: Status: Resolved Code(s): I48.91 - Unspecified atrial fibrillation (4) Pleural effusion: Status: Resolved Code(s): J90 - Pleural effusion, not elsewhere classified (5) Hypertension: Status: Acute Code(s): I10 - Essential (primary) hypertension Qualifiers: Hypertension type: primary hypertension Qualified Code(s): I10 - Essential (primary) hypertension (6) Elevated liver enzymes: Status: Resolved Code(s): R74.8 - Abnormal levels of other serum enzymes (7) Cardiomyopathy: Status: Acute Code(s): I42.9 - Cardiomyopathy, unspecified Qualifiers: Cardiomyopathy type: other Qualified Code(s): I42.8 - Other cardiomyopathies (8) LV dysfunction: Status: Acute Code(s): I51.9 - Heart disease, unspecified (9) Morbid obesity with body mass index (BMI) of 40.0 to 44.9 in adult: Status: Inactive Code(s): E66.01 - Morbid (severe) obesity due to excess calories; Z68.41 - Body mass index [BMI] 40.0-44.9, adult (10) Sleep apnea: Status: Inactive Code(s): G47.30 - Sleep apnea, unspecified Problem details: Does wear a cpap Meds Home Medications and Allergies Home Medications ?Medication ?Instructions ?Recorded ?Confirmed ?Type bupropion HCl 300 mg 24 hr tablet, 300 mg PO HS 11/29/19 08/19/24 History extended release levothyroxine 50 mcg tablet 50 mcg PO DAILY 11/29/19 08/19/24 History potassium chloride 20 mEq 40 meq PO BID 11/29/19 08/19/24 History tablet,extended release(part/cryst) aspirin 81 mg tablet,delayed 81 mg PO DAILY 08/08/24 08/19/24 History release bumetanide 1 mg tablet 1 mg PO DAILY 30 days #30 tabs 08/11/24 08/19/24 Rx magnesium oxide 400 mg (241.3 mg 400 mg PO DAILY 30 days #30 tabs 08/11/24 08/19/24 Rx magnesium) tablet metoprolol succinate 25 mg 25 mg PO DAILY 30 days #30 tabs 08/11/24 08/19/24 Rx tablet,extended release 24 hr spironolactone 25 mg tablet 25 mg PO DAILY 30 days #30 tabs 08/11/24 08/19/24 Rx amiodarone 200 mg tablet 400 mg (2 x 200 mg) PO BID 30 days 08/19/24 08/19/24 Rx #120 tabs empagliflozin 10 mg tablet 10 mg PO DAILY #30 tabs 08/19/24 08/19/24 Rx (Jardiance) rivaroxaban 20 mg tablet (Xarelto) 20 mg PO DAILY #30 tabs 08/19/24 08/19/24 Rx valsartan 40 mg tablet 40 mg PO BID #60 tabs 08/19/24 08/19/24 Rx New Prescriptions to Start Prescriptions: bumetanide Yaima,Reese magnesium oxide Yaima,Reese metoprolol succinate Yaima,Reese spironolactone Reese Erwin Allergies Allergy/AdvReac Type Severity Reaction Status Date / Time silver Allergy Verified 08/19/24 11:11 [From Tegaderm AG Mesh] Hortinc-SKS-SyO Reductase AdvReac Severe myalgias Verified 08/19/24 11:11 Inhibitor Discharge Plan Disposition Patient Disposition: Home, Self-Care Condition: Fair Discharge Order Discharge Orders: Discharge Order (Routine); Ordered 08/11/24 Ordered By: Reese Erwin Follow up Plan Follow up with: Tony Durbin MD [Staff Physician] - 08/19/24 11:15 am Sidney Maldonado MD [Primary Care Provider] - 08/17/24 10:30 am (at [facility]) Prescriptions/Medication Reconciliation: New amiodarone 200 mg Tablet 400 mg PO TID 30 Days Qty: 180 0RF spironolactone 25 mg Tablet 25 mg PO DAILY 30 Days Qty: 30 0RF magnesium oxide 400 mg (241.3 mg magnesium) Tablet 400 mg PO DAILY 30 Days Qty: 30 0RF bumetanide 1 mg Tablet 1 mg PO DAILY 30 Days Qty: 30 0RF metoprolol succinate 25 mg Tablet Extended Release 24 Hr 25 mg PO DAILY 30 Days Qty: 30 0RF Eliquis 5 mg Tablet 5 mg PO BID 30 Days Qty: 60 0RF dapagliflozin propanediol [Farxiga] 10 mg Tablet 10 mg PO DAILY 30 Days Qty: 30 0RF Entresto 24-26 mg Tablet 1 tab PO BID 30 Days Qty: 60 0RF Continued bupropion HCl 300 mg tablet extended release 24 hr 300 mg PO HS levothyroxine 50 mcg tablet 50 mcg PO DAILY potassium chloride 20 mEq tablet,ER particles/crystals 40 meq PO BID aspirin 81 mg Tablet,Delayed Release (Dr/Ec) 81 mg PO DAILY Discontinued losartan-hydrochlorothiazide 50-12.5 mg Tablet 1 tab PO HS Problem Reconciliation Problems Reviewed?: Yes Patient Discharge Instructions ACTIVITY: Continue current activity DIET: cardiac Additional Instructions: Please discharge after 6 PM after 24-hour urine collection is complete, and after LifeVest has been fitted. Patient Instructions: Transesophageal Echocardiography, DI for Heart Failure, DI for Cardiac Catheterization, DI for Atrial Fibrillation, DI for Surgical Site Infection Print Language: Peruvian Providers Primary Care Provider: Sidney Maldonado Admit Provider: Jeremy Hunter Attending Provider: Jeremy Hunter
--- NOTE | 2024-08-12 11:20 | CARE MANAGER ---
Called and spoke with patient regarding recent discharge. Patient stated that she is doing well, has started new medication and was aware of scheduled f/u appts. No concerns voiced at time of call.
[2024-08-12 13:26] LABS: Albumin, U 34.8 % (.); Alpha-1-Globulin, U 11.3 % (.); Alpha-2-Globulin, U 9.6 % (.); Beta Globulin, U 17.4 % (.); Gamma Globulin, U 26.8 % (.); M-Spike, % Not Observed % (Not Observed); Protein,Total,Urine <4.0 mg/dL (Not Estab.)
[2024-08-12 14:24] LABS: Albumin 3.8 g/dL (2.9-4.4); Alpha-1-Globulin 0.2 g/dL (0.0-0.4); Alpha-2-Globulin 0.6 g/dL (0.4-1.0); Gamma Globulin 0.5 g/dL (0.4-1.8); Protein, Total 6.3 g/dL (6.0-8.5)
[2024-08-12 16:14] LABS: Free Kappa Lt Chains 14.3 mg/L (3.3-19.4); Free Lambda Lt Chains 12.7 mg/L (5.7-26.3); Immunoglobulin A, Qn 257 mg/dL (64-422); Immunoglobulin G, Qn 627 mg/dL (586-1602); Immunoglobulin M, Qn 40 mg/dL (26-217)
[2024-08-16 15:30] LABS: Alpha-1-Globulin, U 1.6 % (.); Alpha-2-Globulin, U 11.1 % (.); Gamma Globulin, U 27.3 % (.); M-Spike, % Not Observed % (Not Observed); Prot,24hr calculated 158 mg/24 hr (30-150); Protein,Total,Urine 7.7 mg/dL (Not Estab.)
== END 2024-08-11 18:17 | disposition home or self-care (01) | DRG 286 ==
LOC: ER 04:26 → 2ND 05:12
PROVIDERS: Internal Medicine; Nurse Practitioner Family; Student in an Organized Health Care Education/Training Program; Admitting Provider Internal Medicine Adolescent Medicine; Emergency Provider Emergency Medicine; PCP Internal Medicine Adolescent Medicine; Visit Provider Internal Medicine Adolescent Medicine
PROC: B2111ZZ Fluoroscopy of Multiple Coronary Arteries using Low Osmolar Contrast (ICD-10-PCS; principal; 2024-08-09 13:15)
DX: I50.23 Acute on chronic systolic (congestive) heart failure (principal); R57.0 Cardiogenic shock; J90 Pleural effusion, not elsewhere classified; E87.6 Hypokalemia; Z68.41 Body mass index [BMI] 40.0-44.9, adult; I11.0 Hypertensive heart disease with heart failure; I48.0 Paroxysmal atrial fibrillation; R53.1 Weakness; E03.9 Hypothyroidism, unspecified; G47.30 Sleep apnea, unspecified; E66.01 Morbid (severe) obesity due to excess calories; I42.9 Cardiomyopathy, unspecified; Z79.899 Other long term (current) drug therapy
CPT/HCPCS: 36415; 71045; 80048; 80053; 80061; 82784; 83735; 83880; 83883; 84155; 84156; 84165; 84166; 84443; 84484; 85025; 85378; 85610; 86334; 86335; 86803; 87389; 92960; 93005; 93270; 93306; 93312; 93319; 93454; 94760; 97162; 97165; 99152; 99285; C1725; C1769; J0282; J1200; J1644; J1650; J1939; J2250; J2260; J2405; J3010; J3475; J7060; J7120; Q9967

== ENCOUNTER 2024-09-14 07:32 | Outpatient (CLI) | payer MEDICARE, SELFPAY ==
--- NOTE | 2024-09-14 07:33 | NM_ITS ---
APPROVED REPORT Career And Technology Education Teacher: anival Parker Procedure: 99mTc-PYP Cardiac Amyloidosis Imaging Clinical Indication: Heart failure, increased LV wall thickness Protocol: The patient received 26.5 mCi 99mTc-PYP intravenously. Planar and SPECT imaging was performed approximately 3 hours post injection. Planar images included anterior, left lateral and CHAPIS-45 projections. Findings: Visual interpretation: Planar and SPECT images were reviewed The overall quality of the study was good. Semi quantitative SPECT findings showed a grade 1. Impression: 1. Overall, the quality of the study was good. 2. Semi quantitative SPECT findings showed grade 1. 3. Overall interpretation of the findings is not suggestive of ATTR amyloidosis. This study and report were reviewed and signed by Gabe Rodriguez MD (hide mill worker). Conclusion Electronically signed by : Marlena Rodriguez MD 09/14/2024 12:55:29
[2024-09-14] MEDS: SODIUM CHLORIDE 0.9% 10ML SYR (RAD ONLY) 10 ML IV (09:04)
[2024-09-14] MEDS: PYROPHOSPHATE CARDIAC (PYP);1 DOSE VIAL IV (09:04)
== END 2024-09-14 23:59 | disposition home or self-care (01) ==
LOC: RAD 07:33
PROVIDERS: PCP Internal Medicine Adolescent Medicine; Visit Provider Physician Assistant
DX: I50.20 Unspecified systolic (congestive) heart failure (principal)
CPT/HCPCS: 78800

== ENCOUNTER 2024-09-21 10:07 | Outpatient (CLI) | payer MEDICARE, SELFPAY ==
[2024-09-21 10:46] LABS: Blood Urea Nitrogen 26 mg/dl (7-17); Estimated Glomerular Filt Rate 44 ml/min (>60); GFR (African American) 53 ML/MIN (>60)
[2024-09-21] MEDS: SODIUM CHLORIDE 0.9% 10ML SYR (RAD ONLY) 10 ML IV (12:53)
[2024-09-21] MEDS: SODIUM CHLORIDE 0.9% 50ML BAG 25 ML IV (12:53)
[2024-09-21] MEDS: GADOTERIDOL INJ 20ML SYRINGE 19 ML IV (12:54)
== END 2024-09-21 23:59 | disposition home or self-care (01) ==
LOC: RAD 10:08
PROVIDERS: PCP Internal Medicine Adolescent Medicine; Visit Provider Physician Assistant
DX: I50.22 Chronic systolic (congestive) heart failure (principal); I48.0 Paroxysmal atrial fibrillation
CPT/HCPCS: 36415; 75561; 82565; 84520; A9576

== ENCOUNTER 2024-10-07 12:44 | Outpatient (RCR) | payer MEDICARE, SELFPAY | END 2024-12-08 10:00 | disposition home or self-care (01) | LOC: CR 12:44 | PROVIDERS: Visit Provider Nurse Practitioner Family | DX: I50.32 Chronic diastolic (congestive) heart failure (principal); R06.09 Other forms of dyspnea | CPT/HCPCS: 93798 ==

== ENCOUNTER 2025-03-07 13:29 | Outpatient (CLI) | payer MEDICARE, SELFPAY | END 2025-03-07 23:59 | disposition home or self-care (01) | LOC: RT 13:31 | PROVIDERS: PCP Internal Medicine Adolescent Medicine; Visit Provider Nurse Practitioner Family | DX: R00.1 Bradycardia, unspecified (principal) | CPT/HCPCS: 93270 ==

== ENCOUNTER 2025-07-05 07:41 | Outpatient (CLI) | payer MEDICARE, SELFPAY ==
--- OUTSIDE RECORDS SUMMARY | 2024-12-15 07:45 | XMS_ITS ---
Author Organization [facility] Address [address] [place] [address] Care Team Providers Care Hog Grader Name Role Phone Sidney Maldonado Primary Care Provider REASON FOR VISIT 1 month f/u Encounters Encounter Location Date Provider Diagnosis [facility] [address] [place] [address] 12/15/2024 Sidney Maldonado Plan Of Treatment Next Appt Details Provider Name:Sidney Maldonado, 08/23/2025 10:30:00 AM, [address] [place] [address], [id number], Progress Notes * Meggan MANCILLA CDOB:1950 (75 yo F)Acc No.[id number]:12/15/2024 Progress Notes Patient: Leo Meggan CHICAS Provider: Rian Maldonado MD :[id number] A ge:74 Y S ex:Female Date:12/15/2024 Address:[address] [place], [place] [id number] Subjective: * Chief Complaints: * 1 . 1 month f/u. * Medical History: Objective: * Vitals: Assessment: Plan: * Treatment: * * Electronic signature of Omar Maldonado MD FAAP on 07/05/2025 at 07:44 AM EDT Sign off status: Pending * Provider: Rian Maldonado MD Date: 0 12/15/2024 Generated for José Miguel martinez/Erica/Lucía on: 0 07/05/2025 07:44 AM EDT
--- OUTSIDE RECORDS SUMMARY | 2025-01-29 17:30 | XMS_ITS ---
Author Organization [facility] JE[facility] MAR[facility] Address [address] [facility] [place] [address] Care Team Providers Care Consumer Safety Inspector Name Role Phone Sidney Maldonado Primary Care Provider Migration, Provider Unavailable Unavailable Allergies Allergen (clinical drug ingredient) Drug/Non Drug Allergy documented on EMR Reaction Allergy Type Onset Date Status Tegaderm Unknown Allergy Active REASON FOR VISIT [facility] To [facility] Conversion Encounter Medications Medication SIG (Take, Route, Frequency, Duration) Notes Start Date End Date Status POTASSIUM CHLORIDE (EQV-K-TAB) 20 MEQ TAKE TWO TABLETS BY MOUTH TWICE A DAY; Duration: 90 DAYS *Please review for potential replacement for e-prescription and drug interaction check* Active Levothyroxine Sodium 50 MCG 1/2tab orally once a day; Duration: 90 days Active C-PAP MASK AND SUPPLIES DIRECTED; Duration: 30 DAYS *Please review for potential replacement for e-prescription and drug interaction check* 07/29/2017 Active Metoprolol Tartrate 25 MG 1 tab(s) orally once a day Active Spironolactone 25 MG 1 tab(s) orally once a day Active Magnesium Oxide 400 MG 1 tab(s) orally once a day Active Bumetanide 1 MG 1 tab(s) orally once a day Active Amoxicillin 500 MG 1 cap(s) orally every 8 hours; Duration: 2 days 01/18/2025 Active Entresto 24-26 MG 1 tab(s) orally 2 times a day Active Eliquis 5 MG as directed orally 2 times a day Active Jardiance 10 MG 1 tab(s) orally once a day (in the morning) Active C-PAP MACHINE DIRECTED *Please review f or potential replacement for e-prescription and drug interaction check* 04/01/2016 Active Wellbutrin XL 300 MG take one tablet by mouth daily; Duration: 90 days Active Promethazine-DM 6.25-15 MG/5ML 5 mL orally every 6 hours; Duration: 10 days 12/30/2024 Active Amiodarone HCl 200 MG 1 tab(s) orally once a day Active Encounters Encounter Location Date Provider Diagnosis [facility] [address] [place] [address] 01/29/2025 Provider Migration Subacute cough R05.2 Assessments Encounter Date Diagnosis (ICD Code) Assessment Notes Treatment Notes Treatment Clinical Notes Section Notes 01/29/2025 Subacute cough (ICD-10 - R05.2) Plan Of Treatment Medication Medication Name Sig Start Date Stop Date Notes Amoxicillin 500 MG 1 cap(s) orally ever y 8 hours; Duration: 2 days 01/18/2025 Wellbutrin XL 300 MG take one tablet by mouth daily; Duration: 90 days Promethazine-DM 6.25-15 MG/5ML 5 mL oral ly every 6 hours; Duration: 10 days 12/30/2024 Next Appt Details Provider Name:Sidney Maldonado, 08/23/2025 10:30:00 AM, [address] [place] [place] [address], [phone], Progress Notes * Meggan MANCILLA CDOB:1950 (75 yo F)Acc No.[id number]:01/29/2025 Patient: Meggan FAROOQ Don Provider: Lacho conklin Migration :1950 A ge:74 Y S ex:Female Date:01/29/2025 Address:[address] [place], [place] [id number] Pcp:Sidney Maldonado Subjective: * Chief Complaints: * 1 . Multum To Medispan Conversion Encounter. * Medical History: * Medications: T aking Jardiance 10 MG Tablet 1 tab(s) orally once a day (in the morning) , Taking Amiodarone HCl 200 MG Tablet 1 tab(s) orally once a day , Taking Bumetanide 1 MG Tablet 1 tab(s) orally once a day , Taking Eliquis 5 MG Tablet as directed orally 2 times a day , Taking Entresto 24-26 MG Tablet 1 tab(s) orally 2 times a day , Taking Magnesium Oxide 400 MG Tablet 1 tab(s) orally once a day , Taking Metoprolol Tartrate 25 MG Tablet 1 tab(s) orally once a day , Taking Spironolactone 25 MG Tablet 1 tab(s) orally once a day , Taking Levothyroxine Sodium 50 MCG Tablet 1/2tab orally once a day , Taking POTASSIUM CHLORIDE (EQV-K-TAB) 20 MEQ TABLET, EXTENDED RELEASE TAKE TWO TABLETS BY MOUTH TWICE A DAY , Notes to Pharmacist: *Please review for potential replacement for e-prescription and drug interaction check*, Taking C-PAP MASK AND SUPPLIES DIRECTED , Notes to Pharmacist: *Please review for potential replacement for e-prescription and drug interaction check*, Taking C-PAP MACHINE DIRECTED , Notes to Pharmacist: *Please review for potential replacement for e-prescription and drug interaction check* * Allergies: T egaderm. Objective: * Vitals: Assessment: * Assessment: 1. S ubacute cough - R05.2 Plan: * Treatment: 2. O thers Start Amoxicillin Capsule, 500 MG, 1 cap(s), orally, every 8 hours, 2 days, 6 Capsule, Refills 0;?Start Wellbutrin XL Tablet Extended Release 24 Hour, 300 MG, take one tablet by mouth daily, 90 days, 90, Refills 1. * * Electronic signature of Prov ider Migration on 07/05/2025 at 07:45 AM EDT Sign off status: Pending * Provider: Lacho conklin Migration Date: 0 01/29/2025 Generated for José Miguel martinez/Erica/Lucía on: 0 07/05/2025 07:45 AM EDT
--- OUTSIDE RECORDS SUMMARY | 2025-04-07 06:00 | XMS_ITS ---
Author Organization [facility] Address [address] [place] [address] Care Team Providers Care Felt Checker Name Role Phone Sidney Maldonado Primary Care Provider REASON FOR VISIT med ck Encounters Encounter Location Date Provider Diagnosis [facility] [address] [address] 04/07/2025 Sidney Maldonado Plan Of Treatment Next Appt Details Provider Name:Sidney Maldonado, 08/23/2025 10:30:00 AM, [address] [place] [address], [phone], Progress Notes * Meggan MANCILLA CDOB:1950 (75 yo F)Acc No.[id number]:04/07/2025 Progress Notes Patient: Leo Meggan CHICAS Provider: Rian Maldonado MD :1950 A ge:74 Y S ex:Female Date:04/07/2025 Address:[address] [place], [place] [id number] Subjective: * Chief Complaints: * 1 . Med ck. * Medical History: Objective: * Vitals: Assessment: Plan: * Treatment: * * Electronic signature of Omar Maldonado MD FAAP on 07/05/2025 at 07:44 AM EDT Sign off status: Pending * Provider: Rian Maldonado MD Date: 0 04/07/2025 Generated for José Miguel martinez/Erica/Lucía on: 0 07/05/2025 07:44 AM EDT
--- OUTSIDE RECORDS SUMMARY | 2025-07-05 07:45 | XMS_ITS | Encounter Summary ---
[facility] Address [address] [place] [address] Care Team Providers Care Winder Contort Operator Name Role Phone Sidney Maldonado MD Primary Care Provider + [phone] Encounter Details Date Type Department Care Team (Late st Contact Info) Description 05/17/2025 Telephone [facility] [address] [address] Olesya Bah, MANAGER POKER [address] [place] [address] Social History Tobacco Use Types Packs/Day Years Used Date Smoking Tobacco: Never Smokeless Tobacco: Never Alcohol Use Standard Drinks/Week Comments No 0 (1 standard drink = 0.6 oz pur e alcohol) AUDIT-C Answer Date Recorded Q1: How often do you have a drink containing alcohol? Never 06/04/2022 Q2: How many drinks containi ng alcohol do you have on a typical day when you are drinking? Patient does not drink Q3: How often do you have si x or more drinks on one occasion? Never 06/04/2022 PHQ-2 Answer Date Recorded Retired PHQ-9: Brief Depression Severity Measure Score 0 03/21/2023 PHQ-2 Answer Date Recorded Retired PHQ-9: Brief Depression Severity Measure Score 0 03/21/2023 Comments No Sex and Gender Information Value Date Recorded Sex Assigned at Not on file Legal Sex Female 3:01 PM EDT Gender Identity Not on file Sexual Orientation Not on file documented as of this encounter Miscellaneous Notes * Telephone Encounter - Olesya Bah APRN - 05/17/2025 2:55 PM EDT We received a referral from Dr. Medley for routine follow-up on Meggan, no new problems. When I last saw her last she had opted to follow-up as needed. I called to see how she was doing and if she had any new concerns. She states that overall she feels well, she had been dealing with some heart issues but otherwise no new pain or other worrisome symptoms. She is now approaching 6 years out from diagnosis of her triple negative breast cancer. She is up-to-date on mammography, screening mammogram in November was BI-RADS 1. I discussed with her that she did not need routine oncological follow-up at this point in the absence of new symptoms she could follow-up with her PCP but if she felt more comfortable I would be glad to see her. She is opted to follow-up with her PCP. documented in this encounter Plan of Treatment Not on file documented as of this encounter Visit Diagnoses Not on filedocumented in this encounter Care Teams Winder Contort Operator Relationship Specialty Start Date End Date Sidney Maldonado MD [facility] [place] [address] [address] PCP - General Adolescent Medicine 05/31/19 documented as of this encounter
--- OUTSIDE RECORDS SUMMARY | 2025-07-05 07:45 | XMS_ITS ---
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 Past Treatment and Therapy Plans ONCOLOGY TREATMENT Plan Name Start Date Discontinue Date Treatment Medications Discontinue Reason Plan Provider Cycles OP BREAST TC DOCEtaxel / Cyclophosphamide 07/30/20 19 07/10/2020 cyclophosphamide (CYTOXAN) chemo IVPBDOCEtaxel (TAXOTERE) chemo IVPBpegfilgrastim (NEULASTA ONPRO) Therapy Complete Julio Geller MD 4 of 4 cycles started Treatment Summaries Malignant neoplasm of upper-inner quadrant of left breast in female, estrogen receptor negative* Images from the original note were not included. Breast Cancer Survivorship Plan General Information Patient name Meggan Sinclair Date of 1950 Phone Email [email or web address] Cancer Treatment Team Patient Care Team: Marcie Delacruz MD as Referring Physician (General Surgery) Yudi Briseno MD as Consulting Physician (Radiation Oncology) Provider Phone numbers Care Team Provider: Marcie Delacruz MD, ([phone]) Care Team Provider: Yuid Briseno MD, ([phone]) Post Treatment Care Team Primary Care Physician Sidney Maldonado MD [facility] [address] [address] Background Information Medical history Past Medical History: Disease of thyroid gland Hypertension Malignant neoplasm of upper-inner quadrant of left breast in female, estrogen receptor negative (CMS/HCC) Sleep apnea with use of continuous positive airway pressure (CPAP) Surgical history Past Surgical History: BREAST BIOPSY BREAST LUMPECTOMY 07/30/2019 Dr. Delacruz OTHER SURGICAL HISTORY cyst removed TUBAL ABDOMINAL LIGATION Tobacco use Social History Tobacco Use Smoking Status Never Smoker Smokeless Tobacco Never Used Family oncology history Cancer-related family history is negative for Breast cancer, Colon cancer, Endometrial cancer, and Ovarian cancer. Oncology Information Malignant neoplasm of upper-inner quadrant of left breast in female, estrogen receptor negative (CMS/HCC) 05/31/2019 Initial Diagnosis Malignant neoplasm of upper-inner quadrant of left breast in female, estrogen receptor negative (CMS/HCC) 06/10/2019 Biopsy Left breast 11:00 ultrasound-guided biopsy: Pathology revealed invasive ductal carcinoma, high-grade. Estrogen receptor, progesterone receptor, and HER-2/payal negative by immunohistochemistry. 07/07/2019 Surgery Surgery Procedure: Left breast lumpectomy and sentinel lymph node biopsy Location: Left Clinical Information The working history is malignant neoplasm of upper inner quadrant of left breast. Final Diagnosis 1. LEFT BREAST, NEEDLE LOCALIZED EXCISION: Invasive ductal carcinoma with basal-like morphology, Alena grade 3, measuring 10 mm. Margins are negative. Invasive carcinoma is at least 2.5 mm from all margins. Prognostic receptors (IHC repeated on current specimen): ER, RI, and HER2 negative. See synoptic report. 2. SENTINEL LYMPH NODE, LEFT AXILLARY, EXCISIONAL BIOPSY: One benign lymph node, negative for metastatic carcinoma (0/1). INVASIVE BREAST CANCER STAGING TEMPLATE: TYPE OF SPECIMEN/PROCEDURE: Left breast, needle localized excision SPECIMEN LATERALITY: Left TUMOR SITE: 11:00 TUMOR SIZE: 10 mm HISTOLOGIC TYPE OF INVASIVE CARCINOMA: Invasive ductal carcinoma ALENA HISTOLOGIC GRADE: TUBULAR FORMATION: 3 MITOTIC ACTIVITY: 3 PLEOMORPHISM: 3 OVERALL SCORE: 3 DUCTAL CARCINOMA IN SITU: Not identified TUMOR EXTENSION: No skin or nipple present SURGICAL MARGINS: Uninvolved by invasive carcinoma. DISTANCE FROM CLOSEST MARGIN: Invasive carcinoma is 2.5 mm from the lateral margin. All other margins are at least 4 mm away. LYMPH NODES: Uninvolved by tumor cells TOTAL NUMBER OF LYMPH NODES EXAMINED (Including sentinel nodes): 1 NUMBER OF SENTINEL NODES EXAMINED: 1 VASCULAR/LYMPHATIC INVASION: Not identified ESTROGEN RECEPTOR STATUS BY IHC METHOD (all repeated on current specimen): Negative PROGESTERONE RECEPTOR STATUS BY IHC METHOD: Negative HER-2/payal ONCOPROTEIN STATUS BY IHC METHOD: Negative TREATMENT EFFECT: No known presurgical therapy ADDITIONAL PATHOLOGIC FINDINGS: Biopsy site is present and is associated with the invasive carcinoma OTHER STUDIES: Can be performed upon request AJCC PATHOLOGIC STAGE (8TH EDITION): pT1b pN0(sn) (COMPLETED BY PATHOLOGIST, BASED ONLY ON TISSUE FINDINGS, MORE EXTENSIVE DISEASE MAY NOT BE KNOWN TO THE PATHOLOGIST) at 0844 Gross Description Specimen 1 received in formalin labeled as left breast lumpectomy is a 5.5 x 4.1 x 1.7 cm needle localized lumpectomy which is oriented by the surgeon with a short stitch designated superior and a long stitch designated lateral. The needle localization wire protrudes from the anterior margin. The specimen is inked as follows: Anterior - green, inferior - blue, lateral - orange, medial - yellow, posterior - black; superior - red. Sectioning from anterior to posterior reveals a firm, white mass containing a coiled biopsy clip, approximately 1.0 x 0.8 x 0.6 cm. The mass is 1.7 cm from the anterior margin, 1.8 cm from the posterior margin, 1.5 cm from the inferior margin, 1.1 cm from the superior margin, 0.5 cm from the medial margin, and 0.6 cm from the lateral margin. The remainder of the specimen consists predominately of yellow lobulated fat. No other gross lesions are identified. Rubber Stamps And Dies Supervisor sections are submitted as follows: 1A-1B - anterior margin, perpendicularly sectioned; 1-C- one slice anterior to tumor; 1D-1I - all slices containing tumor, cut in half (section with clip in block F-G); 1-J - one slice posterior to mass; 1K-1L - posterior margin, perpendicularly sectioned. Cold ischemic time is 23 minutes and total time in formalin is greater than 6 hours. Specimen 2 received in formalin labeled as left deep axillary sentinel node is a 1.7 x 1.2 x 0.5 cmlymph node with surrounding fat is identified, bisected, and submitted entirely in block 2-A. LED/dlb Microscopic Description The slides are reviewed and demonstrate histopathologic features supporting the above rendered diagnosis. IMMUNOHISTOCHEMICAL RESULTS (IHC): Estrogen Receptor RESULT: Negative 0% Progesterone Receptor RESULT: Negative 0% Her2/Payal oncoprotein RESULT: Negative 0% 0 (INTENSITY SCORE) All controls stain appropriately including external positive, internal negative and external negative controls as required. ER clone Sundown SP1, RI clone IE2, polymer, IVD approved immunohistochemical stains are performed on formalin-fixed, paraffin-embedded tissue. 1% or greater numbers of nuclei staining of any intensity is considered a positive test in our laboratory. Estrogen, Progesterone Receptors and Her2/payal testing is scored and reported as per ASCO/CAP guidelines published in J Clin Oncol 2013, 31: 9042-7142 (2013 update). The reference values for positive,negative and equivocal are listed above. HER-2/payal oncoprotein (Sundown clone [id number], polymer, IVD). Test is performed on formalin fixed, paraffin embedded tissue. NEGATIVE TEST is 0+ or 1+ staining. POSITIVE TEST is 3+ staining, with at least10% of tumor showing strong and uniform membranous staining. EQUIVOCAL TEST is 2+ or questionable 3+ staining and is submitted for testing by GINA method for HER2/payal oncogene amplification. 07/30/2019 - 10/01/2019 Chemotherapy OP BREAST TC DOCEtaxel / Cyclophosphamide x 4 cycles 11/02/2019 - 12/08/2019 Radiation Radiation OncologyTreatment Course: Meggan Sinclair received 4500 cGy in 25 fractions to left breast via External Beam Radiation - EBRT. Complications during Therapy: No concerns stated Modification to Treatment Plan: No Modifications Lifetime Dose Tracking No doses have been documented on this patient for the following tracked chemicals: Doxorubicin, Epirubicin, Idarubicin, Daunorubicin, Mitoxantrone, Bleomycin, Mitomycin, Doxorubicin Liposomal Treatment Summary Treatment goal [No plan goal] Plan Name OP BREAST TC DOCEtaxel / Cyclophosphamide Status Active Start Date 07/30/2019 End Date 10/01/2019 Provider Julio Geller MD Chemotherapy pegfilgrastim (NEULASTA ONPRO) on-body injector 6 mg, 6 mg, Subcutaneous, Once, 4 of 4cycles Administration: 6 mg (07/30/2019), 6 mg (08/20/2019), 6 mg (09/10/2019), 6 mg (10/01/2019) cyclophosphamide (CYTOXAN) 1,130 mg in sodium chloride 0.9 % 331.5 mL chemo IVPB, 600 mg/m2 = 1,130mg, Intravenous, Once, 4 of 4 cycles Administration: 1,130 mg (07/30/2019), 1,130 mg (08/20/2019), 1,130 mg (09/10/2019), 1,130 mg (10/01/2019) DOCEtaxel 140 mg in sodium chloride 0.9 % 282 mL chemo IVPB, 75 mg/m2 = 140 mg, Intravenous, Once, 4 of 4 cycles Administration: 140 mg (07/30/2019), 140 mg (08/20/2019), 140 mg (09/10/2019), 140 mg (10/01/2019) Response to treatment Persistent Treatment-Associated Adverse Effects at Completion of Therapy It is important to recognize that not every person experiences the following adverse events after treatment. You may not have any of these issues, a few or many adverse effects. Experiences are highly variable. Please discuss any adverse effects of cancer treatment with your cancer care team. After Surgical Therapy Breast Conserving Surgery (Lumpectomy) Breast conserving surgery (lumpectomy) involves the removal of the breast mass (cancer lump) and a surrounding area of normal tissue. After surgery, there may be pain and soreness in the chest, underarm or shoulder which should get better over time. Nerves may be damaged in the breast and areas of lymph node removal which may result in numbness and other changes in sensation. Ask your doctor or nurse if you have issues with pain, numbness or tingling, or any changes in function or mobility. Breast conserving surgery allows women to keep their breast but the breast may look different than it did before surgery. The breast may be smaller and may be different in size and shape. There will be a scar from the surgery and scar tissue may feel different. Radiation therapy can also affect theway the breast looks and feels. How you think and feel about your body is important and coping withchanges after breast surgery takes time. It's important to look at your scar, which should become less red and swollen over time. It's important to touch your scar, too. Your physician may give you instructions about massaging the scar to help with healing and to soften scar tissue. If you have a partner, let your partner look at and feel the scar when you're ready. Working through feelings aboutthe cancer and changes as a result of surgery may take time and support. Talk with your doctor or nurse about any issues with body image and coping. Survivors of breast cancer should speak with their health care provider regarding the possibility of a genetic or family syndrome. If there does appear to be a family history or possible genetic syndrome, genetic counseling and testing may be recommended. After Chemotherapy Chemotherapy travels throughout the body and can affect both cancer cells and normal, healthy cells. Damage to healthy cells can cause side effects. Every person doesn't get every side effect, and some people get few, if any. Many side effects go away fairly quickly after treatment ends, but some may take months or even years to completely go away. The time it takes to get over some side effects and get your energy back varies from person to person. It depends on many factors; including your overall health and the drugsyou were given. Some side effects can last a lifetime, such as when chemo causes long-term damage to the heart, lungs, kidneys, or reproductive organs. Certain types of chemo sometimes cause delayed effects, such as a second cancers that may show up many years later. Ask your doctor or nurse if youneed more information. After Radiation Therapy Radiation therapy can cause early and late side effects. Early side effects are those that happen during or shortly after treatment and are usually gone within a few weeks after treatment ends. Late side effects may take months or years to develop and vary depending on the areas of the body included in the field of radiation and the radiation techniques that were used. The most common early side effects are fatigue (feeling tired) and skin changes. Other early side effects are usually related to the area being treated. If you continue to have some skin problems after treatment ends, be gentle with the skin in the treatment area until all signs of irritation are gone and continue to care for your skin as your doctors and nurses have advised. If you continue to have fatigue, you may need to plan your activities to maximize energy, get extra rest while your bodyis still recovering and follow other instructions from your doctors and nurses such as exercise andactivity. terminal clerk effects of radiation therapy vary greatly depending on the areas included in the field ofradiation and the radiation techniques that were used. Breast tissue exposed to radiation may become more firm over time and you may notice changes in the size and shape of the breast. The skin wherethe breast was treated may have a different coloration, be more red or appear tanned. If the lymph nodes under the arm (axillary nodes) were in the radiation field, there may be an increased risk of developing lymphedema. Lymphedema is a condition in which fluid collects in the arm or other areas such as the hand, fingers, chest or back and cause swelling. In rare cases, radiation therapy can increase the risk of a second cancer. Ask your doctors and nurses about the risk of retirement effects. Keep your follow up appointments and keep up with recommended health screenings Hormone Therapy Not receiving hormone therapy Care of your Venous Access Device No Venous Access Device currently in place General After Cancer Treatment It is not uncommon for cancer to impact other areas of your life such as relationships, work and mental health. If you develop financial concerns, resources are sometimes available to assist in theseareas. Depression and anxiety can present either during or after cancer diagnosis and treatment. Itis important to discuss with your physician any of these concerns so these resources can be made available to you. General Cancer Support & Resources [facility] [address], [address] [place] [address] Med Onc: Chemical Sprayer Onc: Aquarium Specialist: Dominique Trinidad - Psychiatric Nurse Practitioner: Meggan Villarreal APRN - [phone] Kick It! (A free smoking cessation program) Financial Counselor and Contact Information: [facility] Financial Counseling - Investigations Consultant Contact Information: Valerie Barbour - [phone] Wound Ostomy & Continence Nurse: Local Cancer Support Group and Contact Information: Look Good Feel Better: A non-medical, brand-neutral public service program that teaches beauty techniques to people with cancer to help them manage the appearance-related side effects of cancer treatment. The program includes lessons on skin and nail care, cosmetics, wigs and turbans, accessories and styling, helping people with cancer to find some normalcy in a life. - See more at: http://lookgoodfeelbetter.org Journey Toward Empowerment - for Women with Cancer: ([facility]) The Tools and encouragement you need to live your life to the fullest. Free Dinner served @ 6:00pm followed by speaker from 6:30 - 7:30pm. The series runs from July, and meets monthly. Call Ansley Goodwin RN, OCN @ to receive information and upcoming schedule. [facility] Cancer Buddies: This support group is open to anyone that has been diagnosed with cancer of any type. Meets at 6:30pm on the last Friday of each . Location: [facility]; [address] [place] [address]. For more information call Sherrell Chamberlain @ . Breast Cancer Support & Resources Local Cancer Support Groups and Contact Information: [employer] (Sieper): Breast Cancer Support group. Meets the Friday of each month at various locations. Please Call Asif Murray for meeting information @ [phone] or Rebeca Orta @ [phone]. The Journey: Breast Cancer Support Ministry: Meets the Friday of each month, 5:00PM @ O???[facility] [place], [place]. Please call Pastora Stapleton at [phone] for additional information. Reach To Recovery: An [employer] peer support group for women with a concern about breast cancer. Patentscan talk with volunteer breast cancer survivors, in person or over the phone, for support & encouragement. Also, after you have completed your journey and would like to give back, you can call the [phone] number to volunteer as a survivor and support to others. For additional information, please call [phone] or go to sss.cancer.org. Surveillance How Frequent? Medical Oncology visits 1 - 4 times per year as clinically appropriate for 5 years, then annually Lab tests No routine lab tests Imaging exams Mammography Every 12 months Lymphedema Monitor for lymphedema Genetic Counseling Periodic screening for changes in family history and referral to genetic counseling as indicated Gynecologic assessment For women on tamoxifen, gynecologic assessment every 12 months if uterus is present. Bone Density study For women on aromatase inhibitor or who experience ovarian failure secondary to treatment should have monitoring of bone health and bone mineral density determination at baseline and periodically thereafter Immunizations Influenza Herpes Zoster Pneumococcal Yearly Once As appropriate Tobacco Cessation The patient is not currently a tobacco user. Counseling given: Not Answered Monitor for ongoing toxicities: None Specified Call your doctor if you have any of these signs or symptoms New or worsening symptoms. Pain that is new, unrelieved or bothersome. Difficulty with your emotions, anxiety, and/or depression. Physical problems that affect your abilities in your daily life or those that are bothersome (for example, continued fatigue, trouble sleeping, sexual problems, or edema). Referrals provided There are no referral needs at this time. Self Care Plan Self Care Plan: What You Can Do to Stay Healthy after Treatment for Cancer Cancer treatments may increase your chance of developing other health problems years after you havecompleted treatment. The purpose of this self care plan is to inform you about what steps you can take to maintain good health after cancer treatment. Keep in mind that every person treated for cancer is different and that these recommendations are not intended to be a substitute for the advice of a doctor or other health skin care consultant. Please use these recommendations to talk with your health care provider about an appropriate follow up care plan for you. Surveillance for Your Cancer Recommendation Frequency Comments Cancer surveillance visit with medical provider that is focused on detecting signs of recurrence ofyour cancer. For additional information, visit www.livestrong.org or www.cancer.net/patient/Survivorship Frequency depends on type and stage of cancer you had. (If you had a higher risk cancer, you may be seen more often). Your doctor has provided you with a personalized cancer treatment summary and survivorship care plan. If you need another copy, ask your doctor. General Cancer Screening for Women Cancer screening tests are designed to find cancer or pre-cancerous areas before there are any symptoms and, generally, when treatments are most successful. Various organizations have developed guidelines for cancer screening for women. While these guidelines vary slightly between different organizations, they cover the same basic screening tests for breast, cervical and colorectal cancers. In addition, during routine health examinations (at any age) your health care provider may also evaluate for cancers of the skin, mouth and thyroid. Not all screening tests are right for everyone. Your personal and family cancer history, and/or the presence of a known genetic predisposition, can affect which tests are right for you, and at what age you begin them. Therefore, you should discuss these with your health care provider. Your care plan will also include a section on follow up care foryour type of cancer, and these recommendations override the general screening recommendations for that particular type of cancer in the general population. The [employer] (ACS) recommends these screening guidelines for women: Recommendation Frequency Comments Breast Cancer Screening For more information, see the ACS document Breast Cancer: Early Detection. www.cancer.org/ssLINK/pjwslq-ylponm-lrqgt-detection-shanel Yearly mammograms starting at age 40, and continuing for as long as a woman is in good health. Clinical breast exam (CBE), performed by a health skin care consultant, every three years for women intheir 20s and 30s, and every year for women 40 and over. A monthly breast self-exam (BSE) is a good way to monitor breast health. Women should know how their breasts normally look and feel, and report any change promptly to their health care provider. The ACS recommends that some women - because of their family history, a genetic tendency, or certain other factors - be screened with Magnetic Resonance Imaging (MRI) in addition to mammograms. The numberof women who fall into this category is small (less than 2 percent of all [place] women). Talk with your doctor about your personal history and whether you should have additional tests at an earlier age. Colon and Rectal Cancer Screening For more information see the ACS document Colorectal Cancer: Early Detection. www.cancer.org/ssLINK/upxxdsiosx-vytwtg-sejos-detection-shanel Options for colon cancer screening can be divided into those that screen for both cancer and polyps, and those that just screen for cancer.Screening should begin at age 45 (unless you are considered high risk (see comments), using one of the following testing schedules: Tests that find polyps and cancer (Preferred over those that find cancer alone. If any of these tests are positive, a colonoscopy should be done.) Flexible sigmoidoscopy every five years, or Colonoscopy every 10 years, or Double-contrast barium enema every five years, or CT colonography (virtual colonoscopy) every five years Tests that primarily test for cancer Yearly fecal occult blood test (FOBT)*, or Yearly fecal immunochemical test (FIT) *, or Stool DNA test (sDNA), interval uncertain* * The multiple stool take-home test should be used. One test done by the doctor in the office is not adequate. A colonoscopy should be done if the test is positive. Talk with your doctor about your medical history, and what colorectal cancer screening test and schedule is best for you. Individuals at higher risk of colon cancer should have screening earlier and potentially more frequently. Those at higher risk of colon and rectal cancer: Individuals with a family history of colon or rectal cancer in a relative who was diagnosed before the age of 60 Individuals with a history of polyps Individuals with inflammatory bowel disease (Crohn's disease or ulcerative colitis) Individuals with a genetic predisposition to colon or rectal cancer, such as hereditary non-polyposis colon cancer (HNPCC) syndrome or familial adenomatous polyposis (FAP) syndrome Cervical Cancer Screening For more information see the ACS document Cervical Cancer: Early Detection. www.cancer.org/.../itlfrcdi-jqvpru-chfgmgvpsz-gko-tnotc-awezkohai-shanel Cervical cancer screening should not begin before age 21. Screening Pap tests should be performed every three years between age 21 and 29 Women age 30 or older should be screened every 3 years with a Pap test or every five years with a combined Pap/Human Papillomavirus (HPV) test. Women 65 years of age or older who have had negative consecutive screening in the preceding 10 years should discontinue screening. Women who have had a total hysterectomy (removal of the uterus and cervix) should also stop having Pap tests, unless the surgery was done as a treatment for cervical cancer or pre-cancer. Women who have had a hysterectomy without removal of the cervix should continue to have Pap tests. Women who have had a history of a serious cervical precancer should continue screening for at least20 years, even if that extends screening past age 65. Women who have been vaccinated against HPV should still follow these screening guidelines. Treatment for most gynecological cancers involves hysterectomy and alters recommendations for Pap tests. Refer to your personalized cancer treatment summary and survivorship care plan to see what the Pap test recommendations are for you. If you need another copy of your care plan, please ask your doctor. Sun Exposure and Skin Cancer Risk Skin cancer is the most commonly diagnosed type of cancer, and rates are on the rise. However, thisis one cancer that in most cases can be prevented or detected early. While you may hear that you need the sun to make vitamin D, in reality you only need a few minutes a day to do this. Exposure to ultraviolet (UV) rays, either by natural sunlight or tanning beds, can lead to skin cancer. In additio n, UV rays lead to other forms of skin damage, including wrinkles, loss of skin elasticity, dark patches (sometimes called age spots or liver spots), and pre- cancerous skin changes (such as dry, scaly, rough patches). Although dark- skinned people are less likely to develop skin cancer, they can anddo develop skin cancers, most often in areas that are not exposed to sun (on the soles of the feet,under nails, and genitals). You can do a lot to protect yourself from damaging UV rays and to detect skin cancer early. Start by practicing sun safety, including using a broad spectrum sunscreen (which protects against UVA and UVB rays) with an SPF of at least 30 every day, avoiding peak sun times (10 a.m. to 4 p.m., when therays are strongest) and wearing protective clothing such as hats, sunglasses and long- sleeved shirts. Examine your skin regularly so you become familiar with any moles or birthmarks. If a mole has changed in any way, you should have a health care provider examine the area. This includes a change in size, shape or color; the development of scaliness, bleeding, oozing, itchiness or pain; or the development of a sore that will not heal. If you have a lot of moles, it may be helpful to make note of moles using photographs or a mole map . For a guide to performing a skin exam, visit www.skincarephysicians.com/skincancernet/skin_examinations.html. Healthy Lifestyle For some cancer survivors, the experience is the motivation to making healthy lifestyle changes. Itmay seem insignificant, but these changes have been shown to reduce the risk of the cancer coming back or a new cancer developing. Below are some tips on adopting a healthier lifestyle. Maintaining ahealthy weight is important in cancer prevention, as is physical activity and eating a healthy diet. Strive to incorporate all three pieces of the puzzle: healthy weight, balanced diet and regular exercise. Recommendation Goal Comments Maintain a healthy weight. For more information, visit http://www.nhlbi.nih.gov/health/public/heart/obesity/lose_wt/index.htm www.win.niddk.nih.gov Call the [place] [employer] Talk to your health care team about what a healthy weight is for you, and take stepsto reach and maintain that weight. For many people reaching their ideal weight can be a challenge; however, losing even 5 to 10 poundscan lower blood pressure, blood sugar and cholesterol levels. Weigh yourself weekly to monitor for weight gain/loss Being overweight can increase your chance of your cancer coming back. Maintaining a healthy weight, physical activity and eating a healthy diet are all important in cancer prevention. Being overweight can increase your chance of having high blood pressure, high blood sugar and/or high cholesterol, which can lead to heart disease, diabetes and stroke. If you would like more information about your blood sugar, cholesterol or blood pressure, talk with your primary care provider. Eat a healthy diet, mostly from plant sources. For more information, visit http://www.choosemyplate.gov/food-groups/ Eat healthy, including plenty of fruits and vegetables daily. Drink more water, less soda and juice. Limit how much alcohol you drink (if you drink at all). Strive to have two- thirds of your plate be vegetables, fruits, whole grains and beans, while one- third or less should be an animal product. Choose fish and chicken and limit red meat and processed meats. Limit intake of alcohol to two drinks per day. Exercise. To learn more about recommendations for diet, activity and weight, visit AICR???s Guidelines for Survivors http://preventcancer.aicr.org/site/PageServer?pagename=patients_survivors_guidel anaid ACS Eat Healthy and Get Active www.cancer.org/Healthy/EatHealthyGetActive/index Experts recommend at least 30 minutes of jijowtvo-ls-eienwhjv activity per day, five days a week. Research shows that exercise can help you control your weight, improve your energy level, and help you sleep at night. The [place] is to find a physical activity you enjoy such as walking, dancing or gardening and do it regularly. If you have been inactivefor a while, start out slowly. You can start out by exercising 10 minutes a day several days a week. If you feel dizzy, short of breath, or have chest pain during exercise, stop exercising and talk with your primary care doctor. Do not use tobacco in any form. For more information, visit http://www.cdc.gov/tobacco/campaign/tips/ If you use tobacco, quit as soon as possible. Smoking is the most preventable cause of in the [place] If you would like more information, ask your doctor or you can call a national hotline at 0(179)-QUIT-NOW. Keep your bones healthy. For more information, visit www.niams.nih.gov/Health.../Bone/Bone_Health/bone_health_for_life For the FRAX (Fracture Risk Assessment) tool, visit: www.shef.ac.uk/FRAX/ , to estimate 10-year risks for fractures Ask your primary care provider aboutscreening for osteoporosis beginning at age 65 or at a younger age if your bone fracture risk is increased. The 10-year risk for osteoporotic fractures can be calculated for individuals by using the FRAX tool and could help to guide screening decisions for women younger than 65 years. Maximize your bone health by eating healthy, getting enough calcium and vitamin D, and exercising regularly. Certain cancer treatments, such as chemotherapy or hormonal therapy, can cause bone loss. In addition, after menopause, women can lose up to 20 percent of their bone density. The good news is that women can maximize their bone density by eating healthy, getting enough calcium and vitamin D, and exercising regularly. Age (years) Calcium per day Vitamin D per day 19 to 49 1000 milligrams 600 units 50 or over 1200 milligrams 800 units Have regular check-ups by a healthcare professional. For more information about healthy screening tests for men visit the U.S. Department of Health and Human Services. http://www.womenshealth.gov/mupezmpib-segvc-icj-vaccines/eogzeoqfb-jssnk-kjg-men / For more information about adult vaccinations visit the CDC: http://www.cdc.gov/vaccines/recs/schedules/adult-schedule.htm Keep up-to-date on general health screening tests, including cholesterol, blood pressure and glucose (blood sugar) levels. Get an annual influenza vaccine (flu shot). Get vaccinated with the pneumococcal vaccine, which prevents a type of pneumonia, and re-vaccinatedas determined by your health care team. Don???t forget dental and eye health! The [place] [employer] recommends adults have their eyes examined every two years until age 60, then annually. People who wear glasses or correctivelenses or are at high risk for eye problems (i.e., diabetics, family history of eye disease) shouldbe seen more frequently. The [place] [employer] recommends adults see their dentist at least once a year. 3 [facility] [address] , [address] [address] Resolved Problems Problem Noted Date Diagnosed Date Resolved Date Port-A-Cath in place 07/30/2019 020
--- OUTSIDE RECORDS SUMMARY | 2025-07-05 07:45 | XMS_ITS | Encounter Summary ---
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 CLEANER - [facility] Social History Tobacco Use Types Packs/Day Years Used Date Smoking Tobacco: Never Smokeless Tobacco: Never Alcohol Use Standard Drinks/Week Comments No 0 (1 standard drink = 0.6 oz pur e alcohol) AUDIT-C Answer Date Recorded Frequency of Alcohol Consumption Never 09/10/2019 Average Number of Drinks Not on file 019 Frequency of Binge Drinking Not on file 08/27 PHQ-2 Answer Date Recorded Retired Total Score 0 01/04/2020 Comments No Sex and Gender Information Value Date Recorded Sex Assigned at Not on file Legal Sex Female 3:01 PM EDT Gender Identity Not on file Sexual Orientation Not on file documented as of this encounter Plan of Treatment Not on file documented as of this encounter Visit Diagnoses Not on filedocumented in this encounter Additional Health Concerns Infection Onset Date Last Indicated Resolved Time COVID Screen (preop/placement) 05/05/2022 05/05/2022 05/05/2022 8:16 PM EDT COVID (confirmed) 05/05/2022 05/05/2022 06/03/2022 3:13 PM EDT COVID (History) 05/05/2022 06/03/2022 08/03/2022 9 :08 PM EDT documented as of this encounter Care Teams Sagger Preparer Relationship Specialty Start Date End Date Sidney Maldonado MD [address] [facility] [address] [facility] [place] [address] PCP - General Adolescent Medicine 05/31/19 documented as of this encounter
--- OUTSIDE RECORDS SUMMARY | 2025-07-05 07:45 | XMS_ITS | Encounter Summary ---
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
--- OUTSIDE RECORDS SUMMARY | 2025-07-05 07:45 | XMS_ITS | Patient Health Record ---
Author Organization [facility] Address [address] [place] [address] Care Team Providers Care Director Of Marketing And Promotions Name Role Phone Sidney Maldonado Primary Care Provider [phone] Migration, Provider Unavailable Unavailable Allergies Allergen (clinical drug ingredient) Drug/Non Drug Allergy documented on EMR Reaction Allergy Type Onset Date Status Tegaderm Unknown Allergy Active Results Component Value Reference Range Notes THYROID PANEL WITH TSH (7444 ) Reviewed date:08/19/2024 09:24:31 AM Interpretation: Performing Lab:GUADALUPE [employer]ie[employer]e1355 [facility]uMay[facility] HospitalXybzNY[address] Vinod Vizcarra Notes/Report: NON-FASTING; NON-FASTING; NON-FASTING; NON-FASTING T3 UPTAKE 32 22-35 % T4 (THYROXINE), TOTAL 14.5 5.1-11.9 mcg/dL FREE T4 INDEX (T7) 4.6 1.4-3.8 TSH 4.06 0.40-4.50 mIU/L COMPREHENSIVE METABOLIC PANE L (12582) Reviewed date:08/19/2024 09:24:31 AM Interpretation: Performing Lab:GUADALUPE GMIe1355 KaymbuMayo Clinic HospitalIipsRC[address] Vinod Vizcarra Notes/Report: NON-FASTING; NON-FASTING; NON-FASTING; NON-FASTING GLUCOSE 105 65-99 mg/dL Fasting reference interval For someone without known diabetes, a glucose value between 100 and 125 mg/dL is consistent with prediabetes and should be confirmed with a follow-up test. UREA NITROGEN (BUN) 31 7-25 mg/dL CREATININE 1.27 0.60-1.00 mg/dL EGFR 44 > OR = 60 mL/min/1.73m2 BUN/CREATININE RATIO 24 6-22 (calc) SODIUM 145 135-146 mmol/L POTASSIUM 5.2 3.5-5.3 mmol/L CHLORIDE 106 98-110 mmol/L CARBON DIOXIDE 23 20-32 mmol/L CALCIUM 10.5 8.6-10.4 mg/dL PROTEIN, TOTAL 7.9 6.1-8.1 g/dL ALBUMIN 5.2 3.6-5.1 g/dL GLOBULIN 2.7 1.9-3.7 g/dL (calc) ALBUMIN/GLOBULIN RATIO 1.9 1.0-2.5 (calc) BILIRUBIN, TOTAL 1.1 0.2-1.2 mg/dL ALKALINE PHOSPHATASE 56 37-153 U/L AST 19 10-35 U/L ALT 56 6-29 U/L MAGNESIUM (622) Reviewed date:08/19/2024 09:24:31 AM Interpretation: Performing Lab:GUADALUPE Ellie[employer]e1355 Kaymbu, Sonexa TherapeuticsQqddKC[address] Vinod Vizcarra Notes/Report: NON-FASTING; NON-FASTING; NON-FASTING; NON-FASTING MAGNESIUM 2.6 1.5-2.5 mg/dL CBC (INCLUDES DIFF/PLT) (639 9) Reviewed date:08/19/2024 09:24:31 AM Interpretation: Performing Lab:GUADALUPE Ellie[employer]e1355 Liquid [employer]el Sp[place], Sonexa TherapeuticsNjnsPY[address] Vinod Vizcarra Notes/Report: NON-FASTING; NON-FASTING; NON-FASTING; NON-FASTING WHITE BLOOD CELL COUNT 5.8 3.8-10.8 Thousand/ uL RED BLOOD CELL COUNT 5.70 3.80-5.10 Million/uL HEMOGLOBIN 16.9 11.7-15.5 g/dL HEMATOCRIT 52.6 35.0-45.0 % MCV 92.3 80.0-100.0 fL MCH 29.6 27.0-33.0 pg MCHC 32.1 32.0-36.0 g/dL For adults, a slight decrease in the calculated MCHC value (in the range of 30 to 32 g/dL) is most likely not clinically significant; however, it should be interpreted with caution in correlation with other red cell parameters and the patient's clinical condition. RDW 13.1 11.0-15.0 % PLATELET COUNT 208 140-400 Thousand/uL MPV 11.0 7.5-12.5 fL ABSOLUTE NEUTROPHILS 3608 7949-4555 cells/uL ABSOLUTE LYMPHOCYTES 4421 623-7052 cells/uL ABSOLUTE MONOCYTES 545 200-950 cells/uL ABSOLUTE EOSINOPHILS 99 15-500 cells/uL ABSOLUTE BASOPHILS 58 0-200 cells/uL NEUTROPHILS 62.2 LYMPHOCYTES 25.7 MONOCYTES 9.4 EOSINOPHILS 1.7 BASOPHILS 1.0 THYROID PANEL WITH TSH (7444 ) Reviewed date:11/19/2024 08:13:47 AM Interpretation: Performing Lab:GUADALUPE Ellie-MyMundus Otzh9221 [employer] [facility] ServicesCrngGC[address] Vinod Vizcarra Notes/Report: NON-FASTING; NON-FASTING; NON-FASTING; NON-FASTING T3 UPTAKE 36 22-35 % T4 (THYROXINE), TOTAL 10.5 5.1-11.9 mcg/dL FREE T4 INDEX (T7) 3.8 1.4-3.8 TSH 2.22 0.40-4.50 mIU/L LIPID PANEL, STANDARD (7600) Reviewed date:11/19/2024 08:13:48 AM Interpretation: Performing Lab:GUADALUPE Ellie-[employer] Acjg9858 [employer] [facility], [facility] ServicesYvwfNR[address] Vinod Vizcarra Notes/Report: NON-FASTING; NON-FASTING; NON-FASTING; NON-FASTING CHOLESTEROL, TOTAL 346 <200 mg/dL HDL CHOLESTEROL 55 > OR = 50 mg/dL TRIGLYCERIDES 237 <150 mg/dL If a non-fasting specimen was collected, consider repeat triglyceride testing on a fasting specimen if clinically indicated. Radha et al. J. of Clin. Lipidol. 2015;9:129-169. LDL-CHOLESTEROL 247 LDL-C levels > or = 190 mg/dL may indicate familial hypercholesterolemia (FH). Clinical assessment and measurement of blood lipid levels should be considered for all first degree relatives of patients with an FH diagnosis. LDL Cholesterol (LDL-C) levels > or = 300 mg/dL may indicate homozygous familial hypercholesterolemia (HoFH). Untreated, these extremely high LDL-C levels can result in premature CV events and mortality. Patients should be identified early and provided appropriate interventions to reduce the cumulative LDL-C burden from . For questions about testing for familial hypercholesterolemia, please call [employer] Client Services at [phone]. Radha Allen, et al. J National Lipid Association Recommendations for Patient-Centered Management of Dyslipidemia: Part 1 Journal of Clinical Lipidology 2015;9(2), 129-169. Katherin Johnson et al. (2014). Homozygous familial hypercholesterolaemia: new insights and guidance for clinicians to improve detection and clinical management. Heart Journal, 35(32), 1993-8115. Reference range: <100 Desirable range <100 mg/dL for primary prevention; <70 mg/dL for patients with CHD or diabetic patients with > or = 2 CHD risk factors. LDL-C is now calculated using the Festus-Parker calculation, which is a validated novel method providing better accuracy than the Friedewald equation in the estimation of LDL-C. Festus SS et al. ANASTASIA. 2013;310(19): 3229-2912 (http://education.Cashplay.coDiagnosti [employer].com/faq/TQE750) CHOL/HDLC RATIO 6.3 <5.0 (calc) NON HDL CHOLESTEROL 291 <130 mg/dL (calc) Non-HDL level > or = 220 is very high and may indicate genetic familial hypercholesterolemia (FH). Clinical assessment and measurement of blood lipid levels should be considered for all first-degree relatives of patients with an FH diagnosis. For patients with diabetes plus 1 major ASCVD risk factor, treating to a non-HDL-C goal of <100 mg/dL (LDL-C of <70 mg/dL) is considered a therapeutic option. COMPREHENSIVE METABOLIC JUAN DAVID Hughes (10063) Reviewed date:11/19/2024 08:13:48 AM Interpretation: Performing Lab:GUADALUPE, [employer] Viri-[place] Collinse[address] Marilee Morris, Morro CollinsUwpgGX[address] Vinod Vizcarra Notes/Report: NON-FASTING; NON-FASTING; NON-FASTING; NON-FASTING GLUCOSE 84 65-99 mg/dL Fasting reference interval UREA NITROGEN (BUN) 18 7-25 mg/dL CREATININE 1.12 0.60-1.00 mg/dL EGFR 51 > OR = 60 mL/min/1.73m2 BUN/CREATININE RATIO 16 6-22 (calc) SODIUM 140 135-146 mmol/L POTASSIUM 4.7 3.5-5.3 mmol/L CHLORIDE 107 98-110 mmol/L CARBON DIOXIDE 23 20-32 mmol/L CALCIUM 9.9 8.6-10.4 mg/dL PROTEIN, TOTAL 7.1 6.1-8.1 g/dL ALBUMIN 4.6 3.6-5.1 g/dL GLOBULIN 2.5 1.9-3.7 g/dL (calc) ALBUMIN/GLOBULIN RATIO 1.8 1.0-2.5 (calc) BILIRUBIN, TOTAL 0.7 0.2-1.2 mg/dL ALKALINE PHOSPHATASE 52 37-153 U/L AST 17 10-35 U/L ALT 20 6-29 U/L HEMOGLOBIN A1c (496) Reviewed date:11/19/2024 08:13:48 AM Interpretation: Performing Lab:GUADALUPE, Ellie-MyM[employer]us Ynuo2977 [employer]el [facility], Sonexa TherapeuticsKnmgDR[address] Vinod Vizcarra Notes/Report: NON-FASTING; NON-FASTING; NON-FASTING; NON-FASTING HEMOGLOBIN A1c 5.7 <5.7 % of total Hgb For someone without known diabetes, a hemoglobin A1c value between 5.7% and 6.4% is consistent with prediabetes and should be confirmed with a follow-up test. For someone with known diabetes, a value <7% indicates that their diabetes is well controlled. A1c targets should be individualized based on duration of diabetes, age, comorbid conditions, and other considerations. This assay result is consistent with an increased risk of diabetes. Currently, no consensus exists regarding use of hemoglobin A1c for diagnosis of diabetes for children. LIPID PANEL, STANDARD (7600) Reviewed date:05/13/2025 10:18:45 AM Interpretation: Performing Lab:GUADALUPE, Ellie-MyMundus Vcpp[address], [employer])OhgvCX[address] Vinod Vizcarra Notes/Report: NON-FASTING; NON-FASTING; NON-FASTING; NON-FASTING; NON-FAST FASTING:YES FASTING: YES CHOLESTEROL, TOTAL 288 <200 mg/dL HDL CHOLESTEROL 66 > OR = 50 mg/dL TRIGLYCERIDES 109 <150 mg/dL LDL-CHOLESTEROL 198 LDL-C levels > or = 190 mg/dL may indicate familial hypercholesterolemia (FH). Clinical assessment and measurement of blood lipid levels should be considered for all first degree relatives of patients with an FH diagnosis. LDL Cholesterol (LDL-C) levels > or = 300 mg/dL may indicate homozygous familial hypercholesterolemia (HoFH). Untreated, these extremely high LDL-C levels can result in premature CV events and mortality. Patients should be identified early and provided appropriate interventions to reduce the cumulative LDL-C burden from . For questions about testing for familial hypercholesterolemia, please call [employer] Client Services at [email or web address]. Radha Allen, et al. J National Lipid Association Recommendations for Patient-Centered Management of Dyslipidemia: Part 1 Journal of Clinical Lipidology 2015;9(2), 129-169. Valentín Johnson. et al. (2014). Homozygous familial hypercholesterolaemia: new insights and guidance for clinicians to improve detection and clinical management. Heart Journal, 35(32), 9666-0832. Reference range: <100 Desirable range <100 mg/dL for primary prevention; <70 mg/dL for patients with CHD or diabetic patients with > or = 2 CHD risk factors. LDL-C is now calculated using the Festus-Parker calculation, which is a validated novel method providing better accuracy than the Friedewald equation in the estimation of LDL-C. Festus SS et al. ANASTASIA. 2013;310(19): 0260-1178 (http://education.VOSS.com/faq/WTV214) CHOL/HDLC RATIO 4.4 <5.0 (calc) NON HDL CHOLESTEROL 222 <130 mg/dL (calc) Non-HDL level > or = 220 is very high and may indicate genetic familial hypercholesterolemia (FH). Clinical assessment and measurement of blood lipid levels should be considered for all first-degree relatives of patients with an FH diagnosis. For patients with diabetes plus 1 major ASCVD risk factor, treating to a non-HDL-C goal of <100 mg/dL (LDL-C of <70 mg/dL) is considered a therapeutic option. COMPREHENSIVE METABOLIC JUAN DAVID Hughes ([id number]) Reviewed date:05/13/2025 10:18:45 AM Interpretation: Performing Lab:GUADALUPE [employer] Viri-Morro Kdhy5551 [facility], Morro CollinsUwrcGG[address] Vinod Vizcarra Notes/Report: NON-FASTING; NON-FASTING; NON-FASTING; NON-FASTING; NON-FAST FASTING:YES FASTING: YES GLUCOSE 89 65-99 mg/dL Fasting reference interval UREA NITROGEN (BUN) 21 7-25 mg/dL CREATININE 1.01 0.60-1.00 mg/dL EGFR 58 > OR = 60 mL/min/1.73m2 BUN/CREATININE RATIO 21 6-22 (calc) SODIUM 141 135-146 mmol/L POTASSIUM 4.7 3.5-5.3 mmol/L CHLORIDE 106 98-110 mmol/L CARBON DIOXIDE 24 20-32 mmol/L CALCIUM 9.6 8.6-10.4 mg/dL PROTEIN, TOTAL 6.4 6.1-8.1 g/dL ALBUMIN 4.3 3.6-5.1 g/dL GLOBULIN 2.1 1.9-3.7 g/dL (calc) ALBUMIN/GLOBULIN RATIO 2.0 1.0-2.5 (calc) BILIRUBIN, TOTAL 0.7 0.2-1.2 mg/dL ALKALINE PHOSPHATASE 51 37-153 U/L AST 13 10-35 U/L ALT 15 6-29 U/L MAGNESIUM (622) Reviewed date:05/13/2025 10:18:46 AM Interpretation: Performing Lab:GUADALUPE GMIe1355 Kaymbu, [employer])KqmyKV[address] Vinod Vizcarra Notes/Report: NON-FASTING; NON-FASTING; NON-FASTING; NON-FASTING; NON-FAST FASTING:YES FASTING: YES MAGNESIUM 2.2 1.5-2.5 mg/dL CBC (INCLUDES DIFF/PLT) (639 9) Reviewed date:05/13/2025 10:18:45 AM Interpretation: Performing Lab:GUADALUPE GMIe1355 Liquid Sc[employer]ostel Spaseebo, [employer])AztfJS[address] Vinod Vizcarra Notes/Report: NON-FASTING; NON-FASTING; NON-FASTING; NON-FASTING; NON-FAST FASTING:YES FASTING: YES WHITE BLOOD CELL COUNT 3.8 3.8-10.8 Thousand/ uL RED BLOOD CELL COUNT 4.51 3.80-5.10 Million/uL HEMOGLOBIN 13.7 11.7-15.5 g/dL HEMATOCRIT 43.7 35.0-45.0 % MCV 96.9 80.0-100.0 fL MCH 30.4 27.0-33.0 pg MCHC 31.4 32.0-36.0 g/dL For adults, a slight decrease in the calculated MCHC value (in the range of 30 to 32 g/dL) is most likely not clinically significant; however, it should be interpreted with caution in correlation with other red cell parameters and the patient's clinical condition. RDW 13.3 11.0-15.0 % PLATELET COUNT 175 140-400 Thousand/uL MPV 9.2 7.5-12.5 fL ABSOLUTE NEUTROPHILS 2360 9536-4674 cells/uL ABSOLUTE LYMPHOCYTES 202 666-1141 cells/uL ABSOLUTE MONOCYTES 399 200-950 cells/uL ABSOLUTE EOSINOPHILS 80 15-500 cells/uL ABSOLUTE BASOPHILS 38 0-200 cells/uL NEUTROPHILS 62.1 LYMPHOCYTES 24.3 MONOCYTES 10.5 EOSINOPHILS 2.1 BASOPHILS 1.0 THYROID PANEL WITH TSH (7444 ) Reviewed date:05/13/2025 10:18:45 AM Interpretation: Performing Lab:GUADALUPE Ellie-MyMundus Buhg2138 Liquid Sc[employer]ostel [employer], Sonexa TherapeuticsRevyLE[address] Vinod Vizcarra Notes/Report: NON-FASTING; NON-FASTING; NON-FASTING; NON-FASTING; NON-FAST FASTING:YES FASTING: YES T3 UPTAKE 37 22-35 % T4 (THYROXINE), TOTAL 10.4 5.1-11.9 mcg/dL FREE T4 INDEX (T7) 3.8 1.4-3.8 TSH 0.95 0.40-4.50 mIU/L VITAMIN B12/FOLATE, SERUM PA MIRNA (7065) Reviewed date:05/13/2025 10:18:45 AM Interpretation: Performing Lab:GUADALUPE Ellie-[employer] Zjzt[address], [employer]EiryFS[address] Vinod Vizcarra Notes/Report: NON-FASTING; NON-FASTING; NON-FASTING; NON-FASTING; NON-FAST FASTING:YES FASTING: YES VITAMIN B12 355 320-2304 pg/mL Please Note: Although the reference range for vitamin B12 is 200-1100 pg/mL, it has been reported that between 5 and 10% of patients with values between 200 and 400 pg/mL may experience neuropsychiatric and hematologic abnormalities due to occult B12 deficiency; less than 1% of patients with values above 400 pg/mL will have symptoms. FOLATE, SERUM 12.9 Reference Range Low: <3.4 Borderline: 3.4-5.4 Normal: >5.4 VITAMIN D,25-OH,TOTAL,IA (17 306) Reviewed date:05/13/2025 10:18:45 AM Interpretation: Performing Lab:GUADALUPE, [facility]-[place] [facility], [place] RizviPxthFI[address] Vinod Abigail Vizcarra Notes/Report: NON-FASTING; NON-FASTING; NON-FASTING; NON-FASTING; NON-FAST FASTING:YES FASTING: YES VITAMIN D,25-OH,TOTAL,IA 29 30-100 ng/mL Vitamin D Status 25-OH Vitamin D: Deficiency: <20 ng/mL Insufficiency: 20 - 29 ng/mL Optimal: > or = 30 ng/mL For 25-OH Vitamin D testing on patients on D2-supplementation and patients for whom quantitation of D2 and D3 fractions is required, the QuestAssureD(TM) 25-OH VIT D, (D2,D3), LC/MS/MS is recommended: order code 25177 (patients >2yrs). See Note 1 Note 1 For additional information, please refer to http://education.Glowforth/faq/FYP340 (This link is being provided for informational/ educational purposes only.) Reason For Referral Reason Needs appt with [facility] [place] ist Oncology- Olesya Bah- already established Referral Organization [facility] Referring Provider First Name Sidney Referring Provider Last Name Erica Referring Provider Speciality Internal M edicine Referred Organization [facility] Referrals Referred Address [address] [place] [phone], Referred Provider Specialty Hematology General Notes Corrie Kelly 08/2025 12:40:24 PM > faxed and they will call patient, Carey Hunter 05/18/2025 10:20:01 AM > called patient and she declined the appt stating she is just going to follow up care with Erica Referral Priority Routine Medications Medication SIG (Take, Route, Frequency, Duration) Notes Start Date End Date Status POTASSIUM CHLORIDE (EQV-K-TAB) 20 MEQ TAKE TWO TABLETS BY MOUTH TWICE A DAY; Duration: 90 days Active C-PAP MASK AND SUPPLIES DIRECTED; Dur ation: 30 DAYS 07/29/2017 Active C-PAP MACHINE DIRECTED 04/01/2016 Act canelo Wellbutrin XL 300 MG take one tablet by mouth daily; Duration: 90 days Active Jardiance 10 MG 1 tab(s) orally once a day (in the morning) Active Levothyroxine Sodium 50 MCG 1/2tab orall y once a day; Duration: 90 days Active Amiodarone HCl 200 MG 1 tab(s) orally on ce a day Active Bumetanide 1 MG 1 tab(s) orally once a day Active Eliquis 5 MG as directed orally 2 times a day Active Entresto 24-26 MG 1 tab(s) orally 2 ti mes a day Active Magnesium Oxide 400 MG 1 tab(s) orally o nce a day Active Spironolactone 25 MG 1 tab(s) orally onc e a day Active Immunizations Vaccine Route Administration Date Status Comme nts Prevnar PCV-20 (Pneumococcal conjugate 20) IM Intramuscular 10/31/2022 Administered Prevnar PCV-13 (Pneumococcal conjugate 13) IM Intramuscular 06/23/2018 Administered Pneumovax-23 (pneumococccal vaccine polyvalent)2 years or older IM Intramuscular 03/13/2013 Administered Influenza (Fluzone)--Medicare only IM Intramuscular 07/25/2018 Administered Hep A Adult 2 Dose IM Intramuscular 08/06/2018 Administere d Fluzone High Dose IM Intramuscular 07/11/2020 Administered Fluzone High Dose IM Intramuscular 07/24/2021 Administered Fluzone High Dose IM Intramuscular 07/03/2023 Administered Fluzone High Dose Unknown 07/25/2024 Administered Covid Moderna Unknown 11/30/2020 Administered Covid Moderna Unknown 12/28/2020 Administered Boostrix Unknown 07/25/2024 Administered Adacel (Tdap) IM Intramuscular 03/13/2013 Administered Problems Problem Type SNOMED Code ICD Code Onset Dates Problem Status W/U Status Risk Notes Problem Malignant neoplasm of female breast (523757649) Malignant neoplasm of unspecified site of left female breast (C50.912) Active confirmed Problem Morbid obesity (disorder) (825378513) Morbid (severe) obesity due to excess calories (E66.01) Active confirmed Problem Paroxysmal atrial fibrillation (338679029) Paroxysmal atrial fibrillation (I48.0) Active confirmed Problem Anxiety (21387448) Anxiety (F41.9) Active confirmed Problem Vitamin D deficiency (80698320) Vitamin D deficiency (E55.9) Active confirmed Problem Hypertension (49053740) Hypertension (I10) Active confirmed Problem Hyperlipidemia (51707365) Hyperlipidemia (E78.5) Active confirmed Problem Vitamin B12 deficiency (non anemic) (75107762) Vitamin B 12 deficiency (E53.8) Active confirmed Problem Neuropathy (426996178) Neuropathy (G62.9) Active confirmed Problem Mammography abnormal (614069685) Abnormal mammogram of left breast (R92.8) Active confirmed Problem Obesity (078826685) Obesity (BMI 30-39.9) (E66.9) Active confirmed Problem Acquired hypothyroidism (131297107) Acquired hypothyroidism (E03.9) Active confirmed Problem Sleep apnea (47815545) Sleep apnea (G47.30) Active confirmed Problem Cardiac arrhythmia (157014328) Atrial dysrhythmia (I49.8) Active confirmed Problem Dysthymia (92724639) Dysthymia (F34.1) Active confirmed Problem Statin not tolerated (914461607) Statin intolerance (Z78.9) Active confirmed Problem Personal history of primary malignant neoplasm of breast (892439159) History of breast cancer in female (Z85.3) Active confirmed Problem Acute systolic heart failure (421873143) Acute systolic heart failure (I50.21) Active confirmed Problem Adult health examination (835572972) Healthcare maintenance (Z00.00) Active confirmed Problem Obstructive sleep apnea syndrome (62643079) ARI on CPAP (G47.33) Active confirmed Problem 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) Active confirmed Problem Meralgia paresthetica (49107977) Meralgia paresthetica of both lower extremities (G57.13) Active confirmed Problem Allergic rhinitis caused by pollen (15980911) Chronic allergic rhinitis due to pollen (J30.1) Active confirmed Problem Transient ischemic attack (845557365) Transient ischemic attack (G45.9) Active confirmed Vital Signs Heart Rate 74 /min 05/03/2025 Temperature 98 degrees Fahrenheit 05/03/2025 Oximetry 98 12/30/2024 Blood pressure diastolic 78 mm Hg 05/03/2025 Height 5 ft 1.5 in in 05/03/2025 Blood pressure systolic 124 mm Hg 05/03/2025 Weight 208 lbs 05/03/2025 BMI 38.66 kg/m2 05/03/2025 Encounters Encounter Location Date Provider Diagnosis [facility] JEAN MARIE [address] [place] [address] 01/29/2025 Provider Migration Subacute cough R05.2 [facility] [place] [address] [address] 08/17/2024 Sidney Besmaya Paroxysmal atrial fibrillation I48.0 ; Acute systolic heart failure I50.21 ; Elevated liver enzymes R74.8 and Hospital discharge follow-up Z09 [facility] [place] [address] [address] 09/14/2024 Sidney Besmaya Paroxysmal atrial fibrillation I48.0 ; Anxiety F41.9 and Acute systolic heart failure I50.21 [facility] JEAN MARIE [address] [facility] [address] [place] [address] 11/17/2024 Sidney Besmaya Hypertension I10 ; Hyperlipidemia E78.5 ; Paroxysmal atrial fibrillation I48.0 ; Acute systolic heart failure I50.21 ; Healthcare maintenance Z00.00 and Hyperglycemia R73.9 [facility] [place] [address] [address] 12/30/2024 Sidney Maldonado Subacute cough R05.2 ; Viral bronchitis J20.8 ; COVID-19 U07.1 and Hypertension I10 [facility] [place] [address] [address] 05/03/2025 Sidney Besson Hypertension I10 ; Hyperlipidemia E78.5 ; Vitamin B 12 deficiency E53.8 ; Acquired hypothyroidism E03.9 ; Malignant neoplasm of unspecified site of left female breast C50.912 ; Vitamin D deficiency E55.9 and Paroxysmal atrial fibrillation I48.0 [facility] JEAN MARIE [address] [facility] [address] [place], [place] [address] 08/11/2024 Sidney Besson [facility] [place] [address] [address] 10/01/2024 Sidney Besson [facility] [place] [address] [address] 12/06/2024 Sidney Besson [facility] [place] [address] [address] 01/18/2025 Sidney Maldonado [facility] [address] [place] [address] 04/22/2025 Sidney Ringson [facility] [address] [place] [address] 05/10/2025 Sidney Ringson [facility] [address] [place] [address] 06/29/2025 Sidney Maldonado Assessments Encounter Date Diagnosis (ICD Code) Assessment Notes Treatment Notes Treatment Clinical Notes Section Notes 09/14/2024 Paroxysmal atrial fibrillation (ICD-10 - I48.0) Currently in regular rhythm. Appears to be sinus. Medication changes from cardiology noted. 09/14/2024 Anxiety (ICD-10 - F41.9) Patient does well except for procedure scanning. Will send diazepam for as needed MRI/cardiac testing use 08/17/2024 Paroxysmal atrial fibrillation (ICD-10 - I48.0) New-onset. Recently admitted at [facility] for RVR. Non-ischemic (normal LHC). Will apparently undergo CMR to rule out infiltrative etiology. Following with Dr. Durbin. On amiodarone 400mg TID for loading dose. Will follow up with cardiology this . Check TSH today. Will recommend eye exam if she plans to be on amiodarone jail. On Eliquis 5mg BID. Will check CBC today. Not having bleeding issues. Told her to stop aspirin. Check CMP and Mg. 08/17/2024 Acute systolic heart failure (ICD-10 - I50.21) Most likely tachyarrhythmia-me diated given normal LHC. Following with Dr. Durbin. GDMT - metoprolol succinate 25mg daily, Farxiga 10mg daily, Entrest 24-26mg BID, and spironolactone 25mg daily. Tolerating well. HR and BP appropriate. On daily diuresis with Bumex 1mg daily. Will check CMP and Mg given new medications. 05/03/2025 Hypertension (ICD-10 - I10) Good BP control - no changes in meds 05/03/2025 Hyperlipidemia (ICD-10 - E78.5) Check ldl.. needs aggresive control 01/29/2025 Subacute cough (ICD-10 - R05.2) 11/17/2024 Hypertension (ICD-10 - I10) BP is 126/72 in office today. Currently on metoprolol. Continue current regimen 11/17/2024 Hyperlipidemia (ICD-10 - E78.5) Patient is not currently on medication for hyperlipidemia. Patient was not interested in discussing therapy options. Will draw lipid panel today and will personally review results 12/30/2024 Viral bronchitis (ICD-10 - J20.8) Discussed supportive care for COVID-19. Discussed if wheezing or coughing up mucus continues we will treat with antibiotics in the next week or so. 12/30/2024 Subacute cough (ICD-10 - R05.2) Cough medicine as noted 12/30/2024 COVID-19 (ICD-10 - U07.1) Discussed importance of pulmonary toilet and hydration. Advised on vitamin regimen. Discussed reasons to seek care in clinic or ED (worsening cough, shortness of breath, high fever not responding to treatment, inability to tolerate typical PO intake). Also recommended self-quarantine at home 5 days from symptom onset. 11/17/2024 Paroxysmal atrial fibrillation (ICD-10 - I48.0) Appears to be in regular today. She reported an episode of breathlessness over the weekend that she believed to be a. fib. During this episode, she states that she couldn't get a deep breath, but denied palpitations and chest pain. I instructed the patient to contact me if this happens again and we will consider a monitor. Currently on Eliquis and amiodarone. Continue current regimen. Will draw TSH panel today to assess for side effects from amiodarone. 05/03/2025 Vitamin B 12 deficiency (ICD-10 - E53.8) Asymptomatic... check levels 08/17/2024 Elevated liver enzymes (ICD-10 - R74.8) ALT 200 and AST 77 in hospital. Likely due to congestive hepatopathy given new onset HF and atrial fibrillation. Will check CMP today to make sure this is resolving. 09/14/2024 Acute systolic heart failure (ICD-10 - I50.21) Patient still on LifeVest. Very uncomfortable. Encouraged her to discuss this with cardiology to see when she can come out of this. Follow-up in 2 months to reassess volume status and current other medication 08/17/2024 Hospital discharge follow-up (ICD-10 - Z09) Reviewed discharge summary, medication changes as noted. Medicine reconciliation done personally 05/03/2025 Acquired hypothyroidism (ICD-10 - E03.9) Cliniclly euthyroid.. will check levels 11/17/2024 Acute systolic heart failure (ICD-10 - I50.21) Currently on goal-directed therapy with spironolactone, metoprolol, Jardiance, and Entresto. Continue goal-directed therapy. Since last visit, patient switched from Farxiga to Jardiance due to Medicare coverage. 12/30/2024 Hypertension (ICD-10 - I10) Cardiac symptoms seem stable. No change in plans. Follow-up 2 to 3 months 11/17/2024 Healthcare maintenance (ICD-10 - Z00.00) Medicare wellness form reviewed with patient in room today. Patient denies depression, but reports occasional bouts of feeling down . She is currently on bupropion. Patient has not received Shingrix and RSV vaccine. Follow-up in 1 month. 05/03/2025 Malignant neoplasm of unspecified site of left female breast (ICD-10 - C50.912) Follows with [facility] 05/03/2025 Vitamin D deficiency (ICD-10 - E55.9) 11/17/2024 Hyperglycemia (ICD-10 - R73.9) Patient has a past history of hyperglycemia. Will collect A1C today. 05/03/2025 Paroxysmal atrial fibrillation (ICD-10 - I48.0) In apparent sinus rhythm... will follow... on appropriate meds. Plan Of Treatment Pending Test Test Name Order Date Urinalysis 09/28/2011 Physical Therapy 09/13/2020 Physical Therapy 12/07/2015 Occupational Therapy : Eval & Treatment 09/13/2020 H-CBC with AUTO DIFF 02/24/2018 H-HGBA1C 02/24/2018 C-CMP 12/19/2020 C-CMP 10/04/2014 C-LIPID PANEL 10/04/2014 C-LIPID PANEL 12/19/2020 C-THYROID PROFILE 03/02/2019 C-THYROID PROFILE 06/23/2018 C-THYROID PROFILE 04/04/2020 TSH 10/31/2022 CBC With Differential/Platelet 3 Vitamin D, 1,25 Dihydroxy 10/31/2022 Lipid Panel 10/31/2022 Vitamin B12 10/31/2022 VENIPUNCT, ROUTINE* 12/07/2015 Rapid Covid/Flu A-B Combo 12/30/2024 Future Test Test Name Order Date HEMOGLOBIN A1c (496) 05/09/2025 Next Appt Details Provider Name:Sidney Maldonado, 08/23/2025 10:30:00 AM, [address], [id number], Insurance Providers Payer Name Payer Address Payer Phone Subscriber Number Group Number Insured Name Patient Relationship to Insured Coverage Start Date Coverage End Date [place] [address] [place] [address] [id number] Meggan Sinclair Self - patient is the insured 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
--- OUTSIDE RECORDS SUMMARY | 2025-07-05 07:45 | XMS_ITS | Clinical Summary ---
Author Organization [facility] Address [address] [place] [address] Care Team Providers Care Plumbing Assembler Installer Name Role Phone Sidney Maldonado MD Primary Care Provider + [phone] Allergies Active Allergy Reactions Criticality Noted Date Comments Latex Rash Low 04/25/2022 Silver Other (See Comments) Medium 07/10/2020 Skin calhoun and removes when taken off. Medications buPROPion XL (WELLBUTRIN XL) 300 MG 24 hr tablet Take 1 tablet by mouth Every Evening. 9 Active fluticasone (FLONASE) 50 MCG/ACT nasal spray 1 spray into the nostril(s) as directed by provider As Needed for Allergies. 9 Active levothyroxine (SYNTHROID, LEVOTHROID) 50 MCG tablet Take 1 tablet by mouth Every Morning. 9 Active potassium chloride (K-DUR,KLOR-CON ) 20 MEQ CR tablet Take 1 tablet by mouth Every Evening. 9 Active cholecalciferol (VITAMIN D3) 25 MCG (1000 UT) tablet Take 1 tablet by mouth Daily. Active senna (SENOKOT) 8.6 MG tablet Take 1 tablet by mouth Daily. Active vitamin B-12 (CYANOCOBALAMIN ) 1000 MCG tablet Take 1 tablet by mouth Every Evening. Active losartan-hydroc hlorothiazide (HYZAAR) 50-12.5 MG per tablet Take 1 tablet by mouth Every Evening. 2 Active Psyllium (VEGETABLE LAXATIVE PO) Take 1 dose by mouth every night at bedtime. Active ropivacaine (NAROPIN) 0.2 % infusion (INFUSYSTEM) 8 mg/hr by Peripheral Nerve route Continuous. 2 Active potassium chloride ER (K-TAB) 20 MEQ tablet controlled-rele ase ER tablet 3 Active Active Problems Problem Noted Date Diagnosed Date [...] Signed by Julio Geller MD on 09/10/2019 Resolved Problems Problem Noted Date Diagnosed Date Resolved Date Port-A-Cath in place 07/30/2019 020 Encounters Date Type Department Care Team Description 05/17/2025 Telephone [facility] [address] [facility] [address] [place] [address] Olesya Bah APRN from Last 3 Months Immunizations Immunization Administration Dates Next Due Fluzone High-Dose 65+YRS 07/22/2019 Family History Medical History Relation Name Comments No Known Problems Brother No Known Problems Daughter No Known Problems Father No Known Problems Maternal Aunt No Known Problems Maternal Grandmother No Known Problems Mother No Known Problems Paternal Aunt No Known Problems Paternal Grandmother No Known Problems Sister No Known Problems Son BRCA 1/2 Neg Hx Breast cancer Neg Hx Colon cancer Neg Hx Endometrial cancer Neg Hx Ovarian cancer Neg Hx Relation Name Status Comments Brother Daughter Father Maternal Aunt Maternal Grandmother Mother Paternal Aunt Paternal Grandmother Sister Son Social History Tobacco Use Types Packs/Day Years Used Date Smoking Tobacco: Never Smokeless Tobacco: Never Tobacco Cessation:Counseling Given: Not Answered Alcohol Use Standard Drinks/Week Comments No 0 [...] on file Sexual Orientation Not on file Last Filed Vital Signs Vital Sign Reading Time Taken Comments Blood Pressure 105/74 03/21/2023 12:51 PM EDT Pulse 83 03/21/2023 12:51 PM EDT Temperature 37.1 C (98.7 F) 03/21/2023 12:51 PM EDT Respiratory Rate 20 03/21/2023 12:51 PM EDT Oxygen Saturation 97% 03/21/2023 12:51 PM EDT Inhaled Oxygen Concentration - - Weight 99.8 kg (220 lb) 03/21/2023 12:51 PM EDT Height 152.4 cm (5') 03/21/2023 12:51 PM EDT Body Mass Index 42.97 03/21/2023 12:51 PM EDT Plan of Treatment Health Maintenance Due Date Last Done Comments DXA SCAN 1950 ZOSTER VACCINE (1 of 2) 1998 HEPATITIS C SCREENING 06/18/2019 Pneumococcal Vaccine 50+ (2 of 2 - PPSV23) 06/23/2019 06/23/2018 RSV Vaccine - Adults (1 - 1- dose 75+ series) 2023 ANNUAL WELLNESS VISIT 10/31/2023 10/31/2022 , 04/17/2021, 04/04/2020, Additional history exists COVID-19 Vaccine (2024-2 6 season) 2025 08/30/2021, 12/28/2020, 11/30/2020 INFLUENZA VACCINE 07/27/2025 07/25/2024, , 07/03/2023, Additional history exists TDAP/TD VACCINES (2 - Td or Tdap) 07/25/2034 024 COLOGUARD Discontinued 12/03/2020, 11/20/2017 COLORECTAL CANCER SCREENING Discontinued MAMMOGRAM Discontinued 12/14/2024, 11/27, 09/02/2023, Additional history exists COLON CANCER SCREENING 5 YEA R SIGMOIDOSCOPY Discontinued COLONOSCOPY Discontinued CT COLONOGRAPHY Discontinued FECAL OCCULT BLOOD TEST Discontinued FIT Testing (1 year) Discontinued Medical Devices Implanted Type Area Pre Sales Technical Consultant Device Identifier Shelf Expiration Date Model / Serial / Lot Sut/Anch Dynatape Br 2.5mm Blk/Wht - [id number] Implanted:Qty: 2 on 06/04/2022 by Enoc Genao Jr., MD at [facility] Implant Left: Arm DEPUY MITEK 10/26/2024 [id number] / / [id number] Scrw Compr Freefix Ti 4.5x28mm - [id number] Implanted:Qty: 1 on 06/04/2022 by Enoc Genao Jr., MD at [facility] Implant Left: Arm SKELETAL DYNAMICS [id number] / / Scrw Compr Freefix Ti 4.5x30mm - [id number] Implanted:Qty: 1 on 06/04/2022 by Enoc Genao Jr., MD at [facility] Implant Left: Arm SKELETAL DYNAMICS [id number] / / Plt Hum/Dist Freefix Supracondy 250mm Rt - [id number] Implanted:Qty: 1 on 06/04/2022 by Enoc Genao Jr., MD at [facility] Implant Left: Arm SKELETAL DYNAMICS [id number] / / Scrw Compr Freefix Ti 4.5x26mm - [id number] Implanted:Qty: 1 on 06/04/2022 by Enoc Genao Jr., MD at [facility] Implant Left: Arm SKELETAL DYNAMICS [id number] / / Scrw Compr Freefix Ti 4.5x24mm - [id number] Implanted:Qty: 2 on 06/04/2022 by Enoc Genao Jr., MD at [facility] Implant Left: Arm SKELETAL DYNAMICS [id number] / / Scrw Compr Freefix Ti 4.5x22mm - [id number] Implanted:Qty: 3 on 06/04/2022 by Enoc Genao Jr., MD at [facility] Implant Left: Arm SKELETAL DYNAMICS [id number] / / Scrw Compr M/Thrd Ti 3.5x18mm - [id number] Implanted:Qty: 1 on 06/04/2022 by Enoc Genao Jr., MD at [facility] Implant Left: Arm SKELETAL DYNAMICS [id number] / / Scrw M/Thrd Lk Ti 3.5x16mm - [id number] Implanted:Qty: 1 on 06/04/2022 by Enoc Genao Jr., MD at [facility] Implant Left: Arm SKELETAL DYNAMICS [id number] / / Scrw M/Thrd Lk Ti 3.5x20mm - [id number] Implanted:Qty: 1 on 06/04/2022 by Enoc Genao Jr., MD at [facility] Implant Left: Arm SKELETAL DYNAMICS [id number] S / / Explanted Type Area Pre Sales Technical Consultant Device Identifier Shelf Expiration Date Model / Serial / Lot Kwire Sgl/Kathy [id number] - [id number] Explanted:Qty: 2 on 06/04/2022 by Enoc Genao Jr., MD at [facility] Implant Left: Arm SKELETAL DYNAMICS [id number] / / Kwire Std/Kathy/Tp Freefix W/Stop Ss [id number] - [id number] Explanted:Qty: 1 on 06/04/2022 by Enoc Genao Jr., MD at [facility] Implant Left: Arm SKELETAL DYNAMICS [id number] / / Procedures Procedure Name Priority Date/Time Associated Diagnosis Comments MAMMO SCREENING DIGITAL TOMOSYNTHESIS BILATERAL W CAD Routine 12/10/2024 1:04 PM EST Visit for screening mammogram from Last 3 Months or Most Recently Relevant to Health Maintenance Results * Mammo Screening Digital Tomosynthesis Bilateral With CAD (12/10/2024 1:04 PM EST) Anatomical Region Laterality Modality Breast N/A Mammography 12/14/2024 6:25 PM EST Impressions 12/14/2024 6:28 PM EST No findings suspicious for malignancy. ACR BI-RADS CATEGORY: 1, NEGATIVE RECOMMENDATION: Yearly mammogram, yearly clinical breast exam, and encourage self breast awareness. CAD was used. The standard false negative rate of mammography is between 10% and 25%. Complex patterns or increased breast density will markedly elevate the false negative rate of mammography. A letter, in lay terminology, with the results of this exam will be mailed to the patient. If there is a palpable area of concern, biopsy should be considered regardless of imaging findings. 12/14/2024 6:28 PM by Kelli Johansen MD on Narrative 12/14/2024 6:28 PM EST ROUTINE DIGITAL SCREENING MAMMOGRAM WITH TOMOSYNTHESIS HISTORY: Routine screening. IMAGE COMPARISON: Extending to 2021. TECHNIQUE: Low dose full field digital breast tomosynthesis imaging was performed with 2D and 3D acquisitions consisting of bilateral CC and MLO views. FINDINGS: There are scattered fibroglandular densities. The fibroglandular pattern appears stable. There is no mass, worrisome microcalcifications, or architectural distortion to suggest development of malignancy. Sidney Maldonado MD [facility] MAMMOGRAPHY ORDERABLES F inal Result from Last 3 Months or Most Recently Relevant to Health Maintenance Insurance MEDICARE A & B [facility] [place] [employer] Insurance [facility] SUP Care Teams Plumbing Assembler Installer Relationship Specialty Start Date End Date Sidney Maldonado MD [address] [facility] [address] [address] PCP - General Adolescent Medicine 05/31/19
--- OUTSIDE RECORDS SUMMARY | 2025-07-05 07:46 | XMS_ITS | Encounter Summary ---
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
[2025-07-05 08:05] LABS: Hematocrit 43.5 % (37.0-47.0); Hemoglobin 13.8 g/dL (12.2-16.2); Immature Granulocytes % 0.5 %; Mean Corpuscular HGB Conc 31.7 g/dL (31.8-35.4); Mean Corpuscular Hemoglobin 29.2 pg (27.0-31.2); Mean Corpuscular Volume 92.0 fl (81-99); Nucleated Red Blood Cells % 0 %; Platelet Count 168 K/mm3 (142-424); Red Blood Count 4.73 M/mm3 (4.20-5.40); Red Cell Distribution Width-SD 45.3 fL; White Blood Count 3.8 K/mm3 (4.8-10.8)
[2025-07-05 08:28] LABS: Alanine Aminotransferase 18 U/L (12-78); Albumin Level 4.3 g/dl (3.5-5.0); Alkaline Phosphatase 64 U/L (38-126); Anion Gap 10.5 mEq/L (5-15); Aspartate Amino Transferase 20 U/L (14-36); Bilirubin,Direct 0.2 mg/dl (0.0-0.4); Bilirubin,Indirect 0.6 mg/dL (0.0-0.9); Bilirubin,Total 0.8 mg/dl (0.2-1.3); Bilirubin,Unconjugated 0.6 mg/dL (0.0-1.1); Blood Urea Nitrogen 24 mg/dl (7-17); Calcium 9.7 mg/dl (8.4-10.2); Carbon Dioxide 27 mmol/L (22.0-30.0); Chloride 108 mmol/L (98-107); Cholesterol 285 mg/dl (140-200); Creatinine,Serum 1.00 mg/dl (0.52-1.04); Estimated Glomerular Filt Rate 54 ml/min (>60); GFR (African American) 65 ML/MIN (>60); Glucose 90 mg/dl (74-100); HDL Cholesterol 61 mg/dl (40-60); Magnesium 1.8 mg/dl (1.6-2.3); Potassium 4.5 mmoL/L (3.5-5.1); Sodium 141 mmol/L (136-145); Total Protein,Serum 6.7 g/dl (6.3-8.2); Triglycerides 111 mg/dl (30-150)
[2025-07-05 08:43] LABS: Free T4 (Free Thyroxine) 2.01 ng/dl (0.78-2.19)
[2025-07-05 08:58] LABS: Thyroid Stimulating Hormone 1.21 uIU/mL (0.465-4.68)
== END 2025-07-05 23:59 | disposition home or self-care (01) ==
LOC: LAB 07:43
PROVIDERS: PCP Internal Medicine Adolescent Medicine; Visit Provider Nurse Practitioner Family
DX: I48.0 Paroxysmal atrial fibrillation (principal); I10 Essential (primary) hypertension; E03.9 Hypothyroidism, unspecified; E78.5 Hyperlipidemia, unspecified
CPT/HCPCS: 36415; 80048; 80061; 80076; 83735; 84439; 84443; 85025